=== PATIENT | female | born 1950 | race Caucasian/White ===

== ENCOUNTER 2024-08-10 15:12 | Observation (INO) ==
[2024-08-10 15:47] LABS: BASOPHILS % (AUTO) 0.1 % (0.2-1.0); EOSINOPHILS % (AUTO) 0.1 % (0.9-2.9); HEMATOCRIT 38.2 % (36.0-47.0); HEMOGLOBIN 12.9 g/dL (12.0-16.0); LYMPHOCYTES # (AUTO) 1.2 X10^3/uL (1.3-2.9); LYMPHOCYTES % (AUTO) 4.3 % (21.0-51.0); MEAN CORPUSCULAR HEMOGLOBIN 30.8 pg (27.0-34.0); MEAN CORPUSCULAR HGB CONC 33.8 g/dL (33.0-35.0); MEAN PLATELET VOLUME 7.8 fL (7.4-11.0); MONOCYTES # (AUTO) 1.1 x10^3/uL (0.3-0.8); NEUTROPHILS # (AUTO) 24.9 x10^3/uL (2.2-4.8); NEUTROPHILS % (AUTO) 91.5 % (42.0-75.0); PLATELET COUNT 417 X10^3/uL (150.0-450.0); RED BLOOD COUNT 4.19 X10^6/uL (3.5-5.4); RED CELL DISTRIBUTION WIDTH 12.7 % (11.6-16.5); WHITE BLOOD COUNT 27.2 X10^3/uL (3.6-10.0)
[2024-08-10 15:54] LABS: ALANINE AMINOTRANSFERASE 69 Units/L (12-78); ALBUMIN 3.4 g/dL (3.4-5.0); ALKALINE PHOSPHATASE 157 Units/L (46-116); ASPARTATE AMINO TRANSFERASE 52 Units/L (15-37); BLOOD UREA NITROGEN 15 mg/dL (7-18); CALCIUM 10.7 mg/dL (8.5-10.1); CARBON DIOXIDE 29.4 mmol/L (21-32); CHLORIDE 94 mmol/L (98-107); COR NA(FOR HYPERGLY) 133 mmol/L (136-145); CREATINE KINASE 485 Units/L (26-192); CREATININE 0.79 mg/dL (0.55-1.02); GLUCOSE 129 mg/dL (65-99); POTASSIUM 3.3 mmol/L (3.5-5.1); SODIUM 132 mmol/L (136-145); TOTAL PROTEIN 7.4 g/dL (6.4-8.2); eGFR NON BLACK RACES > 60 (>60)
[2024-08-10] MEDS ORDERED: NS 1,000 ML IV 2,000 ML ONE (15:55)
[2024-08-10 16:14] LABS: PLATELET MORPHOLOGY COMMENT NORMAL (NORMAL)
[2024-08-10] MEDS: NS 1,000 ML IV 1,000 ML IV ONE (16:36)
--- NOTE | 2024-08-10 17:16 | RAD ---
EXAM:CHESTHISTORY:n/v/d;COMPARISON: None.TECHNIQUE:Frontal view of the chest was submitted for interpretation.FINDINGS:The cardiomediastinal silhouette is within normal limits. Central pulmonary vascular congestion noted.IMPRESSION:Central pulmonary vascular congestion may be a sign of early pulmonary edema.THIS IS AN ELECTRONICALLY VERIFIED FINAL REPORT08/10/2024 5:12 PM - Electronically signed by Taj Sequeira MD
[2024-08-10 17:24] VITALS: BMI 25.7
[2024-08-10] MEDS: CONSULT PHARMACY - ANTIBIOTIC XX SCH (18:10)
[2024-08-10] MEDS: CONSULT PHARMACY - POTASSIUM & MAGNESIUM XX SCH (18:11)
[2024-08-10] MEDS: NS 1,000 ML IV 1,000 ML IV SCH (18:55)
[2024-08-10 19:23] LABS: BILIRUBIN,URINE NEGATIVE (NEGATIVE); BLOOD/HEMOGLOBIN,URINE 2+ (NEGATIVE); GLUCOSE, URINE NEGATIVE (NEGATIVE); KETONES,URINE 2+ (NEGATIVE); LEUKOCYTE ESTERASE ,URINE 2+ (NEGATIVE); NITRITES,URINE NEGATIVE (NEGATIVE); PROTEIN,URINE 2+ (NEGATIVE); UROBILINOGEN,URINE 1+ (NORMAL)
[2024-08-10 19:26] LABS: APPEARANCE,URINE CLEAR (CLEAR); BACTERIA,URINE 1+ /HPF (NEGATIVE); COLOR,URINE PALE YELLOW (YELLOW); RBC,URINE NONE SEEN /HPF (0-3); SQUAMOUS EPITHELIAL CELL,UR RARE /HPF (NEGATIVE)
[2024-08-10] MEDS: MAG-OX TAB PO SCH (20:52)
[2024-08-10] MEDS: KLOR-CON PO SCH (20:53)
[2024-08-10] MEDS: LEVAQUIN PREMIX IV 750 MG 750 MG/150 ML BAG IV SCH (20:53)
[2024-08-10] MEDS: FORTAZ or TAZICEF VIAL INJ IVP SCH (23:14)
[2024-08-11 06:29] LABS: BASOPHILS % (AUTO) 0.2 % (0.2-1.0); HEMOGLOBIN 11.5 g/dL (12.0-16.0); LYMPHOCYTES # (AUTO) 1.5 X10^3/uL (1.3-2.9); LYMPHOCYTES % (AUTO) 7.8 % (21.0-51.0); MEAN CORPUSCULAR HEMOGLOBIN 30.9 pg (27.0-34.0); MEAN CORPUSCULAR HGB CONC 33.8 g/dL (33.0-35.0); MEAN CORPUSCULAR VOLUME 91.4 fL (80.0-100.0); MEAN PLATELET VOLUME 8.4 fL (7.4-11.0); MONOCYTES # (AUTO) 1.1 x10^3/uL (0.3-0.8); MONOCYTES % (AUTO) 5.6 % (0.0-13.0); NEUTROPHILS # (AUTO) 16.3 x10^3/uL (2.2-4.8); NEUTROPHILS % (AUTO) 86.4 % (42.0-75.0); PLATELET COUNT 378 X10^3/uL (150.0-450.0); RED BLOOD COUNT 3.72 X10^6/uL (3.5-5.4); RED CELL DISTRIBUTION WIDTH 12.6 % (11.6-16.5); WHITE BLOOD COUNT 18.9 X10^3/uL (3.6-10.0)
[2024-08-11 06:47] LABS: ALANINE AMINOTRANSFERASE 53 Units/L (12-78); ALBUMIN 2.6 g/dL (3.4-5.0); ALKALINE PHOSPHATASE 118 Units/L (46-116); ASPARTATE AMINO TRANSFERASE 43 Units/L (15-37); BLOOD UREA NITROGEN 14 mg/dL (7-18); CALCIUM 9.9 mg/dL (8.5-10.1); CHLORIDE 99 mmol/L (98-107); CREATININE 0.71 mg/dL (0.55-1.02); GLUCOSE 91 mg/dL (65-99); MAGNESIUM 1.5 mg/dL (2.0-2.9); POTASSIUM 3.8 mmol/L (3.5-5.1); SODIUM 135 mmol/L (136-145); TOTAL PROTEIN 6.1 g/dL (6.4-8.2); eGFR NON BLACK RACES > 60 (>60)
[2024-08-11] MEDS: CONSULT PHARMACY - POTASSIUM & MAGNESIUM XX SCH (07:33)
[2024-08-11] MEDS: TYLENOL 325 MG TAB PO PRN (09:42)
[2024-08-11] MEDS: MAG-OX TAB PO SCH (09:42)
[2024-08-11] MEDS: K-DUR TAB 20 MEQ PO SCH (09:42)
[2024-08-11] MEDS: COREG TAB 6.25 MG PO SCH (13:25)
[2024-08-11] MEDS: MAGNESIUM SULFATE 1 GRAM/100 mL PREMIX 1 G/100 ML BAG IV SCH (13:25)
[2024-08-11] MEDS: LASIX PO SCH (13:25)
[2024-08-11] MEDS: LOVENOX INJ 40 MG SYR SC SCH (13:25)
[2024-08-12 05:48] LABS: BASOPHILS # (AUTO) 0.1 X10^3/uL (0.0-0.1); BASOPHILS % (AUTO) 0.6 % (0.2-1.0); EOSINOPHILS % (AUTO) 0.2 % (0.9-2.9); HEMATOCRIT 32.2 % (36.0-47.0); HEMOGLOBIN 11.1 g/dL (12.0-16.0); LYMPHOCYTES # (AUTO) 1.5 X10^3/uL (1.3-2.9); MEAN CORPUSCULAR HEMOGLOBIN 31.5 pg (27.0-34.0); MEAN CORPUSCULAR HGB CONC 34.5 g/dL (33.0-35.0); MEAN CORPUSCULAR VOLUME 91.3 fL (80.0-100.0); MONOCYTES # (AUTO) 0.9 x10^3/uL (0.3-0.8); MONOCYTES % (AUTO) 5.8 % (0.0-13.0); NEUTROPHILS # (AUTO) 12.6 x10^3/uL (2.2-4.8); NEUTROPHILS % (AUTO) 83.4 % (42.0-75.0); PLATELET COUNT 352 X10^3/uL (150.0-450.0); RED BLOOD COUNT 3.53 X10^6/uL (3.5-5.4); RED CELL DISTRIBUTION WIDTH 12.8 % (11.6-16.5); WHITE BLOOD COUNT 15.2 X10^3/uL (3.6-10.0)
[2024-08-12 06:05] LABS: ALANINE AMINOTRANSFERASE 49 Units/L (12-78); ALBUMIN 2.3 g/dL (3.4-5.0); ALKALINE PHOSPHATASE 107 Units/L (46-116); ASPARTATE AMINO TRANSFERASE 31 Units/L (15-37); BLOOD UREA NITROGEN 12 mg/dL (7-18); CALCIUM 9.7 mg/dL (8.5-10.1); CARBON DIOXIDE 28.6 mmol/L (21-32); CHLORIDE 100 mmol/L (98-107); COR CA(FOR HYPOALB) 11.1 mg/dL (8.5-10.1); CREATININE 0.87 mg/dL (0.55-1.02); GLUCOSE 110 mg/dL (65-99); MAGNESIUM 2.2 mg/dL (2.0-2.9); POTASSIUM 3.7 mmol/L (3.5-5.1); SODIUM 134 mmol/L (136-145); eGFR NON BLACK RACES > 60 (>60)
[2024-08-12] MEDS: HYDROCHLOROTHIAZIDE 12.5 MG CAP PO SCH (09:45)
[2024-08-12] MEDS: NORVASC TAB 10 MG PO SCH (09:45)
[2024-08-12] MEDS: DIOVAN TAB 160 MG PO SCH (09:45)
--- NOTE | 2024-08-12 10:17 | PCM.PROG ---
Progress Note Progress Note for Day of Date of Exam: 08/12/24 Subjective Subjective: Patient seen at bedside, no acute events overnight. She is currently admitted for generalized weakness, recurrent falls and UTI. She has had multiple falls recently and has a clavicle fracture. Patient does live alone. She is currently on IV antibiotics for UTI. CT brain is pending. She reports feeling slightly better. Labs/imaging reviewed: -WBC 15.2 hemoglobin 11.1 potassium 3.7 mag 2.2 lactic acid 0.7 -Urine culture pending -Blood culture pending -CT brain pending -Chest x-ray: Pulmonary edema Plan: Follow-up CT brain, continue IV antibiotics. Follow pending cultures. Resume home medications. Replace electrolytes as per protocol. Consult physical therapy. Patient would like to go to rehab. Fall precautions. Repeat CXR. Monitor a.m. labs and imaging. Time spent for clinical assessment, reviewing labs/imaging, physical exam, decision making and documentation greater than 45 mins. Past Medical Family Social History Allergies: Allergies No Known Allergies Allergy (Verified 08/10/24 17:00) Vital Signs and I&O's Vital Signs: Vital Signs Temperature 98.3 F Temperature 98.3 F Pulse Rate [Right Brachial] 104 Pulse Rate [Right Brachial] 100 Respiratory Rate 18 Respiratory Rate 18 Blood Pressure [Right Arm] 138/70 Blood Pressure [Right Arm] 158/72 O2 Sat by Pulse Oximetry 93 O2 Sat by Pulse Oximetry 92 Intake and Output: Intake & Output 08/09/24 08/10/24 08/11/24 08/12/24 23:59 23:59 23:59 23:59 Intake Total 3134 / 3134 2658 / 2658 Output Total 1800 / 1800 1100 / 1100 Balance 1334 / 1334 1558 / 1558 Physical Exam Oriented: Normal Eyes: Normal Throat: Normal Respiratory: Generalized and Diminished Auscultation: Bowel Sounds: Normal Palpation: Normal Tenderness: Normal Skin: Normal Musculoskeletal: Left and Clavicle Psychiatric: Normal Mood Description: Calm Affect: Normal Speech Pattern: Clear and Appropriate Laboratory and Diagnostics 08/12/24 05:18 08/12/24 05:18 Labs: 08/10/24 18:00 Urine,Clean Catch Urine Culture - Preliminary Laboratory WBC 15.2 X10^3/uL (3.6-10.0) H 08/12/24 05:18 RBC 3.53 X10^6/uL (3.5-5.4) 08/12/24 05:18 Hgb 11.1 g/dL (12.0-16.0) L 08/12/24 05:18 Hct 32.2 % (36.0-47.0) L 08/12/24 05:18 MCV 91.3 fL (80.0-100.0) 08/12/24 05:18 MCH 31.5 pg (27.0-34.0) 08/12/24 05:18 MCHC 34.5 g/dL (33.0-35.0) 08/12/24 05:18 RDW 12.8 % (11.6-16.5) 08/12/24 05:18 Plt Count 352 X10^3/uL (150.0-450.0) 08/12/24 05:18 Plt Count Comment Adequate (ADEQUATE) 08/10/24 15:35 MPV 8.0 fL (7.4-11.0) 08/12/24 05:18 Neut % (Auto) 83.4 % (42.0-75.0) H 08/12/24 05:18 Lymph % (Auto) 10.0 % (21.0-51.0) L 08/12/24 05:18 [place] % (Auto) 5.8 % (0.0-13.0) 08/12/24 05:18 Eos % (Auto) 0.2 % (0.9-2.9) L 08/12/24 05:18 Baso % (Auto) 0.6 % (0.2-1.0) 08/12/24 05:18 Neut # (Auto) 12.6 x10^3/uL (2.2-4.8) H 08/12/24 05:18 Lymph # (Auto) 1.5 X10^3/uL (1.3-2.9) 08/12/24 05:18 [place] # (Auto) 0.9 x10^3/uL (0.3-0.8) H 08/12/24 05:18 Eos # (Auto) 0.0 x10^3/uL (0.0-0.2) 08/12/24 05:18 Baso # (Auto) 0.1 X10^3/uL (0.0-0.1) 08/12/24 05:18 Absolute Nucleated RBC 0.0 /100WBC 08/12/24 05:18 Total Counted 100 08/10/24 15:35 Neutrophils % (Manual) 90 % (39-76) H 08/10/24 15:35 Lymphocytes % (Manual) 6 % (13-43) L 08/10/24 15:35 Monocytes % (Manual) 4 % (4-9) 08/10/24 15:35 Plt Morphology Comment Normal (NORMAL) 08/10/24 15:35 RBC Morphology Normal (NORMAL) 08/10/24 15:35 Sodium 134 mmol/L (136-145) L 08/12/24 05:18 Corrected Sodium TNP 08/12/24 05:18 Potassium 3.7 mmol/L (3.5-5.1) 08/12/24 05:18 Chloride 100 mmol/L (98-107) 08/12/24 05:18 Carbon Dioxide 28.6 mmol/L (21-32) 08/12/24 05:18 BUN 12 mg/dL (7-18) 08/12/24 05:18 Creatinine 0.87 mg/dL (0.55-1.02) 08/12/24 05:18 Est GFR (MDRD) Af Amer > 60 (>60) 08/12/24 05:18 Est GFR (MDRD) Non-Af > 60 (>60) 08/12/24 05:18 Glucose 110 mg/dL (65-99) H 08/12/24 05:18 Lactic Acid 0.7 mmol/L (0.4-2.0) 08/10/24 22:30 Calcium 9.7 mg/dL (8.5-10.1) 08/12/24 05:18 Corrected Calcium 11.1 mg/dL (8.5-10.1) H 08/12/24 05:18 Magnesium 2.2 mg/dL (2.0-2.9) 08/12/24 05:18 Total Bilirubin 0.40 mg/dL (0.2-1.0) 08/12/24 05:18 AST 31 Units/L (15-37) 08/12/24 05:18 ALT 49 Units/L (12-78) 08/12/24 05:18 Alkaline Phosphatase 107 Units/L (46-116) 08/12/24 05:18 Creatine Kinase 485 Units/L (26-192) H 08/10/24 15:35 Total Protein 6.0 g/dL (6.4-8.2) L 08/12/24 05:18 Albumin 2.3 g/dL (3.4-5.0) L 08/12/24 05:18 Globulin 3.7 g/dL (2.5-4.5) 08/12/24 05:18 Albumin/Globulin Ratio 0.6 Ratio (1.1-2.1) L 08/12/24 05:18 Specimen Type Clean catch urine 08/10/24 18:00 Urine Color Pale yellow (YELLOW) 08/10/24 18:00 Urine Appearance Clear (CLEAR) 08/10/24 18:00 Urine pH 6.0 (5.0 - 8.0) 08/10/24 18:00 Ur Specific [place] 1.020 (1.000-1.030) 08/10/24 18:00 Urine Protein 2+ (NEGATIVE) 08/10/24 18:00 Urine Glucose (UA) Negative (NEGATIVE) 08/10/24 18:00 Urine Ketones 2+ (NEGATIVE) 08/10/24 18:00 Urine Blood 2+ (NEGATIVE) 08/10/24 18:00 Urine Nitrite Negative (NEGATIVE) 08/10/24 18:00 Urine Bilirubin Negative (NEGATIVE) 08/10/24 18:00 Urine Urobilinogen 1+ (NORMAL) 08/10/24 18:00 Ur Leukocyte Esterase 2+ (NEGATIVE) 08/10/24 18:00 Urine RBC None seen /HPF (0-3) 08/10/24 18:00 Urine WBC 10-20 /HPF (0-5) A 08/10/24 18:00 Ur Squamous Epith Cells Rare /HPF (NEGATIVE) 08/10/24 18:00 Urine Bacteria 1+ /HPF (NEGATIVE) 08/10/24 18:00 Ur Culture Indicated? Yes/culture set up 08/10/24 18:00 Plan (1) UTI (urinary tract infection): Status: Acute Qualifiers: Hematuria presence: without hematuria Urinary tract infection type: acute cystitis Qualified Code(s): N30.00 - Acute cystitis without hematuria (2) Generalized weakness: Status: Acute (3) Recurrent falls: Status: Acute (4) Clavicle fracture: Status: Acute Qualifiers: Clavicle location: unspecified part of clavicle Encounter type: sequela Fracture alignment: nondisplaced Fracture type: closed Laterality: left Qualified Code(s): S42.002S - Fracture of unspecified part of left clavicle, sequela (5) Hypomagnesemia: Status: Acute (6) Pulmonary edema: Status: Acute Qualifiers: Chronicity: acute Qualified Code(s): J81.0 - Acute pulmonary edema (7) HTN (hypertension): Status: Chronic Qualifiers: Hypertension type: primary hypertension Qualified Code(s): I10 - Ess ential (primary) hypertension
[2024-08-12 16:46] LABS: CRYPTOSPORIDIUM PARVUM ANTIGEN NEGATIVE (NEGATIVE); GIARDIA LAMBLIA ANTIGEN NEGATIVE (NEGATIVE)
--- NOTE | 2024-08-12 20:49 | CT ---
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
[2024-08-12] MEDS: DESYREL PO SCH (21:21)
--- NOTE | 2024-08-13 04:45 | RAD ---
EXAMINATION: CHEST, 1 VIEW HISTORY: f/u edema; . COMPARISON STUDY: Chest x-ray 08/10/2024 TECHNIQUE: Single portable AP view of the chest FINDINGS: Lungs are expanded. Heart size and pulmonary vascular pattern appear normal. CP angles are sharp. Bones are intact. IMPRESSION: No acute process seen. THIS IS AN ELECTRONICALLY VERIFIED FINAL REPORT 08/13/2024 4:41 AM - Electronically signed by Isabella Osorio MD
[2024-08-13 06:06] LABS: BASOPHILS # (AUTO) 0.1 X10^3/uL (0.0-0.1); BASOPHILS % (AUTO) 0.6 % (0.2-1.0); EOSINOPHILS % (AUTO) 0.1 % (0.9-2.9); HEMATOCRIT 33.1 % (36.0-47.0); HEMOGLOBIN 11.2 g/dL (12.0-16.0); LYMPHOCYTES # (AUTO) 1.8 X10^3/uL (1.3-2.9); MEAN CORPUSCULAR HEMOGLOBIN 30.7 pg (27.0-34.0); MEAN CORPUSCULAR HGB CONC 33.9 g/dL (33.0-35.0); MEAN CORPUSCULAR VOLUME 90.7 fL (80.0-100.0); MEAN PLATELET VOLUME 8.2 fL (7.4-11.0); MONOCYTES # (AUTO) 0.8 x10^3/uL (0.3-0.8); MONOCYTES % (AUTO) 5.5 % (0.0-13.0); NEUTROPHILS % (AUTO) 81.8 % (42.0-75.0); PLATELET COUNT 379 X10^3/uL (150.0-450.0); RED BLOOD COUNT 3.65 X10^6/uL (3.5-5.4); RED CELL DISTRIBUTION WIDTH 12.4 % (11.6-16.5); WHITE BLOOD COUNT 14.6 X10^3/uL (3.6-10.0)
[2024-08-13 06:20] LABS: ALANINE AMINOTRANSFERASE 52 Units/L (12-78); ALBUMIN 2.3 g/dL (3.4-5.0); ALKALINE PHOSPHATASE 106 Units/L (46-116); ASPARTATE AMINO TRANSFERASE 35 Units/L (15-37); BLOOD UREA NITROGEN 11 mg/dL (7-18); CALCIUM 10.3 mg/dL (8.5-10.1); CARBON DIOXIDE 29.7 mmol/L (21-32); CHLORIDE 96 mmol/L (98-107); COR CA(FOR HYPOALB) 11.7 mg/dL (8.5-10.1); COR NA(FOR HYPERGLY) 134 mmol/L (136-145); CREATININE 0.85 mg/dL (0.55-1.02); GLUCOSE 117 mg/dL (65-99); MAGNESIUM 1.9 mg/dL (2.0-2.9); POTASSIUM 3.1 mmol/L (3.5-5.1); SODIUM 134 mmol/L (136-145); TOTAL PROTEIN 6.5 g/dL (6.4-8.2); eGFR NON BLACK RACES > 60 (>60)
[2024-08-13] MEDS ORDERED: CONSULT PHARMACY - POTASSIUM & MAGNESIUM XX SCH (07:00)
[2024-08-13] MEDS: MAG-OX TAB PO SCH (08:51)
[2024-08-13] MEDS: K-DUR TAB 20 MEQ PO SCH (08:51)
[2024-08-13 12:12] VITALS: BP 139/67; PULSE 92; RESP 17; TEMP 98.1; O2SAT 96
--- NOTE | 2024-08-15 15:39 | DR.H&P ---
H&P - History & Physical for Day of: H&P Date: 08/10/24 - Chief Complaint Chief Complaint: DECREASED RESPONSIVENESS, WEAKNESS, FREQUENT FALLS - History of Present Illness History of Present Illness: IS A 74 YEAR OLD PATIENT OF OURS. HER FAMILY REPORTS THAT ON THE MORNING OF 08/10/24, PATIENT WAS FOUND WITH DECREASED RESPONSIVENESS ON THE FLOOR OF HER HOME. THEY REPORTED THAT SHE HAS HAD FREQUENT FALLS AND HAD RECENTLY FRACTURED HER CLAVICLE (08/03/24). SHE HAS ALSO HAD A FEW EPISODES OF VOMITING AND DIARRHEA. FAMILY MADE CONTACT WITH ID, AT WHICH TIME SHE WAS DIRECT ADMITTED TO THE HOSPITAL FOR FURTHER EVALUATION. ON ARRIVAL TO THE HOSPITAL, VITALS WERE 97.0-121-16-98%-147/97. LABS WERE OBTAINED. WBC 27.2, HGB 12.9, HCT 38.2, SODIUM 132, POTASSIUM 3.3, CHLORIDE 94, BUN 15, CREATININE 0.79, GLUCOSE 129, MAGNESIUM 1.6, AST 52, ALT 69, ALK PHOS 157, CREATINE KINASE 485, LACTIC ACID 2.3. URINALYSIS WAS OBTAINED AND REVEALED: WBC 10-20, LEUKOCYTES 2+, BACTERIA 1+, NITRITE NEGATIVE. A CHEST X-RAY WAS OBTAINED AND REVEALED: CENTRAL PULMONARY VASCULAR CONGESTION MAY BE A SIGN OF EARLY PULMONARY EDEMA. SHE WAS GIVEN A NORMAL SALINE BOLUS X 2, FORTAZ 1G IV Q8H, LEVAQUIN 750MG IV DAILY, AND THE POTASSIUM AND MAGNESIUM PROTOCOLS. WE WILL OBTAIN A BRAIN CT WITHOUT CONTRAST. OTHERWISE, WE WILL FOLLOW-UP WITH AM LABS AND CONTINUE TO MONITOR. TIME SPENT ON CLINICAL ASSESSMENT, REVIEWING LABS AND IMAGING, DECISION MAKING, AND DOCUMENTATION WAS GREATER THAN 75 MINUTES. - Past Medical History Past Medical History: Hypertension Additional Medical History: VERTIGO, INSOMNIA - Past Surgical History Surgical History: Cholecystectomy, Hysterectomy, Ortho Surgery, Tonsillectomy - Family History Family Medical History: Hypertension - Social History Does patient currently use any type of tobacco product: No Type of Tobacco Use: None Does any household member use tobacco: No Alcohol Use: None Drug Use: None - Review of Systems Constitutional: Weakness Eyes: No Symptoms Reported ENT: No Symptoms Reported Respiratory: No Symptoms Reported Cardiovascular: No Symptoms Reported Gastrointestinal: Nausea, Vomiting, Diarrhea Genitourinary: No Symptoms Reported Musculoskeletal: No Symptoms Reported Skin: No Symptoms Reported Neurological: Weakness Oriented: Person, Place Eyes: Normal Ear: Normal Nose: Normal Throat: Normal Respiratory: Diminished Throughout Cardiovascular: Tachycardia : Normal Auscultation: Bowel Sounds: Normal Palpation: Normal Tenderness: Normal Skin: Decreased Turgur Musculoskeletal: Normal Psychiatric: Normal Mood Description: Calm Affect: Normal Speech Pattern: Clear - Assessment/Plan (1) UTI (urinary tract infection) Qualifiers: Urinary tract infection type: acute cystitis Hematuria presence: without hematuria Qualified Code(s): N30.00 - Acute cystitis without hematuria Status: Acute Plan: ADMIT, IV FLUIDS, IV ANTIBIOTICS, PT/OT (2) Recurrent falls Status: Acute (3) Generalized weakness Status: Acute (4) Clavicle fracture Qualifiers: Encounter type: sequela Clavicle location: unspecified part of clavicle Fracture type: closed Fracture alignment: nondisplaced Laterality: left Qualified Code(s): S42.002S - Fracture of unspecified part of left clavicle, sequela Status: Acute (5) HTN (hypertension) Qualifiers: Hypertension type: primary hypertension Qualified Code(s): I10 - Essential (primary) hypertension Status: Chronic - Allergies Allergies/Adverse Reactions: Allergies Allergy/AdvReac Type Severity Reaction Status Date / Time No Known Allergies Allergy Verified 08/10/24 17:00 - Medications Home Medications: Home Medications Medication Instructions Recorded Confirmed amlodipine 10 mg tablet 10 mg PO QDAY 08/10/24 08/10/24 linaclotide 72 mcg capsule 72 mcg PO DAILY 08/10/24 08/10/24 (Linzess) meclizine 25 mg tablet 25 mg PO TID PRN 08/10/24 08/10/24 trazodone 50 mg tablet 50 mg PO QPM 08/10/24 08/10/24 valsartan 160 1 tab PO QDAY 08/10/24 08/10/24 mg-hydrochlorothiazide 12.5 mg tablet Previous Rx's Medication Instructions Recorded carvedilol 6.25 mg tablet 6.25 mg PO BID 30 days #60 tabs 08/13/24 levofloxacin 500 mg tablet 500 mg PO QDAY 5 days #5 tabs 08/13/24 potassium chloride 20 mEq 20 meq PO DAILY 5 days #5 tabs 08/13/24 tablet,extended release(part/cryst) (Klor-Con M)
--- NOTE | 2024-08-19 10:03 | W.DIS.FURT ---
Summary of Discharge Discharge Summary of Date Date of Exam: 08/13/24 Admission Date Date of Admission: 08/10/24 Admission Diagnosis Patient Problems (Updated 08/18/24 @ 10:41 by Shobha Wilder MD) HTN (hypertension) (Chronic) I10 Clavicle fracture (Acute) S42.009A Recurrent falls (Chronic) R29.6 Generalized weakness (Acute) R53.1 UTI (urinary tract infection) (Chronic) N39.0 Hospital Course: Ms. Dooley is a 74-year-old female with a past medical history of hypertension, recurrent falls, constipation and insomnia presented after having a fall and was found on the floor with decreased responsiveness. She was seen in the ER few days ago and was noted to have fracture in the humerus. She was directly admitted for further evaluation. Brain CT was negative for any acute changes. She was initially wearing a cast on her left arm. Ortho was consulted and recommended sling placement. She was working with physical therapy. Her labs did show elevated white count and UA concerning for UTI. She was started on IV fluids and antibiotics. She was feeling better, ambulating in the room. Her labs were monitored daily and electrolytes replace as needed. Initially, she did want to go to SNF but later declined. Patient was accepted at SNF but preferred to go home instead. She was stable to be discharged home on p.o. antibiotics. She will follow-up with PCP as scheduled. Vital Signs: Vital Signs (72 hours) 08/10/24 16:00 08/10/24 17:00 08/10/24 17:09 Temperature 97 F L Pulse Rate 102 H Pulse Rate [Right Brachial] 121 H Respiratory Rate 16 Blood Pressure [Right Arm] 147/97 O2 Sat by Pulse Oximetry 98 98 Oxygen Delivery Method Room Air Room Air 08/10/24 15:35 08/10/24 20:09 08/10/24 20:00 Temperature 98.3 F Pulse Rate Pulse Rate [Right Brachial] 110 H Respiratory Rate 16 Blood Pressure [Right Arm] 128/73 O2 Sat by Pulse Oximetry 94 L Oxygen Delivery Method Room Air Room Air Room Air 08/10/24 19:00 08/11/24 00:00 08/11/24 04:00 Temperature 99.4 F 98 F Pulse Rate Pulse Rate [Right Brachial] 126 H 116 H Respiratory Rate 18 16 Blood Pressure [Right Arm] 125/58 125/60 O2 Sat by Pulse Oximetry 95 93 L Oxygen Delivery Method Room Air Room Air Room Air 08/11/24 09:42 08/11/24 07:45 08/11/24 08:00 Temperature 98 F Pulse Rate Pulse Rate [Right Brachial] 116 H Respiratory Rate 16 20 Blood Pressure [Right Arm] 146/70 O2 Sat by Pulse Oximetry 97 Oxygen Delivery Method Room Air Room Air 08/11/24 07:00 08/11/24 12:00 08/11/24 10:42 Temperature 98.7 F Pulse Rate Pulse Rate [Right Brachial] 111 H Respiratory Rate 20 16 Blood Pressure [Right Arm] 134/75 O2 Sat by Pulse Oximetry 96 Oxygen Delivery Method Room Air Room Air 08/11/24 16:00 08/11/24 19:00 08/11/24 20:00 Temperature 98.9 F 98.1 F Pulse Rate Pulse Rate [Right Brachial] 93 H 93 H Respiratory Rate 17 16 Blood Pressure [Right Arm] 129/60 141/70 O2 Sat by Pulse Oximetry 94 L 93 L Oxygen Delivery Method Room Air Room Air Room Air 08/12/24 00:00 08/12/24 04:00 08/12/24 07:00 Temperature 98.5 F 98.3 F Pulse Rate Pulse Rate [Right Brachial] 98 H 100 H Respiratory Rate 20 18 Blood Pressure [Right Arm] 127/59 158/72 O2 Sat by Pulse Oximetry 92 L 92 L Oxygen Delivery Method Room Air Room Air Room Air 08/12/24 08:00 08/12/24 12:00 08/12/24 16:00 Temperature 98.3 F 98.1 F 97.6 F Pulse Rate Pulse Rate [Right Brachial] 104 H 93 H 104 H Respiratory Rate 18 19 19 Blood Pressure [Right Arm] 138/70 153/72 132/67 O2 Sat by Pulse Oximetry 93 L 93 L 93 L Oxygen Delivery Method Room Air Room Air Room Air 08/12/24 19:00 08/12/24 20:00 08/13/24 00:00 Temperature 97.7 F 97.7 F Pulse Rate Pulse Rate [Right Brachial] 95 H 95 H Respiratory Rate 20 18 Blood Pressure [Right Arm] 118/77 152/73 O2 Sat by Pulse Oximetry 100 97 Oxygen Delivery Method Room Air Room Air Room Air 08/13/24 04:00 08/13/24 07:00 08/13/24 08:00 Temperature 97.2 F L 98.3 F Pulse Rate Pulse Rate [Right Brachial] 92 H 91 H Respiratory Rate 18 18 Blood Pressure [Right Arm] 172/80 138/63 O2 Sat by Pulse Oximetry 96 94 L Oxygen Delivery Method Room Air Room Air Room Air Labs: Laboratory Last Values WBC 14.6 X10^3/uL (3.6-10.0) H 08/13/24 05:29 RBC 3.65 X10^6/uL (3.5-5.4) 08/13/24 05:29 Hgb 11.2 g/dL (12.0-16.0) L 08/13/24 05:29 Hct 33.1 % (36.0-47.0) L 08/13/24 05:29 MCV 90.7 fL (80.0-100.0) 08/13/24 05:29 MCH 30.7 pg (27.0-34.0) 08/13/24 05:29 MCHC 33.9 g/dL (33.0-35.0) 08/13/24 05:29 RDW 12.4 % (11.6-16.5) 08/13/24 05:29 Plt Count 379 X10^3/uL (150.0-450.0) 08/13/24 05:29 Plt Count Comment Adequate (ADEQUATE) 08/10/24 15:35 MPV 8.2 fL (7.4-11.0) 08/13/24 05:29 Neut % (Auto) 81.8 % (42.0-75.0) H 08/13/24 05:29 Lymph % (Auto) 12.0 % (21.0-51.0) L 08/13/24 05:29 [place] % (Auto) 5.5 % (0.0-13.0) 08/13/24 05:29 Eos % (Auto) 0.1 % (0.9-2.9) L 08/13/24 05:29 Baso % (Auto) 0.6 % (0.2-1.0) 08/13/24 05:29 Neut # (Auto) 12.0 x10^3/uL (2.2-4.8) H 08/13/24 05:29 Lymph # (Auto) 1.8 X10^3/uL (1.3-2.9) 08/13/24 05:29 [place] # (Auto) 0.8 x10^3/uL (0.3-0.8) 08/13/24 05:29 Eos # (Auto) 0.0 x10^3/uL (0.0-0.2) 08/13/24 05:29 Baso # (Auto) 0.1 X10^3/uL (0.0-0.1) 08/13/24 05:29 Absolute Nucleated RBC 0.1 /100WBC 08/13/24 05:29 Total Counted 100 08/10/24 15:35 Neutrophils % (Manual) 90 % (39-76) H 08/10/24 15:35 Lymphocytes % (Manual) 6 % (13-43) L 08/10/24 15:35 Monocytes % (Manual) 4 % (4-9) 08/10/24 15:35 Plt Morphology Comment Normal (NORMAL) 08/10/24 15:35 RBC Morphology Normal (NORMAL) 08/10/24 15:35 Sodium 134 mmol/L (136-145) L 08/13/24 05:29 Corrected Sodium 134 mmol/L (136-145) L 08/13/24 05:29 Potassium 3.1 mmol/L (3.5-5.1) L 08/13/24 05:29 Chloride 96 mmol/L (98-107) L 08/13/24 05:29 Carbon Dioxide 29.7 mmol/L (21-32) 08/13/24 05:29 BUN 11 mg/dL (7-18) 08/13/24 05:29 Creatinine 0.85 mg/dL (0.55-1.02) 08/13/24 05:29 Est GFR (MDRD) Af Amer > 60 (>60) 08/13/24 05:29 Est GFR (MDRD) Non-Af > 60 (>60) 08/13/24 05:29 Glucose 117 mg/dL (65-99) H 08/13/24 05:29 Lactic Acid 0.7 mmol/L (0.4-2.0) 08/10/24 22:30 Calcium 10.3 mg/dL (8.5-10.1) H 08/13/24 05:29 Corrected Calcium 11.7 mg/dL (8.5-10.1) H 08/13/24 05: Magnesium 1.9 mg/dL (2.0-2.9) L 08/13/24 05:29 Total Bilirubin 0.50 mg/dL (0.2-1.0) 08/13/24 05:29 AST 35 Units/L (15-37) 08/13/24 05: ALT 52 Units/L (12-78) 08/13/24 05:29 Alkaline Phosphatase 106 Units/L (46-116) 08/13/24 05: Creatine Kinase 485 Units/L (26-192) H 08/10/24 15:35 B-Natriuretic Peptide 37.8 pg/mL (0-79) 08/13/24 05: Total Protein 6.5 g/dL (6.4-8.2) 08/13/24 05: Albumin 2.3 g/dL (3.4-5.0) L 08/13/24 05: Globulin 4.2 g/dL (2.5-4.5) 08/13/24 05: Albumin/Globulin Ratio 0.5 Ratio (1.1-2.1) L 08/13/24 05:29 Specimen Type Clean catch urine 08/10/24 18:00 Urine Color Pale yellow (YELLOW) 08/10/24 18:00 Urine Appearance Clear (CLEAR) 08/10/24 18:00 Urine pH 6.0 (5.0 - 8.0) 08/10/24 18:00 Ur Specific [place] 1.020 (1.000-1.030) 08/10/24 18:00 Urine Protein 2+ (NEGATIVE) 08/10/24 18:00 Urine Glucose (UA) Negative (NEGATIVE) 08/10/24 18:00 Urine Ketones 2+ (NEGATIVE) 08/10/24 18:00 Urine Blood 2+ (NEGATIVE) 08/10/24 18:00 Urine Nitrite Negative (NEGATIVE) 08/10/24 18:00 Urine Bilirubin Negative (NEGATIVE) 08/10/24 18:00 Urine Urobilinogen 1+ (NORMAL) 08/10/24 18:00 Ur Leukocyte Esterase 2+ (NEGATIVE) 08/10/24 18:00 Urine RBC None seen /HPF (0-3) 08/10/24 18:00 Urine WBC 10-20 /HPF (0-5) A 08/10/24 18:00 Ur Squamous Epith Cells Rare /HPF (NEGATIVE) 08/10/24 18:00 Urine Bacteria 1+ /HPF (NEGATIVE) 08/10/24 18:00 Ur Culture Indicated? Yes/culture set up 08/10/24 18:00 Stl Occult Blood (IFOB) Negative (NEGATIVE) 08/12/24 14:35 Stool for White Cells Negative (NEGATIVE) 08/12/24 14:35 Stl C. diff Tox B Gene Negative (NEGATIVE) 08/12/24 14:35 Stl C. diff [id number] Presumptive negative (NEGATIVE) 08/12/24 14:35 Cryptosporid parvum Ag Negative (NEGATIVE) 08/12/24 14:35 Giardia lamblia Ag Negative (NEGATIVE) 08/12/24 14:35 Reason For Visit: NAUSEA, VOMITTING, DIARRHEA Discharge Diagnosis All Active Problems (Updated 08/18/24 @ 10:41 by Shobha Wilder MD) Proximal humerus fracture (Acute) HTN (hypertension) (Chronic) Pulmonary edema (Acute) Hypomagnesemia (Acute) Clavicle fracture (Acute) Recurrent falls (Chronic) Generalized weakness (Acute) UTI (urinary tract infection) (Chronic) Plan of Treatment: Continue with present treatment and follow up plan. Pt is to keep follow up appointment as instructed and take medications as ordered. Discharge Medications Discharge Medications: No Known Allergies Allergy (Verified 08/10/24 17:00) CONTINUE taking the following medications amlodipine 10 mg tablet 10 mg PO QDAY 08/10/24 [History] linaclotide 72 mcg capsule (Linzess) 72 mcg PO DAILY 08/10/24 [History] meclizine 25 mg tablet 25 mg PO TID PRN 08/10/24 [History] trazodone 50 mg tablet 50 mg PO QPM 08/10/24 [History] valsartan 160 mg-hydrochlorothiazide 12.5 mg tablet 1 tab PO QDAY 08/10/24 [History] New Prescriptions carvedilol 6.25 mg tablet 6.25 mg PO BID 30 days #60 tabs 08/13/24 [Rx] levofloxacin 500 mg tablet 500 mg PO QDAY 5 days #5 tabs 08/13/24 [Rx] potassium chloride 20 mEq tablet,extended release(part/cryst) (Klor-Con M) 20 meq PO DAILY 5 days #5 tabs 08/13/24 [Rx] Discharge Disposition Discharge Disposition: Home with home health services Discharge Condition: Stable Discharge Plan Discharge Plan Hospital Course: Ms. Dooley is a 74-year-old female with a past medical history of hypertension, recurrent falls, constipation and insomnia presented after having a fall and was found on the floor with decreased responsiveness. She was seen in the ER few days ago and was noted to have fracture in the humerus. She was directly admitted for further evaluation. Brain CT was negative for any acute changes. She was initially wearing a cast on her left arm. Ortho was consulted and recommended sling placement. She was working with physical therapy. Her labs did show elevated white count and UA concerning for UTI. She was started on IV fluids and antibiotics. She was feeling better, ambulating in the room. Her labs were monitored daily and electrolytes replace as needed. Initially, she did want to go to SNF but later declined. Patient was accepted at SNF but preferred to go home instead. She was stable to be discharged home on p.o. antibiotics. She will follow-up with PCP as scheduled. Patient Disposition: HOME HEALTH SERVICE Condition: Stable Health Concerns: Post Hospitalization: new medications and changes needed to prevent readmission or further decline. Pt educated and given instructions on all concerns. Care Plan Goals: Problem: Pain/Alteration in Comfort Goal: Improve/ Resolve Pain; Achieve Pain Tolerance Instructions: Take pain medications as prescribed. Contact your primary care provider if your pain is unrelieved or worsens. Follow up with primary care provider as directed. Plan of Treatment: Continue with present treatment and follow up plan. Pt is to keep follow up appointment as instructed and take medications as ordered. Prescription drug monitoring program results: PDMP reviewed and no concerns identified Prescriptions: New carvedilol 6.25 mg Tablet 6.25 mg PO BID 30 Days Qty: 60 0RF potassium chloride [Klor-Con M20] 20 mEq Tablet,Er Particles/Crystals 20 meq PO DAILY 5 Days Qty: 5 0RF levofloxacin 500 mg tablet 500 mg PO QDAY 5 Days Qty: 5 0RF Patient Comments: Prescribed 08/13/24 times 5 doses Continued trazodone 50 mg tablet 50 mg PO QPM valsartan-hydrochlorothiazide 160-12.5 mg tablet 1 tab PO QDAY meclizine 25 mg tablet 25 mg PO TID PRN amlodipine 10 mg tablet 10 mg PO QDAY Linzess 72 mcg capsule 72 mcg PO DAILY Patient Comments: [NO ORIGINAL SIG] Follow ups/Referrals Follow ups/Referrals: MIROSLAVA MOELLER [STAFF PHYSICIAN] - 1 WEEK Jann Vargas [Primary Care Provider] - 08/19/24 10:00 am Instructions Instructions: Urinary Tract Infection, Female, Fatigue, Weakness: What to Know, [id number] Stand Alone Forms: Excuse From Work or School, Find Help Web Site, [facility], Post [facility] Follow Up Care
== END 2024-08-13 12:30 | disposition home health service (06) ==
LOC: MED/SURG
PROVIDERS: ADMIT Internal Medicine; ATTEND Internal Medicine
DX: E87.6 Hypokalemia; Z91.81 History of falling; E83.42 Hypomagnesemia; R19.7 Diarrhea, unspecified; Z16.11 Resistance to penicillins; R11.2 Nausea with vomiting, unspecified; R29.6 Repeated falls; E87.1 Hypo-osmolality and hyponatremia; R26.89 Other abnormalities of gait and mobility; B96.89 Other specified bacterial agents as the cause of diseases classified elsewhere; R53.1 Weakness; M62.82 Rhabdomyolysis; I10 Essential (primary) hypertension; R41.82 Altered mental status, unspecified; N39.0 Urinary tract infection, site not specified; S42.002S Fracture of unspecified part of left clavicle, sequela; Y92.89 Other specified places as the place of occurrence of the external cause; J81.0 Acute pulmonary edema; Z66 Do not resuscitate

== ENCOUNTER 2024-08-15 14:35 | Observation (INO) ==
[2024-08-15 20:18] LABS: EOSINOPHILS # (AUTO) 0.2 x10^3/uL (0.0-0.2); HEMOGLOBIN 11.4 g/dL (12.0-16.0)
[2024-08-15 20:25] LABS: RED BLOOD COUNT 3.72 X10^6/uL (3.5-5.4); WHITE BLOOD COUNT 18.8 X10^3/uL (3.6-10.0)
[2024-08-15 20:26] LABS: BASOPHILS # (AUTO) 0.1 X10^3/uL (0.0-0.1); BASOPHILS % (AUTO) 0.7 % (0.2-1.0); EOSINOPHILS % (AUTO) 0.9 % (0.9-2.9); HEMATOCRIT 34.1 % (36.0-47.0); LYMPHOCYTES # (AUTO) 2.9 X10^3/uL (1.3-2.9); LYMPHOCYTES % (AUTO) 15.4 % (21.0-51.0); MEAN CORPUSCULAR HEMOGLOBIN 30.5 pg (27.0-34.0); MEAN CORPUSCULAR HGB CONC 33.3 g/dL (33.0-35.0); MEAN CORPUSCULAR VOLUME 91.6 fL (80.0-100.0); MEAN PLATELET VOLUME 7.8 fL (7.4-11.0); MONOCYTES % (AUTO) 5.5 % (0.0-13.0); NEUTROPHILS # (AUTO) 14.6 x10^3/uL (2.2-4.8); NEUTROPHILS % (AUTO) 77.5 % (42.0-75.0); PLATELET COUNT 529 X10^3/uL (150.0-450.0); RED CELL DISTRIBUTION WIDTH 12.5 % (11.6-16.5)
[2024-08-15 20:30] LABS: ALANINE AMINOTRANSFERASE 77 Units/L (12-78); ALBUMIN 2.6 g/dL (3.4-5.0); ALKALINE PHOSPHATASE 119 Units/L (46-116); ASPARTATE AMINO TRANSFERASE 45 Units/L (15-37); BLOOD UREA NITROGEN 11 mg/dL (7-18); CALCIUM 10.7 mg/dL (8.5-10.1); CARBON DIOXIDE 32.5 mmol/L (21-32); CHLORIDE 97 mmol/L (98-107); COR CA(FOR HYPOALB) 11.8 mg/dL (8.5-10.1); CREATININE 0.91 mg/dL (0.55-1.02); GLUCOSE 102 mg/dL (65-99); MAGNESIUM 1.7 mg/dL (2.0-2.9); POTASSIUM 3.4 mmol/L (3.5-5.1); SODIUM 135 mmol/L (136-145); TOTAL PROTEIN 6.9 g/dL (6.4-8.2); eGFR NON BLACK RACES > 60 (>60)
[2024-08-15 20:54] LABS: PLATELET MORPHOLOGY COMMENT NORMAL (NORMAL)
[2024-08-15] MEDS ORDERED: NS 250 ML IV 250 ML IV ONE (21:14)
[2024-08-15] MEDS: LEVAQUIN TAB 500 MG PO SCH (21:22)
[2024-08-16 06:09] LABS: BASOPHILS # (AUTO) 0.1 X10^3/uL (0.0-0.1); BASOPHILS % (AUTO) 1.1 % (0.2-1.0); EOSINOPHILS # (AUTO) 0.1 x10^3/uL (0.0-0.2); EOSINOPHILS % (AUTO) 1.1 % (0.9-2.9); HEMATOCRIT 35.3 % (36.0-47.0); HEMOGLOBIN 11.6 g/dL (12.0-16.0); LYMPHOCYTES # (AUTO) 1.8 X10^3/uL (1.3-2.9); LYMPHOCYTES % (AUTO) 14.7 % (21.0-51.0); MEAN CORPUSCULAR HEMOGLOBIN 30.3 pg (27.0-34.0); MEAN CORPUSCULAR HGB CONC 32.8 g/dL (33.0-35.0); MEAN CORPUSCULAR VOLUME 92.2 fL (80.0-100.0); MEAN PLATELET VOLUME 8.4 fL (7.4-11.0); MONOCYTES # (AUTO) 0.8 x10^3/uL (0.3-0.8); MONOCYTES % (AUTO) 6.2 % (0.0-13.0); NEUTROPHILS # (AUTO) 9.6 x10^3/uL (2.2-4.8); NEUTROPHILS % (AUTO) 76.9 % (42.0-75.0); PLATELET COUNT 497 X10^3/uL (150.0-450.0); RED BLOOD COUNT 3.82 X10^6/uL (3.5-5.4); RED CELL DISTRIBUTION WIDTH 12.6 % (11.6-16.5); WHITE BLOOD COUNT 12.5 X10^3/uL (3.6-10.0)
[2024-08-16 06:42] LABS: ALANINE AMINOTRANSFERASE 69 Units/L (12-78); ALBUMIN 2.5 g/dL (3.4-5.0); ALKALINE PHOSPHATASE 117 Units/L (46-116); ASPARTATE AMINO TRANSFERASE 42 Units/L (15-37); BLOOD UREA NITROGEN 10 mg/dL (7-18); CALCIUM 10.6 mg/dL (8.5-10.1); CARBON DIOXIDE 31.1 mmol/L (21-32); CHLORIDE 99 mmol/L (98-107); COR CA(FOR HYPOALB) 11.8 mg/dL (8.5-10.1); CREATININE 0.89 mg/dL (0.55-1.02); GLUCOSE 99 mg/dL (65-99); MAGNESIUM 1.9 mg/dL (2.0-2.9); POTASSIUM 3.5 mmol/L (3.5-5.1); SODIUM 137 mmol/L (136-145); TOTAL PROTEIN 6.8 g/dL (6.4-8.2); eGFR NON BLACK RACES > 60 (>60)
[2024-08-16 06:46] LABS: PLATELET MORPHOLOGY COMMENT NORMAL (NORMAL)
[2024-08-16] MEDS ORDERED: CONSULT PHARMACY - POTASSIUM & MAGNESIUM XX SCH (07:00)
[2024-08-16] MEDS: MAG-OX TAB PO SCH (08:49)
[2024-08-16] MEDS: K-DUR TAB 20 MEQ PO SCH (08:49)
--- NOTE | 2024-08-16 11:02 | RAD ---
EXAM:Left clavicle two viewsHISTORY:History of left clavicle fractureCOMPARISON:NoneFINDINGS:No fracture, lytic, or blastic lesion is identified. AC joint is intact.IMPRESSION:No significant abnormality identifiedTHIS IS AN ELECTRONICALLY VERIFIED FINAL REPORT08/16/2024 10:58 AM - Electronically signed by Samir Queen MD
[2024-08-16] MEDS: NORVASC TAB 10 MG PO SCH (11:04)
--- NOTE | 2024-08-16 11:11 | RAD ---
EXAM:HUMERUS, LEFTHISTORY:humeral fracture;COMPARISON:No relevant studies are available for comparison at the time of interpretation.TECHNIQUE:2 view(s)FINDINGS:Proximal humeral fracture noted. The humerus lies low on the glenoid. This can be seen with dislocation or connective tissue laxity. No significant degenerative change. Soft tissues are unremarkable.IMPRESSION:1. Proximal humeral fracture2. Humerus rides low on the glenoid3. Recommend dedicated shoulder views if there is any clinical suspicion for dislocationTHIS IS AN ELECTRONICALLY VERIFIED FINAL REPORT08/16/2024 11:08 AM - Electronically signed by Tay Morgan MD
--- NOTE | 2024-08-16 12:33 | DR.CONSULT ---
CONSULT Consultation for Day of: Date: 08/16/24 Chief Complaint Chief Complaint: Left Shoulder pain Allergies Allergies Allergy/AdvReac Type Severity Reaction Status Date / Time No Known Allergies Allergy Verified 08/10/24 17:00 History of Present Illness History of Present Illness: Maddie is a 74 y/o F admitted to [facility] with the chief complaint of Left shoulder pain along with generalized weakness and frequent falls. She lives alone and was recently found on the floor of her home. She was transported to [facility] for further workup. Orthopedics was consulted regarding Left shoulder imaging findings. Medical history was obtained from medical records. Past Medical History Past Medical History: Hypertension Additional Medical History: VERTIGO, INSOMNIA Past Surgical History Surgical History: Hysterectomy, Ortho Surgery and Tonsillectomy Family History Family Medical History: Hypertension Social History Type of Tobacco Use: None Does any household member use tobacco: No Alcohol Use: None Drug Use: None Medications Home Medications: No Known Allergies Allergy (Verified 08/10/24 17:00) Physical Exam Vital Signs: Vital Signs Temperature 98 F Temperature 97.5 F Pulse Rate [Brachial] 92 Pulse Rate [Brachial] 93 Respiratory Rate 20 Respiratory Rate 20 Blood Pressure [Right Arm] 170/79 Blood Pressure [Right Arm] 135/65 O2 Sat by Pulse Oximetry 99 O2 Sat by Pulse Oximetry 98 Plan (1) Proximal humerus fracture: Status: Acute Narrative Support Text: I independently reviewed her xrays from [facility] hospital remotely (clavicle and humerus xrays) that demonstrate a displaced proximal humerus fracture in varus alignment and tuberosity comminution. There is no clavicle fracture present. Based on these findings I recommend conservative treatment of this injury. I recommend sling immobilization and NWB to the LUE along with ice and pain control per primary team. No surgical indications. She may follow up with me on an outpatient basis in 1-2 weeks to repeat xrays for further assessment. Thank you for the consult, please call me with any questions. Dr Powell Orthopedic Surgery [phone]
[2024-08-16] MEDS: LOVENOX INJ 40 MG SYR SC SCH (13:44)
[2024-08-16] MEDS: ZOFRAN INJ 4 MG VIAL IVP PRN (15:11)
[2024-08-16] MEDS: COREG TAB 6.25 MG PO SCH (20:47)
[2024-08-16] MEDS: DESYREL PO SCH (20:47)
[2024-08-17 06:21] LABS: EOSINOPHILS # (AUTO) 0.2 x10^3/uL (0.0-0.2); EOSINOPHILS % (AUTO) 1.4 % (0.9-2.9); MEAN CORPUSCULAR VOLUME 91.5 fL (80.0-100.0)
[2024-08-17 06:29] LABS: BASOPHILS # (AUTO) 0.1 X10^3/uL (0.0-0.1); BASOPHILS % (AUTO) 1.2 % (0.2-1.0); HEMATOCRIT 31.1 % (36.0-47.0); HEMOGLOBIN 10.5 g/dL (12.0-16.0); LYMPHOCYTES # (AUTO) 2.7 X10^3/uL (1.3-2.9); LYMPHOCYTES % (AUTO) 20.8 % (21.0-51.0); MEAN CORPUSCULAR HEMOGLOBIN 30.8 pg (27.0-34.0); MEAN CORPUSCULAR HGB CONC 33.7 g/dL (33.0-35.0); MEAN PLATELET VOLUME 8.3 fL (7.4-11.0); MONOCYTES # (AUTO) 0.5 x10^3/uL (0.3-0.8); MONOCYTES % (AUTO) 4.2 % (0.0-13.0); NEUTROPHILS # (AUTO) 9.3 x10^3/uL (2.2-4.8); NEUTROPHILS % (AUTO) 72.4 % (42.0-75.0); PLATELET COUNT 501 X10^3/uL (150.0-450.0); WHITE BLOOD COUNT 12.8 X10^3/uL (3.6-10.0)
[2024-08-17 06:40] LABS: ALANINE AMINOTRANSFERASE 50 Units/L (12-78); ALBUMIN 2.4 g/dL (3.4-5.0); ALKALINE PHOSPHATASE 110 Units/L (46-116); ASPARTATE AMINO TRANSFERASE 24 Units/L (15-37); BLOOD UREA NITROGEN 8 mg/dL (7-18); CALCIUM 10.4 mg/dL (8.5-10.1); CARBON DIOXIDE 32.4 mmol/L (21-32); CHLORIDE 101 mmol/L (98-107); COR CA(FOR HYPOALB) 11.7 mg/dL (8.5-10.1); CREATININE 0.89 mg/dL (0.55-1.02); GLUCOSE 105 mg/dL (65-99); SODIUM 137 mmol/L (136-145); eGFR NON BLACK RACES > 60 (>60)
[2024-08-17 07:04] LABS: PLATELET MORPHOLOGY COMMENT NORMAL (NORMAL)
[2024-08-17] MEDS: DIOVAN TAB 160 MG PO SCH (08:17)
[2024-08-17] MEDS: K-DUR TAB 20 MEQ PO SCH (08:17)
[2024-08-17] MEDS: HYDROCHLOROTHIAZIDE 12.5 MG CAP PO SCH (08:17)
--- NOTE | 2024-08-17 08:36 | DR.H&P ---
H&P History & Physical for Day of: H&P Date: 08/16/24 Chief Complaint Chief Complaint: left shoulder/arm pain weakness frequent falls uti History of Present Illness History of Present Illness: Patient is a 74 year old female admitted for left shoulder/arm pain, generalized weakness, frequent falls, and acute cystitis. Labs/imaging: WBC 12.5, hemoglobin 11.6, platelets 497, sodium 137, potassium 3.5, creatinine 0.89, glucose 99. Patient was recently discharged with similar problems but was unable to take care of herself at home and had frequent falls. He would be beneficial for her to receive more physical therapy and rehab. X- ray of the left arm does show displaced humerus fracture. Consulted orthopedics for further evaluation and recommendations. Otherwise we will restart home medications. Will also continue with ciprofloxacin for cystitis. PT OT. Continue closely monitor and follow-up labs/images. Past Medical History Past Medical History: Hypertension Additional Medical History: VERTIGO, INSOMNIA Past Surgical History Surgical History: Hysterectomy, Ortho Surgery and Tonsillectomy Family History Family Medical History: Hypertension Social History Type of Tobacco Use: None Does any household member use tobacco: No Alcohol Use: None Drug Use: None Medications Home Medications: Home Medications Medication Instructions Recorded Confirmed Type amlodipine 10 mg tablet 10 mg PO QDAY 08/10/24 08/16/24 History linaclotide 72 mcg capsule 72 mcg PO DAILY 08/10/24 08/16/24 History (Linzess) meclizine 25 mg tablet 25 mg PO TID PRN 08/10/24 08/16/24 History trazodone 50 mg tablet 50 mg PO QPM 08/10/24 08/16/24 History valsartan 160 1 tab PO QDAY 08/10/24 08/16/24 History mg-hydrochlorothiazide 12.5 mg tablet Allergies Allergies Allergy/AdvReac Type Severity Reaction Status Date / Time No Known Allergies Allergy Verified 08/10/24 17:00 Labs 08/17/24 05:23 08/17/24 05:23 Labs: Laboratory WBC 12.5 X10^3/uL (3.6-10.0) H 08/16/24 05:40 RBC 3.82 X10^6/uL (3.5-5.4) 08/16/24 05:40 Hgb 11.6 g/dL (12.0-16.0) L 08/16/24 05:40 Hct 35.3 % (36.0-47.0) L 08/16/24 05:40 MCV 92.2 fL (80.0-100.0) 08/16/24 05:40 MCH 30.3 pg (27.0-34.0) 08/16/24 05:40 MCHC 32.8 g/dL (33.0-35.0) L 08/16/24 05:40 RDW 12.6 % (11.6-16.5) 08/16/24 05:40 Plt Count 497 X10^3/uL (150.0-450.0) H 08/16/24 05:40 Plt Count Comment Increased (ADEQUATE) A 08/16/24 05:40 MPV 8.4 fL (7.4-11.0) 08/16/24 05:40 Neut % (Auto) 76.9 % (42.0-75.0) H 08/16/24 05:40 Lymph % (Auto) 14.7 % (21.0-51.0) L 08/16/24 05:40 [place] % (Auto) 6.2 % (0.0-13.0) 08/16/24 05:40 Eos % (Auto) 1.1 % (0.9-2.9) 08/16/24 05:40 Baso % (Auto) 1.1 % (0.2-1.0) H 08/16/24 05:40 Neut # (Auto) 9.6 x10^3/uL (2.2-4.8) H 08/16/24 05:40 Lymph # (Auto) 1.8 X10^3/uL (1.3-2.9) 08/16/24 05:40 [place] # (Auto) 0.8 x10^3/uL (0.3-0.8) 08/16/24 05:40 Eos # (Auto) 0.1 x10^3/uL (0.0-0.2) 08/16/24 05:40 Baso # (Auto) 0.1 X10^3/uL (0.0-0.1) 08/16/24 05:40 Absolute Nucleated RBC 0.1 /100WBC 08/16/24 05:40 Total Counted 100 08/16/24 05:40 Neutrophils % (Manual) 72 % (39-76) 08/16/24 05:40 Lymphocytes % (Manual) 18 % (13-43) 08/16/24 05:40 Monocytes % (Manual) 10 % (4-9) H 08/16/24 05:40 Eosinophils % (Manual) 1 % (0-6) 08/15/24 20:08 Plt Morphology Comment Normal (NORMAL) 08/16/24 05:40 RBC Morphology Normal (NORMAL) 08/16/24 05:40 Sodium 137 mmol/L (136-145) 08/16/24 05:40 Corrected Sodium TNP 08/16/24 05:40 Potassium 3.5 mmol/L (3.5-5.1) 08/16/24 05:40 Chloride 99 mmol/L (98-107) 08/16/24 05:40 Carbon Dioxide 31.1 mmol/L (21-32) 08/16/24 05:40 BUN 10 mg/dL (7-18) 08/16/24 05:40 Creatinine 0.89 mg/dL (0.55-1.02) 08/16/24 05:40 Est GFR (MDRD) Af Amer > 60 (>60) 08/16/24 05:40 Est GFR (MDRD) Non-Af > 60 (>60) 08/16/24 05:40 Glucose 99 mg/dL (65-99) 08/16/24 05:40 Calcium 10.6 mg/dL (8.5-10.1) H 08/16/24 05:40 Corrected Calcium 11.8 mg/dL (8.5-10.1) H 08/16/24 05:40 Magnesium 1.9 mg/dL (2.0-2.9) L 08/16/24 05:40 Total Bilirubin 0.50 mg/dL (0.2-1.0) 08/16/24 05:40 AST 42 Units/L (15-37) H 08/16/24 05:40 ALT 69 Units/L (12-78) 08/16/24 05:40 Alkaline Phosphatase 117 Units/L (46-116) H 08/16/24 05:40 Total Protein 6.8 g/dL (6.4-8.2) 08/16/24 05:40 Albumin 2.5 g/dL (3.4-5.0) L 08/16/24 05:40 Globulin 4.3 g/dL (2.5-4.5) 08/16/24 05:40 Albumin/Globulin Ratio 0.6 Ratio (1.1-2.1) L 08/16/24 05:40 Review of Systems Constitutional: Weakness Eyes: No Symptoms Reported ENT: No Symptoms Reported Respiratory: No Symptoms Reported Cardiovascular: No Symptoms Reported Gastrointestinal: No Symptoms Reported Genitourinary: No Symptoms Reported Musculoskeletal: Arm Pain (left ) Skin: No Symptoms Reported Neurological: No Symptoms Reported Physical Exam Vital Signs: Vital Signs Temperature 97.5 F Temperature 98.3 F Pulse Rate [Brachial] 93 Pulse Rate [Brachial] 93 Respiratory Rate 20 Respiratory Rate 16 Blood Pressure [Right Arm] 135/65 Blood Pressure [Right Arm] 138/65 O2 Sat by Pulse Oximetry 98 O2 Sat by Pulse Oximetry 98 Oriented: Normal Eyes: Normal Ear: Normal Nose: Normal Throat: Normal Respiratory: Clear Throughout Cardiovascular: Normal : Normal Auscultation: Bowel Sounds: Normal Palpation: Normal Tenderness: Normal Skin: Decreased Turgur Musculoskeletal: Left, Shoulder and Arm (pain) Psychiatric: Normal Mood Description: Calm and Appropriate Affect: Normal Speech Pattern: Clear and Appropriate Assessment/Plan (1) Proximal humerus fracture: Qualifiers: Encounter type: initial encounter Fracture type: closed Fracture morphology: unspecified fracture morphology Laterality: left Qualified Code(s): S42.202A - Unspecified fracture of upper end of left humerus, initial encounter for closed fracture Status: Acute Plan: Consult ortho-Dr Powell (2) Recurrent falls: Status: Acute Plan: PT/OT (3) Generalized weakness: Status: Acute (4) UTI (urinary tract infection): Qualifiers: Urinary tract infection type: acute cystitis Hematuria presence: without hematuria Qualified Code(s): N30.00 - Acute cystitis without hematuria Status: Acute Plan: PO ciprofloxacin Review H&P Reviewed: Yes Patient was examined?: Yes
[2024-08-17] MEDS ORDERED: VALSARTAN HYDROCHLOROTHIAZIDE PO SCH (09:00)
--- NOTE | 2024-08-17 11:00 | PCM.PROG ---
Progress Note Progress Note for Day of Date of Exam: 08/17/24 Subjective Subjective: Patient seen at bedside, no acute events overnight. She is currently admitted for generalized weakness and humerus fracture. She has been working with physical therapy. CM working on discharge planning, possible swing bed. Labs/imaging reviewed: -WBC 12.8 hemoglobin 10.5 potassium 4 creatinine 0.89 -Left shoulder x-ray: Proximal humerus fracture Plan: Follow Ortho recommendations, continue sling and pain control. Continue p.o. antibiotics from previous UTI. Continue home medications. Replace electrolytes as per protocol. Physical therapy as tolerated. CM working on discharge planning, possible swing bed status. Monitor a.m. labs and imaging. Past Medical Family Social History Allergies: Allergies No Known Allergies Allergy (Verified 08/10/24 17:00) Vital Signs and I&O's Vital Signs: Vital Signs Temperature 97.3 F Temperature 99.0 F Pulse Rate [Brachial] 92 Pulse Rate [Brachial] 89 Respiratory Rate 18 Respiratory Rate 18 Blood Pressure [Right Arm] 127/66 Blood Pressure [Right Arm] 123/61 O2 Sat by Pulse Oximetry 96 O2 Sat by Pulse Oximetry 97 Intake and Output: Intake & Output 08/14/24 08/15/24 08/16/24 08/17/24 23:59 23:59 23:59 23:59 Intake Total 400 / 400 710 / 710 Balance 400 / 400 710 / 710 Physical Exam Oriented: Normal Eyes: Normal Ear: Normal Nose: Normal Throat: Normal Respiratory: Normal Cardiovascular: Normal Auscultation: Bowel Sounds: Normal Palpation: Normal Tenderness: Normal Skin: Decreased Turgur Musculoskeletal: Left, Shoulder and Arm (pain) Psychiatric: Normal Mood Description: Calm and Appropriate Affect: Normal Speech Pattern: Clear and Appropriate Laboratory and Diagnostics 08/17/24 05:23 08/17/24 05:23 Labs: Laboratory WBC 12.8 X10^3/uL (3.6-10.0) H 08/17/24 05:23 RBC 3.40 X10^6/uL (3.5-5.4) L 08/17/24 05:23 Hgb 10.5 g/dL (12.0-16.0) L 08/17/24 05:23 Hct 31.1 % (36.0-47.0) L 08/17/24 05:23 MCV 91.5 fL (80.0-100.0) 08/17/24 05:23 MCH 30.8 pg (27.0-34.0) 08/17/24 05:23 MCHC 33.7 g/dL (33.0-35.0) 08/17/24 05:23 RDW 13.0 % (11.6-16.5) 08/17/24 05:23 Plt Count 501 X10^3/uL (150.0-450.0) H 08/17/24 05:23 Plt Count Comment Increased (ADEQUATE) A 08/17/24 05:23 MPV 8.3 fL (7.4-11.0) 08/17/24 05:23 Neut % (Auto) 72.4 % (42.0-75.0) 08/17/24 05:23 Lymph % (Auto) 20.8 % (21.0-51.0) L 08/17/24 05:23 [place] % (Auto) 4.2 % (0.0-13.0) 08/17/24 05:23 Eos % (Auto) 1.4 % (0.9-2.9) 08/17/24 05:23 Baso % (Auto) 1.2 % (0.2-1.0) H 08/17/24 05:23 Neut # (Auto) 9.3 x10^3/uL (2.2-4.8) H 08/17/24 05:23 Lymph # (Auto) 2.7 X10^3/uL (1.3-2.9) 08/17/24 05:23 [place] # (Auto) 0.5 x10^3/uL (0.3-0.8) 08/17/24 05:23 Eos # (Auto) 0.2 x10^3/uL (0.0-0.2) 08/17/24 05:23 Baso # (Auto) 0.1 X10^3/uL (0.0-0.1) 08/17/24 05:23 Absolute Nucleated RBC 0.0 /100WBC 08/17/24 05:23 Total Counted 100 08/17/24 05:23 Neutrophils % (Manual) 74 % (39-76) 08/17/24 05:23 Lymphocytes % (Manual) 19 % (13-43) 08/17/24 05:23 Monocytes % (Manual) 6 % (4-9) 08/17/24 05:23 Eosinophils % (Manual) 1 % (0-6) 08/17/24 05:23 Plt Morphology Comment Normal (NORMAL) 08/17/24 05:23 RBC Morphology Normal (NORMAL) 08/17/24 05:23 Sodium 137 mmol/L (136-145) 08/17/24 05:23 Corrected Sodium TNP 08/17/24 05:23 Potassium 4.0 mmol/L (3.5-5.1) 08/17/24 05:23 Chloride 101 mmol/L (98-107) 08/17/24 05:23 Carbon Dioxide 32.4 mmol/L (21-32) H 08/17/24 05:23 BUN 8 mg/dL (7-18) 08/17/24 05:23 Creatinine 0.89 mg/dL (0.55-1.02) 08/17/24 05:23 Est GFR (MDRD) Af Amer > 60 (>60) 08/17/24 05:23 Est GFR (MDRD) Non-Af > 60 (>60) 08/17/24 05:23 Glucose 105 mg/dL (65-99) H 08/17/24 05:23 Calcium 10.4 mg/dL (8.5-10.1) H 08/17/24 05:23 Corrected Calcium 11.7 mg/dL (8.5-10.1) H 08/17/24 05:23 Magnesium 1.9 mg/dL (2.0-2.9) L 08/16/24 05:40 Total Bilirubin 0.40 mg/dL (0.2-1.0) 08/17/24 05:23 AST 24 Units/L (15-37) 08/17/24 05:23 ALT 50 Units/L (12-78) 08/17/24 05:23 Alkaline Phosphatase 110 Units/L (46-116) 08/17/24 05:23 Total Protein 6.0 g/dL (6.4-8.2) L 08/17/24 05:23 Albumin 2.4 g/dL (3.4-5.0) L 08/17/24 05:23 Globulin 3.6 g/dL (2.5-4.5) 08/17/24 05:23 Albumin/Globulin Ratio 0.7 Ratio (1.1-2.1) L 08/17/24 05:23 Plan (1) Proximal humerus fracture: Status: Acute Qualifiers: Encounter type: initial encounter Fracture type: closed Fracture morphology: unspecified fracture morphology Laterality: left Qualified Code(s): S42.202A - Unspecified fracture of upper end of left humerus, initial encounter for closed fracture (2) Recurrent falls: Status: Chronic Plan: PT/OT (3) Generalized weakness: Status: Acute (4) UTI (urinary tract infection): Status: Acute Qualifiers: Urinary tract infection type: acute cystitis Hematuria presence: without hematuria Qualified Code(s): N30.00 - Acute cystitis without hematuria (5) HTN (hypertension): Status: Chronic Qualifiers: Hypertension type: primary hypertension Qualified Code(s): I10 - Essential (primary) hypertension
[2024-08-17] MEDS: MAALOX or MYLANTA PO PRN (16:24)
[2024-08-18 06:21] LABS: BASOPHILS # (AUTO) 0.2 X10^3/uL (0.0-0.1); BASOPHILS % (AUTO) 1.4 % (0.2-1.0); EOSINOPHILS # (AUTO) 0.2 x10^3/uL (0.0-0.2); EOSINOPHILS % (AUTO) 1.6 % (0.9-2.9); HEMATOCRIT 32.6 % (36.0-47.0); HEMOGLOBIN 10.8 g/dL (12.0-16.0); LYMPHOCYTES # (AUTO) 2.2 X10^3/uL (1.3-2.9); LYMPHOCYTES % (AUTO) 17.6 % (21.0-51.0); MEAN CORPUSCULAR HEMOGLOBIN 30.5 pg (27.0-34.0); MEAN CORPUSCULAR HGB CONC 33.2 g/dL (33.0-35.0); MEAN PLATELET VOLUME 8.1 fL (7.4-11.0); MONOCYTES # (AUTO) 0.7 x10^3/uL (0.3-0.8); MONOCYTES % (AUTO) 5.8 % (0.0-13.0); NEUTROPHILS # (AUTO) 9.1 x10^3/uL (2.2-4.8); NEUTROPHILS % (AUTO) 73.6 % (42.0-75.0); PLATELET COUNT 527 X10^3/uL (150.0-450.0); RED BLOOD COUNT 3.55 X10^6/uL (3.5-5.4); RED CELL DISTRIBUTION WIDTH 12.9 % (11.6-16.5); WHITE BLOOD COUNT 12.4 X10^3/uL (3.6-10.0)
[2024-08-18 06:23] LABS: ALANINE AMINOTRANSFERASE 43 Units/L (12-78); ALBUMIN 2.5 g/dL (3.4-5.0); ALKALINE PHOSPHATASE 119 Units/L (46-116); ASPARTATE AMINO TRANSFERASE 20 Units/L (15-37); BLOOD UREA NITROGEN 7 mg/dL (7-18); CALCIUM 10.3 mg/dL (8.5-10.1); CARBON DIOXIDE 32.1 mmol/L (21-32); CHLORIDE 99 mmol/L (98-107); COR CA(FOR HYPOALB) 11.5 mg/dL (8.5-10.1); CREATININE 0.91 mg/dL (0.55-1.02); GLUCOSE 108 mg/dL (65-99); MAGNESIUM 1.9 mg/dL (2.0-2.9); POTASSIUM 4.1 mmol/L (3.5-5.1); SODIUM 137 mmol/L (136-145); TOTAL PROTEIN 6.3 g/dL (6.4-8.2); eGFR NON BLACK RACES > 60 (>60)
[2024-08-18] MEDS: MILK OF MAGNESIA PO SCH (08:27)
--- NOTE | 2024-08-18 10:42 | PCM.PROG ---
Progress Note Progress Note for Day of Date of Exam: 08/18/24 Subjective Subjective: Patient seen at bedside, no acute events overnight. She is feeling better, has been ambulating in the room. She is currently admitted for generalized weakness and humerus fracture. She has been working with physical therapy. CM working on discharge planning, possible swing bed. She did have constipation, had a BM yesterday and today after taking milk of mag. Labs/imaging reviewed: -WBC 12.4 hemoglobin 10.8 potassium 4.1 creatinine 0.91 -Left shoulder x-ray: Proximal humerus fracture Plan: Follow Ortho recommendations, continue sling and pain control. Continue p.o. antibiotics from previous UTI. Continue home medications. Replace electrolytes as per protocol. Physical therapy as tolerated. CM working on discharge planning, possible swing bed status. Monitor a.m. labs and imaging. Past Medical Family Social History Allergies: Allergies No Known Allergies Allergy (Verified 08/10/24 17:00) Vital Signs and I&O's Vital Signs: Vital Signs Temperature 97.7 F Temperature 98.4 F Pulse Rate [Brachial] 93 Pulse Rate [Brachial] 87 Respiratory Rate 17 Respiratory Rate 18 Blood Pressure [Right Arm] 120/60 Blood Pressure [Right Arm] 114/56 O2 Sat by Pulse Oximetry 95 O2 Sat by Pulse Oximetry 95 Intake and Output: Intake & Output 08/15/24 08/16/24 08/17/24 08/18/24 23:59 23:59 23:59 23:59 Intake Total 400 / 400 710 / 710 1500 / 1500 10 / 10 Balance 400 / 400 710 / 710 1500 / 1500 10 / 10 Physical Exam Oriented: Normal Eyes: Normal Ear: Normal Nose: Normal Throat: Normal Respiratory: Normal Cardiovascular: Normal : Normal Auscultation: Bowel Sounds: Normal Palpation: Normal Tenderness: Normal Skin: Decreased Turgur Musculoskeletal: Left, Shoulder and Arm (pain) Psychiatric: Normal Mood Description: Calm and Appropriate Affect: Normal Speech Pattern: Clear and Appropriate Laboratory and Diagnostics 08/18/24 05:22 08/18/24 05:22 Labs: 08/16/24 13:44 Blood Blood Culture - Preliminary 08/16/24 13:26 Blood Blood Culture - Preliminary Laboratory WBC 12.4 X10^3/uL (3.6-10.0) H 08/18/24 05:22 RBC 3.55 X10^6/uL (3.5-5.4) 08/18/24 05:22 Hgb 10.8 g/dL (12.0-16.0) L 08/18/24 05:22 Hct 32.6 % (36.0-47.0) L 08/18/24 05:22 MCV 92.0 fL (80.0-100.0) 08/18/24 05:22 MCH 30.5 pg (27.0-34.0) 08/18/24 05:22 MCHC 33.2 g/dL (33.0-35.0) 08/18/24 05:22 RDW 12.9 % (11.6-16.5) 08/18/24 05:22 Plt Count 527 X10^3/uL (150.0-450.0) H 08/18/24 05:22 Plt Count Comment Increased (ADEQUATE) A 08/17/24 05:23 MPV 8.1 fL (7.4-11.0) 08/18/24 05:22 Neut % (Auto) 73.6 % (42.0-75.0) 08/18/24 05:22 Lymph % (Auto) 17.6 % (21.0-51.0) L 08/18/24 05:22 Saline % (Auto) 5.8 % (0.0-13.0) 08/18/24 05:22 Eos % (Auto) 1.6 % (0.9-2.9) 08/18/24 05:22 Baso % (Auto) 1.4 % (0.2-1.0) H 08/18/24 05:22 Neut # (Auto) 9.1 x10^3/uL (2.2-4.8) H 08/18/24 05:22 Lymph # (Auto) 2.2 X10^3/uL (1.3-2.9) 08/18/24 05:22 Saline # (Auto) 0.7 x10^3/uL (0.3-0.8) 08/18/24 05:22 Eos # (Auto) 0.2 x10^3/uL (0.0-0.2) 08/18/24 05:22 Baso # (Auto) 0.2 X10^3/uL (0.0-0.1) H 08/18/24 05:22 Absolute Nucleated RBC 0.0 /100WBC 08/18/24 05:22 Total Counted 100 08/17/24 05:23 Neutrophils % (Manual) 74 % (39-76) 08/17/24 05:23 Lymphocytes % (Manual) 19 % (13-43) 08/17/24 05:23 Monocytes % (Manual) 6 % (4-9) 08/17/24 05:23 Eosinophils % (Manual) 1 % (0-6) 08/17/24 05:23 Plt Morphology Comment Normal (NORMAL) 08/17/24 05:23 RBC Morphology Normal (NORMAL) 08/17/24 05:23 Sodium 137 mmol/L (136-145) 08/18/24 05:22 Corrected Sodium TNP 08/18/24 05:22 Potassium 4.1 mmol/L (3.5-5.1) 08/18/24 05:22 Chloride 99 mmol/L (98-107) 08/18/24 05:22 Carbon Dioxide 32.1 mmol/L (21-32) H 08/18/24 05:22 BUN 7 mg/dL (7-18) 08/18/24 05:22 Creatinine 0.91 mg/dL (0.55-1.02) 08/18/24 05:22 Est GFR (MDRD) Af Amer > 60 (>60) 08/18/24 05:22 Est GFR (MDRD) Non-Af > 60 (>60) 08/18/24 05:22 Glucose 108 mg/dL (65-99) H 08/18/24 05:22 POC Glucose (mg/dL) 106 mg/dL (65-99) H 08/18/24 05:10 Calcium 10.3 mg/dL (8.5-10.1) H 08/18/24 05:22 Corrected Calcium 11.5 mg/dL (8.5-10.1) H 08/18/24 05:22 Magnesium 1.9 mg/dL (2.0-2.9) L 08/18/24 05:22 Total Bilirubin 0.30 mg/dL (0.2-1.0) 08/18/24 05:22 AST 20 Units/L (15-37) 08/18/24 05:22 ALT 43 Units/L (12-78) 08/18/24 05:22 Alkaline Phosphatase 119 Units/L (46-116) H 08/18/24 05:22 Total Protein 6.3 g/dL (6.4-8.2) L 08/18/24 05:22 Albumin 2.5 g/dL (3.4-5.0) L 08/18/24 05:22 Globulin 3.8 g/dL (2.5-4.5) 08/18/24 05:22 Albumin/Globulin Ratio 0.7 Ratio (1.1-2.1) L 08/18/24 05:22 Plan (1) Proximal humerus fracture: Status: Acute Qualifiers: Encounter type: initial encounter Fracture type: closed Fracture morphology: unspecified fracture morphology Laterality: left Qualified Code(s): S42.202A - Unspecified fracture of upper end of left humerus, initial encounter for closed fracture (2) Recurrent falls: Status: Chronic Plan: PT/OT (3) Generalized weakness: Status: Acute (4) UTI (urinary tract infection): Status: Chronic Qualifiers: Urinary tract infection type: acute cystitis Hematuria presence: without hematuria Qualified Code(s): N30.00 - Acute cystitis without hematuria (5) HTN (hypertension): Status: Chronic Qualifiers: Hypertension type: primary hypertension Qualified Code(s): I10 - Essential (primary) hypertension
[2024-08-18] MEDS: TYLENOL 325 MG TAB PO PRN (13:57)
[2024-08-18 16:58] VITALS: RESP 18
[2024-08-18] MEDS: PATIENT'S HOME MEDICATION (Linaclotide [Linzess] 72 mcg capsule) PO SCH (19:25)
[2024-08-18] MEDS: COLACE CAP 100 MG PO SCH (20:36)
[2024-08-19 05:49] LABS: BASOPHILS # (AUTO) 0.2 X10^3/uL (0.0-0.1); BASOPHILS % (AUTO) 1.2 % (0.2-1.0); EOSINOPHILS # (AUTO) 0.2 x10^3/uL (0.0-0.2); EOSINOPHILS % (AUTO) 1.8 % (0.9-2.9); HEMATOCRIT 32.6 % (36.0-47.0); HEMOGLOBIN 10.9 g/dL (12.0-16.0); LYMPHOCYTES % (AUTO) 16.3 % (21.0-51.0); MEAN CORPUSCULAR HEMOGLOBIN 30.7 pg (27.0-34.0); MEAN CORPUSCULAR HGB CONC 33.4 g/dL (33.0-35.0); MEAN CORPUSCULAR VOLUME 91.8 fL (80.0-100.0); MEAN PLATELET VOLUME 7.8 fL (7.4-11.0); MONOCYTES # (AUTO) 0.7 x10^3/uL (0.3-0.8); MONOCYTES % (AUTO) 5.7 % (0.0-13.0); NEUTROPHILS # (AUTO) 9.2 x10^3/uL (2.2-4.8); PLATELET COUNT 522 X10^3/uL (150.0-450.0); RED BLOOD COUNT 3.56 X10^6/uL (3.5-5.4); RED CELL DISTRIBUTION WIDTH 12.6 % (11.6-16.5); WHITE BLOOD COUNT 12.3 X10^3/uL (3.6-10.0)
[2024-08-19 06:05] LABS: ALANINE AMINOTRANSFERASE 39 Units/L (12-78); ALBUMIN 2.5 g/dL (3.4-5.0); ALKALINE PHOSPHATASE 124 Units/L (46-116); ASPARTATE AMINO TRANSFERASE 20 Units/L (15-37); BLOOD UREA NITROGEN 8 mg/dL (7-18); CALCIUM 10.4 mg/dL (8.5-10.1); CARBON DIOXIDE 29.8 mmol/L (21-32); CHLORIDE 100 mmol/L (98-107); COR CA(FOR HYPOALB) 11.6 mg/dL (8.5-10.1); COR NA(FOR HYPERGLY) 137 mmol/L (136-145); CREATININE 0.87 mg/dL (0.55-1.02); GLUCOSE 118 mg/dL (65-99); MAGNESIUM 1.9 mg/dL (2.0-2.9); POTASSIUM 4.2 mmol/L (3.5-5.1); SODIUM 137 mmol/L (136-145); TOTAL PROTEIN 6.3 g/dL (6.4-8.2); eGFR NON BLACK RACES > 60 (>60)
[2024-08-19 07:56] VITALS: BP 121/68; PULSE 97; TEMP 97.2; O2SAT 98
--- NOTE | 2024-08-20 10:47 | W.DIS.FURT ---
Summary of Discharge Discharge Summary of Date Date of Exam: 08/19/24 Admission Date Date of Admission: 08/16/24 Admission Diagnosis Hospital Course: Patient is a 74 year old female admitted for left shoulder/arm pain, generalized weakness, frequent falls, and acute cystitis. Labs/imaging: WBC 12.5, hemoglobin 11.6, platelets 497, sodium 137, potassium 3.5, creatinine 0.89, glucose 99. Patient was recently discharged with similar problems but was unable to take care of herself at home and had frequent falls. She was admitted for further management. X-ray showed left humerus fracture. Ortho was consulted and recommended to continue sling and follow-up outpatient in 1 to 2 weeks. Her labs were monitored daily and electrolytes replace as needed. Physical therapy evaluated the patient and recommended SNF placement. Patient preferred to do swing bed here. Patient was stable to be transition to swing bed. Vital Signs: Vital Signs (72 hours) 08/16/24 12:00 08/16/24 16:00 08/16/24 19:41 Temperature 98 F 98.2 F 98.5 F Pulse Rate [Brachial] 92 H 102 H 101 H Respiratory Rate 20 20 18 Blood Pressure [Right Arm] 170/79 118/70 137/70 O2 Sat by Pulse Oximetry 99 98 97 Oxygen Delivery Method 08/16/24 19:00 08/16/24 23:34 08/16/24 23:37 Temperature 99.0 F 99.0 F Pulse Rate [Brachial] 94 H 94 H Respiratory Rate 18 18 Blood Pressure [Right Arm] 117/58 117/58 O2 Sat by Pulse Oximetry 94 L 94 L Oxygen Delivery Method Room Air 08/17/24 03:54 08/17/24 07:00 08/17/24 08:00 Temperature 99.0 F 97.3 F L Pulse Rate [Brachial] 89 92 H Respiratory Rate 18 18 Blood Pressure [Right Arm] 123/61 127/66 O2 Sat by Pulse Oximetry 97 96 Oxygen Delivery Method Room Air Room Air 08/17/24 12:00 08/17/24 16:00 08/17/24 19:00 Temperature 97.3 F L 97.7 F Pulse Rate [Brachial] 84 106 H Respiratory Rate 18 20 Blood Pressure [Right Arm] 141/82 167/81 O2 Sat by Pulse Oximetry 97 97 Oxygen Delivery Method Room Air Room Air Room Air 08/17/24 19:16 08/17/24 23:40 08/18/24 03:28 Temperature 98.2 F 98.6 F 98.4 F Pulse Rate [Brachial] 103 H 91 H 87 Respiratory Rate 18 18 18 Blood Pressure [Right Arm] 140/73 130/63 114/56 O2 Sat by Pulse Oximetry 98 93 L 95 Oxygen Delivery Method 08/18/24 08:00 08/18/24 13:57 08/18/24 07:00 Temperature 97.7 F Pulse Rate [Brachial] 93 H Respiratory Rate 17 20 Blood Pressure [Right Arm] 120/60 O2 Sat by Pulse Oximetry 95 Oxygen Delivery Method Room Air 08/18/24 12:00 08/18/24 14:57 08/18/24 16:00 Temperature 98.1 F 97.3 F L Pulse Rate [Brachial] 92 H 92 H Respiratory Rate 20 20 18 Blood Pressure [Right Arm] 128/78 115/67 O2 Sat by Pulse Oximetry 98 97 Oxygen Delivery Method 08/18/24 19:00 08/18/24 20:00 08/18/24 23:35 Temperature 98.4 F 98.1 F Pulse Rate [Brachial] 94 H 88 Respiratory Rate 18 18 Blood Pressure [Right Arm] 129/73 128/58 O2 Sat by Pulse Oximetry 96 91 L Oxygen Delivery Method Room Air 08/19/24 04:00 08/19/24 07:55 08/19/24 07:00 Temperature 98.0 F 97.2 F L Pulse Rate [Brachial] 88 97 H Respiratory Rate 18 18 Blood Pressure [Right Arm] 128/60 121/68 O2 Sat by Pulse Oximetry 90 L 98 Oxygen Delivery Method Room Air Labs: Laboratory Last Values WBC 12.3 X10^3/uL (3.6-10.0) H 08/19/24 05:23 RBC 3.56 X10^6/uL (3.5-5.4) 08/19/24 05:23 Hgb 10.9 g/dL (12.0-16.0) L 08/19/24 05:23 Hct 32.6 % (36.0-47.0) L 08/19/24 05:23 MCV 91.8 fL (80.0-100.0) 08/19/24 05:23 MCH 30.7 pg (27.0-34.0) 08/19/24 05:23 MCHC 33.4 g/dL (33.0-35.0) 08/19/24 05:23 RDW 12.6 % (11.6-16.5) 08/19/24 05:23 Plt Count 522 X10^3/uL (150.0-450.0) H 08/19/24 05:23 Plt Count Comment Increased (ADEQUATE) A 08/17/24 05:23 MPV 7.8 fL (7.4-11.0) 08/19/24 05:23 Neut % (Auto) 75.0 % (42.0-75.0) 08/19/24 05:23 Lymph % (Auto) 16.3 % (21.0-51.0) L 08/19/24 05:23 [place] % (Auto) 5.7 % (0.0-13.0) 08/19/24 05:23 Eos % (Auto) 1.8 % (0.9-2.9) 08/19/24 05:23 Baso % (Auto) 1.2 % (0.2-1.0) H 08/19/24 05:23 Neut # (Auto) 9.2 x10^3/uL (2.2-4.8) H 08/19/24 05:23 Lymph # (Auto) 2.0 X10^3/uL (1.3-2.9) 08/19/24 05:23 [place] # (Auto) 0.7 x10^3/uL (0.3-0.8) 08/19/24 05:23 Eos # (Auto) 0.2 x10^3/uL (0.0-0.2) 08/19/24 05:23 Baso # (Auto) 0.2 X10^3/uL (0.0-0.1) H 08/19/24 05:23 Absolute Nucleated RBC 0.0 /100WBC 08/19/24 05:23 Total Counted 100 08/17/24 05:23 Neutrophils % (Manual) 74 % (39-76) 08/17/24 05:23 Lymphocytes % (Manual) 19 % (13-43) 08/17/24 05:23 Monocytes % (Manual) 6 % (4-9) 08/17/24 05:23 Eosinophils % (Manual) 1 % (0-6) 08/17/24 05:23 Plt Morphology Comment Normal (NORMAL) 08/17/24 05:23 RBC Morphology Normal (NORMAL) 08/17/24 05:23 Sodium 137 mmol/L (136-145) 08/19/24 05:23 Corrected Sodium 137 mmol/L (136-145) 08/19/24 05:23 Potassium 4.2 mmol/L (3.5-5.1) 08/19/24 05:23 Chloride 100 mmol/L (98-107) 08/19/24 05:23 Carbon Dioxide 29.8 mmol/L (21-32) 08/19/24 05:23 BUN 8 mg/dL (7-18) 08/19/24 05:23 Creatinine 0.87 mg/dL (0.55-1.02) 08/19/24 05:23 Est GFR (MDRD) Af Amer > 60 (>60) 08/19/24 05:23 Est GFR (MDRD) Non-Af > 60 (>60) 08/19/24 05:23 Glucose 118 mg/dL (65-99) H 08/19/24 05:23 POC Glucose (mg/dL) 106 mg/dL (65-99) H 08/18/24 05:10 Calcium 10.4 mg/dL (8.5-10.1) H 08/19/24 05:23 Corrected Calcium 11.6 mg/dL (8.5-10.1) H 08/19/24 05:23 Magnesium 1.9 mg/dL (2.0-2.9) L 08/19/24 05:23 Total Bilirubin 0.20 mg/dL (0.2-1.0) 08/19/24 05:23 AST 20 Units/L (15-37) 08/19/24 05:23 ALT 39 Units/L (12-78) 08/19/24 05:23 Alkaline Phosphatase 124 Units/L (46-116) H 08/19/24 05:23 Total Protein 6.3 g/dL (6.4-8.2) L 08/19/24 05:23 Albumin 2.5 g/dL (3.4-5.0) L 08/19/24 05:23 Globulin 3.8 g/dL (2.5-4.5) 08/19/24 05:23 Albumin/Globulin Ratio 0.7 Ratio (1.1-2.1) L 08/19/24 05:23 Reason For Visit: UTI, GENERALIZED WEAKNESS, Discharge Diagnosis All Active Problems (Updated 08/18/24 @ 10:41 by Shobha Wilder MD) Proximal humerus fracture (Acute) HTN (hypertension) (Chronic) Pulmonary edema (Acute) Hypomagnesemia (Acute) Clavicle fracture (Acute) Recurrent falls (Chronic) Generalized weakness (Acute) UTI (urinary tract infection) (Chronic) Plan of Treatment: Continue with present treatment and follow up plan. Pt is to keep follow up appointment as instructed and take medications as ordered. Discharge Medications Discharge Medications: No Known Allergies Allergy (Verified 08/10/24 17:00) Discharge Disposition Discharge Disposition: swing bed [facility] Discharge Condition: stable Discharge Plan Discharge Plan Hospital Course: Patient is a 74 year old female admitted for left shoulder/arm pain, generalized weakness, frequent falls, and acute cystitis. Labs/imaging: WBC 12.5, hemoglobin 11.6, platelets 497, sodium 137, potassium 3.5, creatinine 0.89, glucose 99. Patient was recently discharged with similar problems but was unable to take care of herself at home and had frequent falls. She was admitted for further management. X-ray showed left humerus fracture. Ortho was co nsulted and recommended to continue sling and follow-up outpatient in 1 to 2 weeks. Her labs were monitored daily and electrolytes replace as needed. Physical therapy evaluated the patient and recommended SNF placement. Patient preferred to do swing bed here. Patient was stable to be transition to swing bed. Patient Disposition: 72 DISCH W/I HOSP TO SWING BD Condition: Stable Health Concerns: Post Hospitalization: new medications and changes needed to prevent readmission or further decline. Pt educated and given instructions on all concerns. Care Plan Goals: Problem: Pain/Alteration in Comfort Goal: Improve/ Resolve Pain; Achieve Pain Tolerance Instructions: Take pain medications as prescribed. Contact your primary care provider if your pain is unrelieved or worsens. Follow up with primary care provider as directed. Plan of Treatment: Continue with present treatment and follow up plan. Pt is to keep follow up appointment as instructed and take medications as ordered. Prescription drug monitoring program results: PDMP reviewed and no concerns identified Prescriptions: New hydrochlorothiazide 12.5 mg Capsule 12.5 mg PO DAILY Qty: 30 0RF valsartan 160 mg Tablet 160 mg PO DAILY 30 Days Qty: 30 0RF Continued trazodone 50 mg tablet 50 mg PO QPM meclizine 25 mg tablet 25 mg PO TID PRN amlodipine 10 mg tablet 10 mg PO QDAY Linzess 72 mcg capsule 72 mcg PO DAILY Patient Comments: [NO ORIGINAL SIG] carvedilol 6.25 mg Tablet 6.25 mg PO BID 30 Days Qty: 60 0RF potassium chloride [Klor-Con M20] 20 mEq Tablet,Er Particles/Crystals 20 meq PO DAILY 5 Days Qty: 5 0RF Discontinued valsartan-hydrochlorothiazide 160-12.5 mg tablet 1 tab PO QDAY levofloxacin 500 mg tablet 500 mg PO QDAY 5 Days Qty: 5 0RF Patient Comments: Prescribed 08/13/24 times 5 doses Follow ups/Referrals Follow ups/Referrals: Jann Vargas [Primary Care Provider] - 1 WEEK Instructions Stand Alone Forms: Excuse From Work or School, Find Help Web Site, Post Hospital Follow Up Care
== END 2024-08-19 09:59 | disposition swing bed (61) ==
LOC: MED/SURG
PROVIDERS: ADMIT Internal Medicine; ATTEND Internal Medicine

== ENCOUNTER 2024-08-19 10:00 | Inpatient (IN) ==
[2024-08-19] MEDS ORDERED: MAALOX or MYLANTA PO PRN (11:01)
[2024-08-19] MEDS ORDERED: ZOFRAN INJ 4 MG VIAL IVP PRN (11:01)
--- NOTE | 2024-08-19 15:33 | PT/OTEVAL ---
PT/OT OBJECTIVES - HISTORY Prescription: PT Consult Diagnosis: UTI, Weakness Precautions: Fall Risk, NWB LUE in Sling PMH: Vertigo, HTN, UTI, Hysterectomy, Cholecystectomy, Ortho Sx, Tonsillectomy Prior Level of Function: Independent Other: Prior admission- pt was reported to have a L clavicle fracture and was wearing a sling. She states that she has since removed the sling due to UE swelling. New imaging completed on this hospital admission and does not appear to show a clavicle fracture but is showing a proximal humerus fracture- ortho consult recommending conservative measures of sling and NWB. History of Present Illness: Ms. Dooley is a 74 year old female who has had 2 recent hospitalization due to weakness and falls and now with a UTI. Pt was initially admitted to hospital on 08/10/2024 and PT recommended rehab but pt declined to go and went home where she continued to decline and had more falls and was again admitted to hospital on 08/15/2024 with diagnosis of UTI and weakness. Pt was found to have a proximal humeral fracture to LUE and no evidence of a clavicle fracture and per ortho recommendations pt to be NWB in sling. Pt was then agreeable to rehab placement and transitioned to swing bed on the morning of 08/19/2024. - COGNITION Mental Status: Alert, Oriented, Name, Date, Place Communication Status: Verbal Ability to Follow Directions: 1 Step - PAIN Left Arm Pain Scale: Discomfort Comments: "Mostly my hand and the swelling" - BED MOBILITY Rolling: Supervision - TRANSFERS Supine to Sit: Supervision Sit to Stand: Minimal Sit or Stand Pivot: Minimal Safety Comment: NWB to LUE and to wear sling Safety (requires cues for:): Weight Bearing Precaution, Shoulder Precautions - BALANCE Static Sitting: Good Standing: Fair Balance Comment: Fair- Dynamic Sitting: Good Standing: Poor - NEUROMOTOR/SENSATION Dave. Lower Ext Sensation: WFL Coordination: WFL Proprioception: WFL - ROM Bilateral LE ROM: WFL Muscle Tone: WFL - STRENGTH Bilateral LE Strength Number: 3 Other comment: 3+/5 Bilateral UE Strength Number: 3 Left UE Other comment: Not tested due to fx - GAIT Pt. ambulates how many feet?: 100 Amount of Assistance Required: Minimal Type of Assistive Device: Straight Cane, Quad Cane - OBJECTIVE MEASURES & STANDARDS Objective Measures & Standards: 30 Second Sit to Stand: 6 with RUE support and min assist for balance and safety - TREATMENT Date: 08/19/24 Time: 11:30 Treatment Type: Evaluation Treatment Provided: Gait, Therapeutic Activities - TOTAL TREATMENT TIME Total Time: 60 - POST ASSESSMENT Post Assessment Comment: Pt was found in room and agreeable to participation in PT services. Pt with minimal complaints of LUE pain. Noted to be in sling with pt education on ortho recommendations for proper healing of fracture. Pt was supervision for bed mobility tasks and min assist for functional transfers and gait tasks for balance and safety. Gait training completed without a device and min assist and also with quad cane and single point cane to assess for safety. Pt was able to to ambulate with all 3; however, decreased safety with quad cane and kept getting feet tangled in cane despite cues for safety. Pt ambulated for 100ft x 5 required seated therapeutic rest breaks throughout. Review of POC and goals with pt. Pt states that she plans to return home with home health upon completion of swing bed program. - EXIT DISPOSITION Exit Position: CHAIR Call light in reach: Yes Comments: All needs met. PT/OT ASSESSMENT - PT Problem List: Decreased Bed Mobility, Decreased Transfers, Decreased Gait, Decreased Balance, Decreased Safety, Decreased LE Strength - OT Problem List: Other - PT GOALS Short Term Goals Days: 10 Mobility: Pt will perform bed mobility tasks with mod I Transfers: Pt will perform functional transfers with mod I Gait: Pt will ambulate 250ft with SPC and supervision Balance: Pt will increase static standing balance to good [employer] Goals Days: 20 Gait: Pt will ambulate 400ft without a device and mod I Balance: Pt will increase dynamic standing balance to good ROM/Strength: Pt will increase BLE strength to 5/5 Others: Pt will perform 10 sit to stand transfers in 30 seconds - PATIENT GOALS Patient/Family Goals: "Get better and stronger and go home" Goals Discussed with Patient/Family: Yes Rehabilitation Potential: Good to meet stated goals Justification for Potential: Facilitate highest level of function and safe discharge planning Weakness and Barriers: None - PLAN Suggested Treatment Plan: Bed Mobility Training, Therapeutic Activity, Gait Training, Neuro Re-education, Therapeutic Ex with HEP, Patient Education, Family Education, Other Other comment: Manual Therapy - FREQUENCY AND DURATION PT: 5-6x per week x 20 days Expected Continuation of Care at Discharge: Home Health
--- NOTE | 2024-08-19 16:10 | PT/OTEVAL ---
PT/OT OBJECTIVES - HISTORY Prescription: OT Consult Diagnosis: UTI, weakness Precautions: Fall Risk, NWB LUE in Sling, impulsive PMH: Vertigo, HTN, UTI, Hysterectomy, Cholecystectomy, Ortho Sx, Tonsillectomy Prior Level of Function: Independent Other: Prior admission- pt was reported to have a L clavicle fracture and was wearing a sling. She states that she has since removed the sling due to UE swelling. New imaging completed on this hospital admission and does not appear to show a clavicle fracture but is showing a proximal humerus fracture- ortho consult recommending conservative measures of sling and NWB. History of Present Illness: Ms. Dooley is a 74 year old female who has had 2 recent hospitalization due to weakness and falls and now with a UTI. Pt was initially admitted to hospital on 08/10/2024 and PT/OT recommended rehab but pt declined to go and went home where she continued to decline and had more falls and was again admitted to hospital on 08/15/2024 with diagnosis of UTI and weakness. Pt was found to have a proximal humeral fracture to LUE and no evidence of a clavicle fracture and per ortho recommendations pt to be NWB in sling. Pt was then agreeable to rehab placement and transitioned to swing bed on the morning of 08/19/2024. - COGNITION Mental Status: Alert, Oriented, Name, Date, Place Communication Status: Verbal Ability to Follow Directions: 1 Step Affect: Calm - PAIN Generalized Pain Scale: Mild Left Arm Pain Scale: Discomfort Comments: "Mostly my hand and the swelling" - BED MOBILITY Rolling: Supervision - TRANSFERS Supine to Sit: Supervision Sit to Stand: Minimal Sit or Stand Pivot: Minimal Toileting: Minimal Safety Comment: NWB to LUE and to wear sling Safety (requires cues for:): Weight Bearing Precaution - ADL'S Upper Body ADL: Moderate Lower Body ADL: Minimum Toileting: Minimum Bathing: Moderate - BALANCE Static Sitting: Good Standing: Fair Balance Comment: Fair- Dynamic Sitting: Good Standing: Poor - NEUROMOTOR/SENSATION Dave. Lower Ext Sensation: WFL Coordination: WFL Proprioception: WFL Dave. Upper Ext Sensation: WFL Coordination: WFL - ROM Left UE ROM: Impaired Right UE ROM: WFL - STRENGTH Bilateral LE Strength Number: 3 Other comment: 3+/5 Left UE Other comment: Not tested due to fx Right UE Strength Number: 3 - GAIT Pt. ambulates how many feet?: 100 Amount of assistance required: Minimal Type of Assistive Device: Straight Cane, Quad Cane - TREATMENT Date: 08/19/24 Time: 10:00 Treatment Provided: Therapeutic Activities, Other - TOTAL TREATMENT TIME Total Time: 90 - POST ASSESSMENT Post Assessment Comment: Pt was seen for skilled OT to assess CLOF. Pt was agreeable to participate with skilled OT and able to provide PLOF and hx. Pt sitting up in recliner. Pt STS with min A. Pt noted to be slightly unsteady during AMB. Pt given a SPC and QC for stability. Pt functionally AMB ~ 100 feet with seated RBs. Pt compelted 6 STS with min VC and min A. Pt sitting up in recliner and completed UB dressing with mod A, LB dressing min A (to get pants over L side.) Pt given time for tasks. Pt educated on safety, pt is impulsive. Pt agreeable to sit up in recliner. Pt had all needs met and call light within reach. Pt demonstrate deficits with ADLs and ADL functional mobility. Pt would benefit from skilled OT services to address ADL deficits to facilitate highest level of ADL function needed for safe d/c planning. 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 Strength/Use: Pt to improve MMT in BUE by 1 grade Short Term Goals Days: 10 Mobility for ADL's: Pt to improve safe functional ADL transfers with supv A and LRAD Safety Awareness: Pt to improve safety to F+ Dressing: Pt to improve UB dressing to set up A and AE as needed Bathing: Pt to improve overall bathing to supv A Other: Pt to improve FAT to G - PATIENT GOALS Patient/Family Goals: To stop falling Rehabilitation Potential: G to meet stated goals Justification for Potential: To facilitate highest level of ADL function - PLAN Suggested Treatment Plan: Therapeutic Activity, Self Care Training, Neuro Re- education, Therapeutic Ex with HEP, Patient Education - FREQUENCY AND DURATION OT: 5x a week x 20 day Expected Continuation of Care at Discharge: Determined on Progress
[2024-08-19] MEDS: DESYREL PO SCH (21:18)
[2024-08-19] MEDS: MILK OF MAGNESIA PO SCH (21:18)
[2024-08-19] MEDS: COLACE CAP 100 MG PO SCH (21:18)
[2024-08-19] MEDS: LEVAQUIN TAB 500 MG PO SCH (21:18)
[2024-08-19] MEDS: COREG TAB 6.25 MG PO SCH (21:18)
--- NOTE | 2024-08-20 10:30 | DR.H&P ---
H&P History & Physical for Day of: H&P Date: 08/19/24 Chief Complaint Chief Complaint: Generalized weakness History of Present Illness History of Present Illness: Ms. Dooley is a 74-year-old female with a past medical history of hypertension, constipation, vertigo and insomnia who was recently admitted for frequent falls. She does have a fracture in her left humerus. Ortho recommended sling placement. PT OT evaluated the patient and recommended rehab. Patient is currently admitted for swing bed for physical therapy. Labs/imaging reviewed Plan: Admit to swing bed status, continue PT/OT as tolerated. Follow Ortho recommendations. Resume home medications. Monitor labs as needed. Fall precautions. Past Medical History Past Medical History: Hypertension Additional Medical History: VERTIGO, INSOMNIA Past Surgical History Surgical History: Hysterectomy, Ortho Surgery and Tonsillectomy Family History Family Medical History: Hypertension Medications Home Medications: Home Medications Medication Instructions Recorded Confirmed Type amlodipine 10 mg tablet 10 mg PO QDAY 08/10/24 08/16/24 History linaclotide 72 mcg capsule 72 mcg PO DAILY 08/10/24 08/16/24 History (Linzess) meclizine 25 mg tablet 25 mg PO TID PRN 08/10/24 08/16/24 History trazodone 50 mg tablet 50 mg PO QPM 08/10/24 08/16/24 History Allergies Allergies Allergy/AdvReac Type Severity Reaction Status Date / Time No Known Allergies Allergy Verified 08/10/24 17:00 Review of Systems Constitutional: Weakness Eyes: No Symptoms Reported ENT: No Symptoms Reported Respiratory: No Symptoms Reported Cardiovascular: No Symptoms Reported Gastrointestinal: No Symptoms Reported Genitourinary: No Symptoms Reported Musculoskeletal: Arm Pain Skin: No Symptoms Reported Neurological: No Symptoms Reported Physical Exam Vital Signs: Vital Signs Blood Pressure [Right Arm] 121/68 Oriented: Normal Respiratory: Clear Throughout Cardiovascular: Normal Auscultation: Bowel Sounds: Normal Palpation: Normal Tenderness: Normal Skin: Normal Musculoskeletal: Left and Arm (wearing a sling) Psychiatric: Normal Mood Description: Calm Affect: Normal Speech Pattern: Clear and Appropriate Review H&P Reviewed: Yes Patient was examined?: Yes
[2024-08-20] MEDS: DIOVAN TAB 160 MG PO SCH (11:08)
[2024-08-20] MEDS: HYDROCHLOROTHIAZIDE 12.5 MG CAP PO SCH (11:08)
[2024-08-20] MEDS: LOVENOX INJ 40 MG SYR SC SCH (11:09)
[2024-08-20] MEDS: NORVASC TAB 10 MG PO SCH (11:09)
[2024-08-20] MEDS: K-DUR TAB 20 MEQ PO SCH (11:09)
[2024-08-20] MEDS: TYLENOL 325 MG TAB PO PRN (16:01)
[2024-08-21 06:02] LABS: BASOPHILS # (AUTO) 0.1 X10^3/uL (0.0-0.1); EOSINOPHILS # (AUTO) 0.2 x10^3/uL (0.0-0.2); EOSINOPHILS % (AUTO) 1.1 % (0.9-2.9); HEMATOCRIT 31.3 % (36.0-47.0); HEMOGLOBIN 10.6 g/dL (12.0-16.0); LYMPHOCYTES # (AUTO) 2.3 X10^3/uL (1.3-2.9); LYMPHOCYTES % (AUTO) 17.2 % (21.0-51.0); MEAN CORPUSCULAR HEMOGLOBIN 30.5 pg (27.0-34.0); MEAN CORPUSCULAR VOLUME 89.7 fL (80.0-100.0); MEAN PLATELET VOLUME 8.2 fL (7.4-11.0); MONOCYTES # (AUTO) 0.8 x10^3/uL (0.3-0.8); MONOCYTES % (AUTO) 5.9 % (0.0-13.0); NEUTROPHILS # (AUTO) 9.9 x10^3/uL (2.2-4.8); NEUTROPHILS % (AUTO) 74.8 % (42.0-75.0); PLATELET COUNT 631 X10^3/uL (150.0-450.0); RED BLOOD COUNT 3.48 X10^6/uL (3.5-5.4); RED CELL DISTRIBUTION WIDTH 12.6 % (11.6-16.5); WHITE BLOOD COUNT 13.2 X10^3/uL (3.6-10.0)
[2024-08-21 06:12] LABS: ALANINE AMINOTRANSFERASE 30 Units/L (12-78); ALBUMIN 2.6 g/dL (3.4-5.0); ALKALINE PHOSPHATASE 125 Units/L (46-116); ASPARTATE AMINO TRANSFERASE 14 Units/L (15-37); BLOOD UREA NITROGEN 11 mg/dL (7-18); CALCIUM 10.4 mg/dL (8.5-10.1); CARBON DIOXIDE 30.4 mmol/L (21-32); CHLORIDE 100 mmol/L (98-107); COR CA(FOR HYPOALB) 11.5 mg/dL (8.5-10.1); CREATININE 0.94 mg/dL (0.55-1.02); GLUCOSE 107 mg/dL (65-99); POTASSIUM 4.1 mmol/L (3.5-5.1); SODIUM 136 mmol/L (136-145); TOTAL PROTEIN 6.4 g/dL (6.4-8.2); eGFR NON BLACK RACES > 60 (>60)
[2024-08-21 06:34] LABS: PLATELET MORPHOLOGY COMMENT NORMAL (NORMAL)
--- NOTE | 2024-08-21 09:37 | PCM.PROG ---
Progress Note Progress Note for Day of Date of Exam: 08/21/24 Subjective Subjective: Patient seen at bedside, no acute events overnight. She is currently swing bed status for physical therapy. She has been working with therapy. She states her arm movement is better. She has been ambulating as tolerated. Denies any nausea, vomiting. Denies fever or chills. Denies any U TI symptoms. Labs/imaging reviewed: - WBC 13.2 hemoglobin 10.6 potassium 4.1 creatinine 0.94 Plan: Will continue current treatment, PT/OT as tolerated. Fall precautions. Patient denies any symptoms of any infection. Advised patient to let the nurse know if she notices anything. She has completed Levaquin for previous UTI. Monitor labs as needed. Past Medical Family Social History Allergies: Allergies No Known Allergies Allergy (Verified 08/10/24 17:00) Vital Signs and I&O's Intake and Output: Intake & Output 08/18/24 08/19/24 08/20/24 08/21/24 23:59 23:59 23:59 23:59 Intake Total 1200 / 1200 1240 / 1240 545 / 545 Balance 1200 / 1200 1240 / 1240 545 / 545 Physical Exam Oriented: Normal Respiratory: Normal Cardiovascular: Normal Auscultation: Bowel Sounds: Normal Palpation: Normal Tenderness: Normal Skin: Normal Musculoskeletal: Left and Arm (wearing a sling) Psychiatric: Normal Mood Description: Calm Affect: Normal Speech Pattern: Clear Laboratory and Diagnostics 08/21/24 05:22 08/21/24 05:22 Labs: Laboratory WBC 13.2 X10^3/uL (3.6-10.0) H 08/21/24 05:22 RBC 3.48 X10^6/uL (3.5-5.4) L 08/21/24 05:22 Hgb 10.6 g/dL (12.0-16.0) L 08/21/24 05:22 Hct 31.3 % (36.0-47.0) L 08/21/24 05:22 MCV 89.7 fL (80.0-100.0) 08/21/24 05:22 MCH 30.5 pg (27.0-34.0) 08/21/24 05:22 MCHC 34.0 g/dL (33.0-35.0) 08/21/24 05:22 RDW 12.6 % (11.6-16.5) 08/21/24 05:22 Plt Count 631 X10^3/uL (150.0-450.0) H 08/21/24 05:22 Plt Count Comment Increased (ADEQUATE) A 08/21/24 05:22 MPV 8.2 fL (7.4-11.0) 08/21/24 05:22 Neut % (Auto) 74.8 % (42.0-75.0) 08/21/24 05:22 Lymph % (Auto) 17.2 % (21.0-51.0) L 08/21/24 05:22 [place] % (Auto) 5.9 % (0.0-13.0) 08/21/24 05:22 Eos % (Auto) 1.1 % (0.9-2.9) 08/21/24 05:22 Baso % (Auto) 1.0 % (0.2-1.0) 08/21/24 05:22 Neut # (Auto) 9.9 x10^3/uL (2.2-4.8) H 08/21/24 05:22 Lymph # (Auto) 2.3 X10^3/uL (1.3-2.9) 08/21/24 05:22 [place] # (Auto) 0.8 x10^3/uL (0.3-0.8) 08/21/24 05:22 Eos # (Auto) 0.2 x10^3/uL (0.0-0.2) 08/21/24 05:22 Baso # (Auto) 0.1 X10^3/uL (0.0-0.1) 08/21/24 05:22 Absolute Nucleated RBC 0.0 /100WBC 08/21/24 05:22 Total Counted 100 08/21/24 05:22 Neutrophils % (Manual) 82 % (39-76) H 08/21/24 05:22 Lymphocytes % (Manual) 14 % (13-43) 08/21/24 05:22 Monocytes % (Manual) 4 % (4-9) 08/21/24 05:22 Plt Morphology Comment Normal (NORMAL) 08/21/24 05:22 RBC Morphology Normal (NORMAL) 08/21/24 05:22 Sodium 136 mmol/L (136-145) 08/21/24 05:22 Corrected Sodium TNP 08/21/24 05:22 Potassium 4.1 mmol/L (3.5-5.1) 08/21/24 05:22 Chloride 100 mmol/L (98-107) 08/21/24 05:22 Carbon Dioxide 30.4 mmol/L (21-32) 08/21/24 05:22 BUN 11 mg/dL (7-18) 08/21/24 05:22 Creatinine 0.94 mg/dL (0.55-1.02) 08/21/24 05:22 Est GFR (MDRD) Af Amer > 60 (>60) 08/21/24 05:22 Est GFR (MDRD) Non-Af > 60 (>60) 08/21/24 05:22 Glucose 107 mg/dL (65-99) H 08/21/24 05:22 Calcium 10.4 mg/dL (8.5-10.1) H 08/21/24 05:22 Corrected Calcium 11.5 mg/dL (8.5-10.1) H 08/21/24 05:22 Total Bilirubin 0.40 mg/dL (0.2-1.0) 08/21/24 05:22 AST 14 Units/L (15-37) L 08/21/24 05:22 ALT 30 Units/L (12-78) 08/21/24 05:22 Alkaline Phosphatase 125 Units/L (46-116) H 08/21/24 05:22 Total Protein 6.4 g/dL (6.4-8.2) 08/21/24 05:22 Albumin 2.6 g/dL (3.4-5.0) L 08/21/24 05:22 Globulin 3.8 g/dL (2.5-4.5) 08/21/24 05:22 Albumin/Globulin Ratio 0.7 Ratio (1.1-2.1) L 08/21/24 05:22 Plan (1) Proximal humerus fracture: Status: Acute Qualifiers: Encounter type: initial encounter Fracture type: closed Fracture morphology: unspecified fracture morphology Laterality: left Qualified Code(s): S42.202A - Unspecified fracture of upper end of left humerus, initial encounter for closed fracture (2) HTN (hypertension): Status: Chronic Qualifiers: Hypertension type: primary hypertension Qualified Code(s): I10 - Essential (primary) hypertension (3) Generalized weakness: Status: Acute
[2024-08-21] MEDS ORDERED: MILK OF MAGNESIA PO PRN (09:47)
[2024-08-23 05:40] LABS: BASOPHILS # (AUTO) 0.2 X10^3/uL (0.0-0.1); BASOPHILS % (AUTO) 1.3 % (0.2-1.0); EOSINOPHILS # (AUTO) 0.2 x10^3/uL (0.0-0.2); EOSINOPHILS % (AUTO) 1.6 % (0.9-2.9); HEMATOCRIT 28.8 % (36.0-47.0); HEMOGLOBIN 9.8 g/dL (12.0-16.0); LYMPHOCYTES # (AUTO) 2.9 X10^3/uL (1.3-2.9); LYMPHOCYTES % (AUTO) 24.4 % (21.0-51.0); MEAN CORPUSCULAR HEMOGLOBIN 30.3 pg (27.0-34.0); MEAN CORPUSCULAR HGB CONC 33.9 g/dL (33.0-35.0); MEAN CORPUSCULAR VOLUME 89.4 fL (80.0-100.0); MEAN PLATELET VOLUME 7.6 fL (7.4-11.0); MONOCYTES # (AUTO) 0.7 x10^3/uL (0.3-0.8); MONOCYTES % (AUTO) 5.6 % (0.0-13.0); NEUTROPHILS # (AUTO) 7.8 x10^3/uL (2.2-4.8); NEUTROPHILS % (AUTO) 67.1 % (42.0-75.0); PLATELET COUNT 641 X10^3/uL (150.0-450.0); RED BLOOD COUNT 3.22 X10^6/uL (3.5-5.4); RED CELL DISTRIBUTION WIDTH 12.7 % (11.6-16.5); WHITE BLOOD COUNT 11.7 X10^3/uL (3.6-10.0)
[2024-08-23 05:48] LABS: ALANINE AMINOTRANSFERASE 20 Units/L (12-78); ALBUMIN 2.3 g/dL (3.4-5.0); ALKALINE PHOSPHATASE 109 Units/L (46-116); ASPARTATE AMINO TRANSFERASE 11 Units/L (15-37); BLOOD UREA NITROGEN 10 mg/dL (7-18); CALCIUM 10.1 mg/dL (8.5-10.1); CARBON DIOXIDE 30.3 mmol/L (21-32); CHLORIDE 101 mmol/L (98-107); COR CA(FOR HYPOALB) 11.5 mg/dL (8.5-10.1); CREATININE 0.94 mg/dL (0.55-1.02); GLUCOSE 98 mg/dL (65-99); POTASSIUM 4.2 mmol/L (3.5-5.1); SODIUM 138 mmol/L (136-145); eGFR NON BLACK RACES > 60 (>60)
[2024-08-23 06:45] LABS: BASOPHILS % (MANUAL) 2 % (0-1); PLATELET MORPHOLOGY COMMENT NORMAL (NORMAL)
--- NOTE | 2024-08-23 23:11 | PCM.PROG ---
Progress Note Progress Note for Day of Date of Exam: 08/23/24 Subjective Subjective: Patient is a 74-year-old female currently swing bed status for physical therapy. She continues to work with therapy. She states her arm movement is better. She has been ambulating as tolerated. Denies any nausea, vomiting. Denies fever or chills. Denies any UTI symptoms. Labs/imaging reviewed: WBC 11.7, hemoglobin 9.8, platelets 641, sodium 138, potassium 4.2, creatinine 0.94, glucose 98. Plan: Continue current treatment, PT/OT as tolerated. Fall precautions. She has completed Levaquin for previous UTI. Otherwise continue with current treatment plan. Monitor labs as needed. Past Medical Family Social History Allergies: Allergies No Known Allergies Allergy (Verified 08/10/24 17:00) Review of Systems ROS changes noted: see HPI Vital Signs and I&O's Vital Signs: Vital Signs Temperature 98.0 F Pulse Rate [Brachial] 98 Respiratory Rate 20 Respiratory Rate 18 Blood Pressure [Left Arm] 109/54 Blood Pressure [Right Arm] 123/58 O2 Sat by Pulse Oximetry 97 Intake and Output: Intake & Output 08/20/24 08/21/24 08/22/24 08/23/24 23:59 23:59 23:59 23:59 Intake Total 1240 / 1240 765 / 765 1100 / 1100 1660 / 1660 Balance 1240 / 1240 765 / 765 1100 / 1100 1660 / 1660 Physical Exam Oriented: Normal Respiratory: Normal Cardiovascular: Normal Auscultation: Bowel Sounds: Normal Tenderness: Normal Skin: Normal Musculoskeletal: Left and Arm (wearing a sling) Psychiatric: Normal Mood Description: Calm Affect: Normal Speech Pattern: Clear Laboratory and Diagnostics 08/23/24 05:16 08/23/24 05:16 Labs: Laboratory WBC 11.7 X10^3/uL (3.6-10.0) H 08/23/24 05:16 RBC 3.22 X10^6/uL (3.5-5.4) L 08/23/24 05:16 Hgb 9.8 g/dL (12.0-16.0) L 08/23/24 05:16 Hct 28.8 % (36.0-47.0) L 08/23/24 05:16 MCV 89.4 fL (80.0-100.0) 04/18/25 05:16 MCH 30.3 pg (27.0-34.0) 08/23/24 05:16 MCHC 33.9 g/dL (33.0-35.0) 08/23/24 05:16 RDW 12.7 % (11.6-16.5) 08/23/24 05:16 Plt Count 641 X10^3/uL (150.0-450.0) H 08/23/24 05:16 Plt Count Comment Increased (ADEQUATE) A 08/23/24 05:16 MPV 7.6 fL (7.4-11.0) 08/23/24 05:16 Neut % (Auto) 67.1 % (42.0-75.0) 08/23/24 05:16 Lymph % (Auto) 24.4 % (21.0-51.0) 08/23/24 05:16 [place] % (Auto) 5.6 % (0.0-13.0) 08/23/24 05:16 Eos % (Auto) 1.6 % (0.9-2.9) 08/23/24 05:16 Baso % (Auto) 1.3 % (0.2-1.0) H 08/23/24 05:16 Neut # (Auto) 7.8 x10^3/uL (2.2-4.8) H 08/23/24 05:16 Lymph # (Auto) 2.9 X10^3/uL (1.3-2.9) 08/23/24 05:16 [place] # (Auto) 0.7 x10^3/uL (0.3-0.8) 08/23/24 05:16 Eos # (Auto) 0.2 x10^3/uL (0.0-0.2) 08/23/24 05:16 Baso # (Auto) 0.2 X10^3/uL (0.0-0.1) H 08/23/24 05:16 Absolute Nucleated RBC 0.0 /100WBC 08/23/24 05:16 Total Counted 100 08/23/24 05:16 Neutrophils % (Manual) 74 % (39-76) 08/23/24 05:16 Lymphocytes % (Manual) 21 % (13-43) 08/23/24 05:16 Monocytes % (Manual) 3 % (4-9) L 08/23/24 05:16 Basophils % (Manual) 2 % (0-1) H 08/23/24 05:16 Plt Morphology Comment Normal (NORMAL) 08/23/24 05:16 RBC Morphology Normal (NORMAL) 08/23/24 05:16 Sodium 138 mmol/L (136-145) 08/23/24 05:16 Corrected Sodium TNP 08/23/24 05:16 Potassium 4.2 mmol/L (3.5-5.1) 08/23/24 05:16 Chloride 101 mmol/L (98-107) 08/23/24 05:16 Carbon Dioxide 30.3 mmol/L (21-32) 08/23/24 05:16 BUN 10 mg/dL (7-18) 08/23/24 05:16 Creatinine 0.94 mg/dL (0.55-1.02) 08/23/24 05:16 Est GFR (MDRD) Af Amer > 60 (>60) 08/23/24 05:16 Est GFR (MDRD) Non-Af > 60 (>60) 08/23/24 05:16 Glucose 98 mg/dL (65-99) 08/23/24 05:16 Calcium 10.1 mg/dL (8.5-10.1) 08/23/24 05:16 Corrected Calcium 11.5 mg/dL (8.5-10.1) H 08/23/24 05:16 Total Bilirubin 0.20 mg/dL (0.2-1.0) 08/23/24 05:16 AST 11 Units/L (15-37) L 08/23/24 05:16 ALT 20 Units/L (12-78) 08/23/24 05:16 Alkaline Phosphatase 109 Units/L (46-116) 08/23/24 05:16 Total Protein 6.0 g/dL (6.4-8.2) L 08/23/24 05:16 Albumin 2.3 g/dL (3.4-5.0) L 08/23/24 05:16 Globulin 3.7 g/dL (2.5-4.5) 08/23/24 05:16 Albumin/Globulin Ratio 0.6 Ratio (1.1-2.1) L 08/23/24 05:16 Plan (1) Proximal humerus fracture: Status: Acute Qualifiers: Encounter type: initial encounter Fracture type: closed Fracture morphology: unspecified fracture morphology Laterality: left Qualified Code(s): S42.202A - Unspecified fracture of upper end of left humerus, initial encounter for closed fracture (2) HTN (hypertension): Status: Chronic Qualifiers: Hypertension type: primary hypertension Qualified Code(s): I10 - Essential (primary) hypertension (3) Generalized weakness: Status: Acute
[2024-08-24] MEDS: VISTARIL PO PRN (20:36)
[2024-08-26 04:53] LABS: BASOPHILS # (AUTO) 0.2 X10^3/uL (0.0-0.1); BASOPHILS % (AUTO) 1.4 % (0.2-1.0); EOSINOPHILS # (AUTO) 0.3 x10^3/uL (0.0-0.2); EOSINOPHILS % (AUTO) 2.4 % (0.9-2.9); HEMATOCRIT 27.5 % (36.0-47.0); HEMOGLOBIN 9.4 g/dL (12.0-16.0); LYMPHOCYTES # (AUTO) 2.4 X10^3/uL (1.3-2.9); LYMPHOCYTES % (AUTO) 21.6 % (21.0-51.0); MEAN CORPUSCULAR HEMOGLOBIN 30.6 pg (27.0-34.0); MEAN CORPUSCULAR HGB CONC 34.1 g/dL (33.0-35.0); MEAN CORPUSCULAR VOLUME 89.5 fL (80.0-100.0); MEAN PLATELET VOLUME 7.7 fL (7.4-11.0); MONOCYTES # (AUTO) 0.5 x10^3/uL (0.3-0.8); MONOCYTES % (AUTO) 4.3 % (0.0-13.0); NEUTROPHILS # (AUTO) 7.8 x10^3/uL (2.2-4.8); NEUTROPHILS % (AUTO) 70.3 % (42.0-75.0); PLATELET COUNT 698 X10^3/uL (150.0-450.0); RED BLOOD COUNT 3.07 X10^6/uL (3.5-5.4); RED CELL DISTRIBUTION WIDTH 12.7 % (11.6-16.5); WHITE BLOOD COUNT 11.1 X10^3/uL (3.6-10.0)
[2024-08-26 05:10] LABS: ALANINE AMINOTRANSFERASE 18 Units/L (12-78); ALBUMIN 2.4 g/dL (3.4-5.0); ALKALINE PHOSPHATASE 107 Units/L (46-116); ASPARTATE AMINO TRANSFERASE 12 Units/L (15-37); BLOOD UREA NITROGEN 11 mg/dL (7-18); CARBON DIOXIDE 30.3 mmol/L (21-32); CHLORIDE 102 mmol/L (98-107); COR CA(FOR HYPOALB) 11.3 mg/dL (8.5-10.1); CREATININE 0.88 mg/dL (0.55-1.02); GLUCOSE 95 mg/dL (65-99); POTASSIUM 3.8 mmol/L (3.5-5.1); SODIUM 139 mmol/L (136-145); TOTAL PROTEIN 5.9 g/dL (6.4-8.2); eGFR NON BLACK RACES > 60 (>60)
--- NOTE | 2024-08-26 09:28 | PCM.PROG ---
Progress Note Progress Note for Day of Date of Exam: 08/26/24 Subjective Subjective: Patient seen at bedside, no acute events overnight. She is currently swing bed status for physical therapy. She continues to work with therapy. She states her arm movement is better. She has been ambulating as tolerated. Denies any nausea, vomiting. Labs/imaging reviewed: WBC 11.1, hemoglobin 9.4, platelets 698, sodium 139, potassium 3.8, creatinine 0.88, glucose 95 Plan: Continue current treatment, PT/OT as tolerated. Fall precautions. Continue with current treatment plan. Monitor labs as needed. Past Medical Family Social History Allergies: Allergies No Known Allergies Allergy (Verified 08/10/24 17:00) Vital Signs and I&O's Vital Signs: Vital Signs Temperature 97.4 F Pulse Rate [Brachial] 104 Respiratory Rate 20 Respiratory Rate 19 Blood Pressure [Right Arm] 116/55 O2 Sat by Pulse Oximetry 94 Intake and Output: Intake & Output 08/23/24 08/24/24 08/25/24 08/26/24 23:59 23:59 23:59 23:59 Intake Total 1680 / 1680 1155 / 1155 1160 / 1160 0 / 0 Balance 1680 / 1680 1155 / 1155 1160 / 1160 0 / 0 Physical Exam Oriented: Normal Respiratory: Normal Cardiovascular: Normal Auscultation: Bowel Sounds: Normal Palpation: Normal Tenderness: Normal Skin: Normal Musculoskeletal: Left and Arm (wearing a sling) Psychiatric: Normal Mood Description: Calm Affect: Normal Speech Pattern: Clear and Appropriate Laboratory and Diagnostics 08/26/24 04:00 08/26/24 04:00 Labs: Laboratory WBC 11.1 X10^3/uL (3.6-10.0) H 08/26/24 04:00 RBC 3.07 X10^6/uL (3.5-5.4) L 08/26/24 04:00 Hgb 9.4 g/dL (12.0-16.0) L 08/26/24 04:00 Hct 27.5 % (36.0-47.0) L 08/26/24 04:00 MCV 89.5 fL (80.0-100.0) 08/26/24 04:00 MCH 30.6 pg (27.0-34.0) 08/26/24 04:00 MCHC 34.1 g/dL (33.0-35.0) 08/26/24 04:00 RDW 12.7 % (11.6-16.5) 08/26/24 04:00 Plt Count 698 X10^3/uL (150.0-450.0) H 08/26/24 04:00 Plt Count Comment Increased (ADEQUATE) A 08/23/24 05:16 MPV 7.7 fL (7.4-11.0) 08/26/24 04:00 Neut % (Auto) 70.3 % (42.0-75.0) 08/26/24 04:00 Lymph % (Auto) 21.6 % (21.0-51.0) 08/26/24 04:00 [place] % (Auto) 4.3 % (0.0-13.0) 08/26/24 04:00 Eos % (Auto) 2.4 % (0.9-2.9) 08/26/24 04:00 Baso % (Auto) 1.4 % (0.2-1.0) H 08/26/24 04:00 Neut # (Auto) 7.8 x10^3/uL (2.2-4.8) H 08/26/24 04:00 Lymph # (Auto) 2.4 X10^3/uL (1.3-2.9) 08/26/24 04:00 [place] # (Auto) 0.5 x10^3/uL (0.3-0.8) 08/26/24 04:00 Eos # (Auto) 0.3 x10^3/uL (0.0-0.2) H 08/26/24 04:00 Baso # (Auto) 0.2 X10^3/uL (0.0-0.1) H 08/26/24 04:00 Absolute Nucleated RBC 0.0 /100WBC 08/26/24 04:00 Total Counted 100 08/23/24 05:16 Neutrophils % (Manual) 74 % (39-76) 08/23/24 05:16 Lymphocytes % (Manual) 21 % (13-43) 08/23/24 05:16 Monocytes % (Manual) 3 % (4-9) L 08/23/24 05:16 Basophils % (Manual) 2 % (0-1) H 08/23/24 05:16 Plt Morphology Comment Normal (NORMAL) 08/23/24 05:16 RBC Morphology Normal (NORMAL) 08/23/24 05:16 Sodium 139 mmol/L (136-145) 08/26/24 04:00 Corrected Sodium TNP 08/26/24 04:00 Potassium 3.8 mmol/L (3.5-5.1) 08/26/24 04:00 Chloride 102 mmol/L (98-107) 08/26/24 04:00 Carbon Dioxide 30.3 mmol/L (21-32) 08/26/24 04:00 BUN 11 mg/dL (7-18) 08/26/24 04:00 Creatinine 0.88 mg/dL (0.55-1.02) 08/26/24 04:00 Est GFR (MDRD) Af Amer > 60 (>60) 08/26/24 04:00 Est GFR (MDRD) Non-Af > 60 (>60) 08/26/24 04:00 Glucose 95 mg/dL (65-99) 08/26/24 04:00 Calcium 10.0 mg/dL (8.5-10.1) 08/26/24 04:00 Corrected Calcium 11.3 mg/dL (8.5-10.1) H 08/26/24 04:00 Total Bilirubin 0.20 mg/dL (0.2-1.0) 08/26/24 04:00 AST 12 Units/L (15-37) L 08/26/24 04:00 ALT 18 Units/L (12-78) 08/26/24 04:00 Alkaline Phosphatase 107 Units/L (46-116) 08/26/24 04:00 Total Protein 5.9 g/dL (6.4-8.2) L 08/26/24 04:00 Albumin 2.4 g/dL (3.4-5.0) L 08/26/24 04:00 Globulin 3.5 g/dL (2.5-4.5) 08/26/24 04:00 Albumin/Globulin Ratio 0.7 Ratio (1.1-2.1) L 08/26/24 04:00 Plan (1) Proximal humerus fracture: Status: Acute Qualifiers: Encounter type: initial encounter Fracture morphology: unspecified fracture morphology Fracture type: closed Laterality: left Qualified Code(s): S42.202A - Unspecified fracture of upper end of left humerus, initial encounter for closed fracture (2) HTN (hypertension): Status: Chronic Qualifiers: Hypertension type: primary hypertension Qualified Code(s): I10 - Essential (primary) hypertension (3) Generalized weakness: Status: Acute
[2024-08-27 20:41] VITALS: O2SAT 95
[2024-08-28 06:05] LABS: BASOPHILS # (AUTO) 0.1 X10^3/uL (0.0-0.1); BASOPHILS % (AUTO) 1.4 % (0.2-1.0); EOSINOPHILS # (AUTO) 0.1 x10^3/uL (0.0-0.2); EOSINOPHILS % (AUTO) 1.4 % (0.9-2.9); HEMATOCRIT 26.5 % (36.0-47.0); HEMOGLOBIN 9.2 g/dL (12.0-16.0); LYMPHOCYTES # (AUTO) 2.3 X10^3/uL (1.3-2.9); LYMPHOCYTES % (AUTO) 22.6 % (21.0-51.0); MEAN CORPUSCULAR HEMOGLOBIN 31.4 pg (27.0-34.0); MEAN CORPUSCULAR HGB CONC 34.9 g/dL (33.0-35.0); MEAN CORPUSCULAR VOLUME 89.9 fL (80.0-100.0); MEAN PLATELET VOLUME 7.8 fL (7.4-11.0); MONOCYTES # (AUTO) 0.4 x10^3/uL (0.3-0.8); MONOCYTES % (AUTO) 3.5 % (0.0-13.0); NEUTROPHILS # (AUTO) 7.3 x10^3/uL (2.2-4.8); NEUTROPHILS % (AUTO) 71.1 % (42.0-75.0); PLATELET COUNT 631 X10^3/uL (150.0-450.0); RED BLOOD COUNT 2.95 X10^6/uL (3.5-5.4); RED CELL DISTRIBUTION WIDTH 12.8 % (11.6-16.5); WHITE BLOOD COUNT 10.2 X10^3/uL (3.6-10.0)
[2024-08-28 06:23] LABS: ALANINE AMINOTRANSFERASE 19 Units/L (12-78); ALBUMIN 2.5 g/dL (3.4-5.0); ALKALINE PHOSPHATASE 102 Units/L (46-116); ASPARTATE AMINO TRANSFERASE 15 Units/L (15-37); BLOOD UREA NITROGEN 10 mg/dL (7-18); CALCIUM 10.2 mg/dL (8.5-10.1); CARBON DIOXIDE 30.1 mmol/L (21-32); CHLORIDE 103 mmol/L (98-107); COR CA(FOR HYPOALB) 11.4 mg/dL (8.5-10.1); CREATININE 0.87 mg/dL (0.55-1.02); GLUCOSE 97 mg/dL (65-99); MAGNESIUM 1.7 mg/dL (2.0-2.9); POTASSIUM 3.8 mmol/L (3.5-5.1); SODIUM 140 mmol/L (136-145); TOTAL PROTEIN 5.9 g/dL (6.4-8.2); eGFR NON BLACK RACES > 60 (>60)
[2024-08-28] MEDS ORDERED: CONSULT PHARMACY - POTASSIUM & MAGNESIUM XX SCH (07:00)
[2024-08-28] MEDS: MAG-OX TAB PO SCH (08:25)
[2024-08-28 10:07] VITALS: BP 117/56; PULSE 93; TEMP 97.8
[2024-08-28] MEDS: K-DUR TAB 20 MEQ PO SCH (10:30)
[2024-08-28 12:02] VITALS: RESP 19
== END 2024-08-28 12:30 | disposition home health service (06) | DRG 563 ==
LOC: MED/SURG 10:00
PROVIDERS: ADMIT Internal Medicine; ATTEND Internal Medicine

== ENCOUNTER 2024-11-05 14:53 | Observation (INO) ==
[2024-11-05] MEDS: ROCEPHIN VIAL 1 GRAM 1 G in NS 100 ML IV 100 ML IV SCH (17:26)
[2024-11-05] MEDS: NS 1,000 ML IV 1,000 ML IV SCH (17:26)
[2024-11-05 17:45] VITALS: BMI 23.8
[2024-11-05 17:54] LABS: MEAN PLATELET VOLUME 8.3 fL (7.4-11.0)
[2024-11-05 18:04] LABS: COR NA(FOR HYPERGLY) 135 mmol/L (136-145); CREATININE 0.75 mg/dL (0.55-1.02); eGFR NON BLACK RACES > 60 (>60)
[2024-11-05] MEDS: CATAPRES TAB 0.1 MG PO ONE (18:07)
[2024-11-05 18:12] LABS: RED CELL DISTRIBUTION WIDTH 13.3 % (11.6-16.5)
--- NOTE | 2024-11-05 18:12 | EKG ---
Test Reason : hypertension protocol Blood Pressure : */* mmHG Vent. Rate : 120 BPM Atrial Rate : 120 BPM P-R Int : 144 ms QRS Dur : 80 ms QT Int : 336 ms P-R-T Axes : 52 41 58 degrees QTc Int : 474 ms Sinus tachycardia Cannot rule out Anterior infarct , age undetermined Abnormal ECG No previous ECGs available Confirmed by Scooter Lee MD ([id number]) on 11/06/2024 5:47:49 AM Referred By: Confirmed By: Scooter Lee MD
[2024-11-05] MEDS: MAG-OX TAB PO SCH (18:31)
[2024-11-05] MEDS: K-DUR TAB 20 MEQ PO SCH (18:31)
[2024-11-05] MEDS ORDERED: CONSULT PHARMACY - POTASSIUM & MAGNESIUM XX SCH (19:00)
[2024-11-06 03:48] LABS: BLOOD/HEMOGLOBIN,URINE NEGATIVE (NEGATIVE); LEUKOCYTE ESTERASE ,URINE NEGATIVE (NEGATIVE); NITRITES,URINE NEGATIVE (NEGATIVE)
[2024-11-06 03:53] LABS: APPEARANCE,URINE SLIGHTLY HAZY (CLEAR)
[2024-11-06 03:55] LABS: SQUAMOUS EPITHELIAL CELL,UR MANY /HPF (NEGATIVE)
[2024-11-06 05:54] LABS: MEAN PLATELET VOLUME 8.4 fL (7.4-11.0); RED CELL DISTRIBUTION WIDTH 13.2 % (11.6-16.5)
[2024-11-06 06:07] LABS: COR CA(FOR HYPOALB) 10.8 mg/dL (8.5-10.1); CREATININE 0.68 mg/dL (0.55-1.02); eGFR NON BLACK RACES > 60 (>60)
[2024-11-06] MEDS ORDERED: CONSULT PHARMACY - POTASSIUM & MAGNESIUM XX SCH (08:00)
[2024-11-06] MEDS: K-DUR TAB 20 MEQ PO SCH (09:20)
[2024-11-06] MEDS: DIOVAN TAB 160 MG PO SCH (09:20)
[2024-11-06] MEDS: NORVASC TAB 10 MG PO SCH (09:21)
[2024-11-06] MEDS: CELEBREX PO SCH (09:21)
[2024-11-06] MEDS: MAG-OX TAB PO SCH (09:21)
[2024-11-06] MEDS: HYDROCHLOROTHIAZIDE 12.5 MG CAP PO SCH (09:21)
[2024-11-06] MEDS: VALSARTAN HYDROCHLOROTHIAZIDE PO SCH (09:35)
--- NOTE | 2024-11-06 10:25 | DR.H&P ---
H&P History & Physical for Day of: H&P Date: 11/06/24 Chief Complaint Chief Complaint: Generalized weakness History of Present Illness History of Present Illness: Ms. Dooley is a 74-year-old female who presented with generalized weakness and fall. She contacted her PCPs office and was concerned that she might have a UTI. Patient was directly admitted for further care. Initial workup showed elevated WBC, low magnesium and potassium. She was started on IV fluids and electrolyte replacement. Her UA was negative. AIT UTI panel is pending. She has been on IV Rocephin. She does report feeling better this morning. She denies having any chest pain, shortness of breath, nausea or vomiting. Labs/imaging reviewed: - WBC 13.4 hemoglobin 11 potassium 3.5 magnesium 1.7 creatinine 0.68 - UA negative - AIT UTI panel pending Plan: Admit to [facility]. Continue IV fluids and antibiotics. Follow pending cultures. Order chest x-ray. Replace electrolytes as per protocol. Resume home medications. Monitor a.m. labs and imaging. Physical therapy as tolerated. Past Medical History Past Medical History: Hypertension Additional Medical History: VERTIGO, INSOMNIA Past Surgical History Surgical History: Hysterectomy, Ortho Surgery and Tonsillectomy Family History Family Medical History: Hypertension Social History Does any household member use tobacco: No Alcohol Use: None Drug Use: None Medications Home Medications: Home Medications Medication Instructions Recorded Confirmed Type amlodipine 10 mg tablet 10 mg PO QDAY 08/10/2411/05 History linaclotide 72 mcg capsule 72 mcg PO DAILY 08/10/24 History (Yessi) meclizine 25 mg tablet 25 mg PO TID PRN 08/10/24 History trazodone 50 mg tablet 50 mg PO QPM 08/10/24 History celecoxib 200 mg capsule 200 mg PO BID 11/05/2411/05 History valsartan 160 1 tab PO QDAY 11/05/2411/05 History mg-hydrochlorothiazide 12.5 mg tablet Allergies Allergies Allergy/AdvReac Type Severity Reaction Status Date / Time No Known Allergies Allergy Verified 08/10/24 17:00 Labs 11/06/24 05:07 11/06/24 05:07 Labs: Laboratory WBC 13.4 X10^3/uL (3.6-10.0) H 11/06/24 05:07 RBC 3.56 X10^6/uL (3.5-5.4) 11/06/24 05:07 Hgb 11.0 g/dL (12.0-16.0) L 11/06/24 05:07 Hct 32.0 % (36.0-47.0) L 11/06/24 05:07 MCV 89.8 fL (80.0-100.0) 11/06/24 05:07 MCH 30.9 pg (27.0-34.0) 11/06/24 05:07 MCHC 34.4 g/dL (33.0-35.0) 11/06/24 05:07 RDW 13.2 % (11.6-16.5) 11/06/24 05:07 Plt Count 372 X10^3/uL (150.0-450.0) 11/06/24 05:07 MPV 8.4 fL (7.4-11.0) 11/06/24 05:07 Neut % (Auto) 82.0 % (42.0-75.0) H 11/06/24 05:07 Lymph % (Auto) 10.4 % (21.0-51.0) L 11/06/24 05:07 [place] % (Auto) 6.6 % (0.0-13.0) 11/06/24 05:07 Eos % (Auto) 0.4 % (0.9-2.9) L 11/06/24 05:07 Baso % (Auto) 0.6 % (0.2-1.0) 11/06/24 05:07 Neut # (Auto) 11.0 x10^3/uL (2.2-4.8) H 11/06/24 05:07 Lymph # (Auto) 1.4 X10^3/uL (1.3-2.9) 11/06/24 05:07 [place] # (Auto) 0.9 x10^3/uL (0.3-0.8) H 11/06/24 05:07 Eos # (Auto) 0.1 x10^3/uL (0.0-0.2) 11/06/24 05:07 Baso # (Auto) 0.1 X10^3/uL (0.0-0.1) 11/06/24 05:07 Absolute Nucleated RBC 0.0 /100WBC 11/06/24 05:07 Sodium 136 mmol/L (136-145) 11/06/24 05:07 Corrected Sodium TNP 11/06/24 05:07 Potassium 3.5 mmol/L (3.5-5.1) 11/06/24 05:07 Chloride 99 mmol/L (98-107) 11/06/24 05:07 Carbon Dioxide 30.3 mmol/L (21-32) 11/06/24 05:07 BUN 14 mg/dL (7-18) 11/06/24 05:07 Creatinine 0.68 mg/dL (0.55-1.02) 11/06/24 05:07 Est GFR (MDRD) Af Amer > 60 (>60) 11/06/24 05:07 Est GFR (MDRD) Non-Af > 60 (>60) 11/06/24 05:07 Glucose 107 mg/dL (65-99) H 11/06/24 05:07 Calcium 9.8 mg/dL (8.5-10.1) 11/06/24 05:07 Corrected Calcium 10.8 mg/dL (8.5-10.1) H 11/06/24 05:07 Magnesium 1.7 mg/dL (2.0-2.9) L 11/06/24 05:07 Total Bilirubin 0.40 mg/dL (0.2-1.0) 11/06/24 05:07 AST 29 Units/L (15-37) 11/06/24 05:07 ALT 45 Units/L (12-78) 11/06/24 05:07 Alkaline Phosphatase 101 Units/L (46-116) 11/06/24 05:07 Total Protein 7.0 g/dL (6.4-8.2) 11/06/24 05:07 Albumin 2.7 g/dL (3.4-5.0) L 11/06/24 05:07 Globulin 4.3 g/dL (2.5-4.5) 11/06/24 05:07 Albumin/Globulin Ratio 0.6 Ratio (1.1-2.1) L 11/06/24 05:07 Specimen Type Clean catch urine 11/06/24 03:20 Urine Color Yellow (YELLOW) 11/06/24 03:20 Urine Appearance Slightly hazy (CLEAR) 11/06/24 03:20 Urine pH 6.5 (5.0 - 8.0) 11/06/24 03:20 Ur Specific [place] 1.015 (1.000-1.030) 11/06/24 03:20 Urine Protein 2+ (NEGATIVE) 11/06/24 03:20 Urine Glucose (UA) Negative (NEGATIVE) 11/06/24 03:20 Urine Ketones Negative (NEGATIVE) 11/06/24 03:20 Urine Blood Negative (NEGATIVE) 11/06/24 03:20 Urine Nitrite Negative (NEGATIVE) 11/06/24 03:20 Urine Bilirubin Negative (NEGATIVE) 11/06/24 03:20 Urine Urobilinogen 1+ (NORMAL) 11/06/24 03:20 Ur Leukocyte Esterase Negative (NEGATIVE) 11/06/24 03:20 Urine RBC 0-2 /HPF (0-3) 11/06/24 03:20 Urine WBC 3-5 /HPF (0-5) 11/06/24 03:20 Ur Squamous Epith Cells Many /HPF (NEGATIVE) 11/06/24 03:20 Urine Bacteria Negative /HPF (NEGATIVE) 11/06/24 03:20 Ur Culture Indicated? No/not indicated 11/06/24 03:20 Review of Systems Constitutional: Weakness Eyes: No Symptoms Reported ENT: No Symptoms Reported Respiratory: No Symptoms Reported Cardiovascular: No Symptoms Reported Gastrointestinal: No Symptoms Reported Genitourinary: No Symptoms Reported Musculoskeletal: No Symptoms Reported Skin: No Symptoms Reported Neurological: No Symptoms Reported Physical Exam Vital Signs: Vital Signs Temperature 97.8 F Temperature 97.6 F Pulse Rate [Left Radial] 103 Pulse Rate [Left Radial] 98 Respiratory Rate 20 Respiratory Rate 18 Blood Pressure [Left Arm] 177/95 Blood Pressure [Left Arm] 132/71 O2 Sat by Pulse Oximetry 95 O2 Sat by Pulse Oximetry 93 Oriented: Normal Eyes: Normal Respiratory: Clear Throughout Cardiovascular: Normal Auscultation: Bowel Sounds: Normal Palpation: Normal Tenderness: Normal Skin: Normal Musculoskeletal: Normal Psychiatric: Normal Mood Description: Calm Affect: Normal Speech Pattern: Clear and Appropriate Assessment/Plan (1) Generalized weakness: Status: Acute (2) Recurrent falls: Status: Chronic (3) Hypomagnesemia: Status: Acute (4) HTN (hypertension): Qualifiers: Hypertension type: primary hypertension Qualified Code(s): I10 - Essential (primary) hypertension Status: Chronic (5) Hypokalemia: Status: Acute Review H&P Reviewed: Yes Patient was examined?: Yes
[2024-11-06] MEDS: NS + KCL 20 MEQ/L 1,000 ML with MAGNESIUM SULFATE 50% INJ VIAL 1 G IV SCH (10:34)
[2024-11-06] MEDS: COLACE CAP 100 MG PO PRN (20:48)
[2024-11-06] MEDS: MILK OF MAGNESIA PO PRN (20:48)
[2024-11-06] MEDS: DESYREL PO SCH (20:48)
[2024-11-07 05:51] LABS: MEAN PLATELET VOLUME 8.5 fL (7.4-11.0); RED CELL DISTRIBUTION WIDTH 13.3 % (11.6-16.5)
[2024-11-07 06:08] LABS: COR CA(FOR HYPOALB) 10.8 mg/dL (8.5-10.1); CREATININE 0.60 mg/dL (0.55-1.02); eGFR NON BLACK RACES > 60 (>60)
[2024-11-07] MEDS ORDERED: CONSULT PHARMACY - POTASSIUM & MAGNESIUM XX SCH (07:00)
--- NOTE | 2024-11-07 07:32 | RAD ---
EXAM: Portable AP chest HISTORY: Elevated WBC COMPARISON: 08/12/2024 FINDINGS: Heart size normal. The right chest is clear. Increased linear stranding noted in the retrocardiac left lower lobe without evidence for airspace consolidation or vascular congestion or pleural effusion. IMPRESSION: Minimal atelectasis noted left lower lung. THIS IS AN ELECTRONICALLY VERIFIED FINAL REPORT 11/07/2024 7:29 AM - Electronically signed by Jeet Flores MD
[2024-11-07] MEDS: MAG-OX TAB PO SCH (08:10)
[2024-11-07] MEDS: K-DUR TAB 20 MEQ PO SCH (08:10)
--- NOTE | 2024-11-07 11:22 | PCM.PROG ---
Progress Note Progress Note for Day of Date of Exam: 11/07/24 Subjective Subjective: Patient is a 74-year-old female admitted for generalized weakness, failure to thrive, cystitis. This morning she is resting in bed. No acute events overnight. Labs/imaging: WBC 11.9, hemoglobin 10.4, platelets 345, sodium 138, potassium 3.4, creatinine 0.60, glucose 106, magnesium 1.9, AIT for urine pending. Chest x-ray yesterday revealed atelectasis of the left lower lobe. Patient is currently receiving IV antibiotics Rocephin. Patient continues to feel weak and is having difficulty activities of daily living. She would benefit from additional physical therapy and rehab. Will work with case management on swing bed status. Otherwise continue current treatment plan. Continue closely monitor follow-up labs/imaging. Past Medical Family Social History Allergies: Allergies No Known Allergies Allergy (Verified 08/10/24 17:00) Review of Systems ROS changes noted: see HPI Vital Signs and I&O's Vital Signs: Vital Signs Temperature 98.4 F Temperature 97.9 F Pulse Rate [Left Radial] 92 Pulse Rate [Left Radial] 93 Respiratory Rate 18 Respiratory Rate 18 Blood Pressure [Right Arm] 167/68 Blood Pressure [Right Arm] 146/75 O2 Sat by Pulse Oximetry 96 O2 Sat by Pulse Oximetry 96 Intake and Output: Intake & Output 11/04/24 11/05/24 11/06/24 11/07/24 23:59 23:59 23:59 23:59 Intake Total 120 / 120 2323 / 2323 Output Total 1100 / 1100 Balance 120 / 120 1223 / 1223 Physical Exam Oriented: Normal Eyes: Normal Respiratory: Normal Cardiovascular: Normal Auscultation: Bowel Sounds: Normal Tenderness: Normal Skin: Normal Musculoskeletal: Normal Psychiatric: Normal Mood Description: Calm Affect: Normal Speech Pattern: Clear and Appropriate Laboratory and Diagnostics 11/07/24 05:08 11/07/24 05:08 Labs: Laboratory WBC 11.9 X10^3/uL (3.6-10.0) H 11/07/24 05:08 RBC 3.39 X10^6/uL (3.5-5.4) L 11/07/24 05:08 Hgb 10.4 g/dL (12.0-16.0) L 11/07/24 05:08 Hct 30.5 % (36.0-47.0) L 11/07/24 05:08 MCV 89.9 fL (80.0-100.0) 11/07/24 05:08 MCH 30.7 pg (27.0-34.0) 11/07/24 05:08 MCHC 34.1 g/dL (33.0-35.0) 11/07/24 05:08 RDW 13.3 % (11.6-16.5) 11/07/24 05:08 Plt Count 345 X10^3/uL (150.0-450.0) 11/07/24 05:08 MPV 8.5 fL (7.4-11.0) 11/07/24 05:08 Neut % (Auto) 77.2 % (42.0-75.0) H 11/07/24 05:08 Lymph % (Auto) 14.9 % (21.0-51.0) L 11/07/24 05:08 [place] % (Auto) 5.7 % (0.0-13.0) 11/07/24 05:08 Eos % (Auto) 0.9 % (0.9-2.9) 11/07/24 05:08 Baso % (Auto) 1.3 % (0.2-1.0) H 11/07/24 05:08 Neut # (Auto) 9.2 x10^3/uL (2.2-4.8) H 11/07/24 05:08 Lymph # (Auto) 1.8 X10^3/uL (1.3-2.9) 11/07/24 05:08 [place] # (Auto) 0.7 x10^3/uL (0.3-0.8) 11/07/24 05:08 Eos # (Auto) 0.1 x10^3/uL (0.0-0.2) 11/07/24 05:08 Baso # (Auto) 0.2 X10^3/uL (0.0-0.1) H 11/07/24 05:08 Absolute Nucleated RBC 0.1 /100WBC 11/07/24 05:08 Sodium 138 mmol/L (136-145) 11/07/24 05:08 Corrected Sodium TNP 11/07/24 05:08 Potassium 3.4 mmol/L (3.5-5.1) L 11/07/24 05:08 Chloride 102 mmol/L (98-107) 11/07/24 05:08 Carbon Dioxide 29.8 mmol/L (21-32) 11/07/24 05:08 BUN 11 mg/dL (7-18) 11/07/24 05:08 Creatinine 0.60 mg/dL (0.55-1.02) 11/07/24 05:08 Est GFR (MDRD) Af Amer > 60 (>60) 11/07/24 05:08 Est GFR (MDRD) Non-Af > 60 (>60) 11/07/24 05:08 Glucose 106 mg/dL (65-99) H 11/07/24 05:08 Calcium 9.6 mg/dL (8.5-10.1) 11/07/24 05:08 Corrected Calcium 10.8 mg/dL (8.5-10.1) H 11/07/24 05:08 Magnesium 1.9 mg/dL (2.0-2.9) L 11/07/24 05:08 Total Bilirubin 0.20 mg/dL (0.2-1.0) 11/07/24 05:08 AST 18 Units/L (15-37) 11/07/24 05:08 ALT 36 Units/L (12-78) 11/07/24 05:08 Alkaline Phosphatase 102 Units/L (46-116) 11/07/24 05:08 Total Protein 6.8 g/dL (6.4-8.2) 11/07/24 05:08 Albumin 2.5 g/dL (3.4-5.0) L 11/07/24 05:08 Globulin 4.3 g/dL (2.5-4.5) 11/07/24 05:08 Albumin/Globulin Ratio 0.6 Ratio (1.1-2.1) L 11/07/24 05:08 Specimen Type Clean catch urine 11/06/24 03:20 Urine Color Yellow (YELLOW) 11/06/24 03:20 Urine Appearance Slightly hazy (CLEAR) 11/06/24 03:20 Urine pH 6.5 (5.0 - 8.0) 11/06/24 03:20 Ur Specific [place] 1.015 (1.000-1.030) 11/06/24 03:20 Urine Protein 2+ (NEGATIVE) 11/06/24 03:20 Urine Glucose (UA) Negative (NEGATIVE) 11/06/24 03:20 Urine Ketones Negative (NEGATIVE) 11/06/24 03:20 Urine Blood Negative (NEGATIVE) 11/06/24 03:20 Urine Nitrite Negative (NEGATIVE) 11/06/24 03:20 Urine Bilirubin Negative (NEGATIVE) 11/06/24 03:20 Urine Urobilinogen 1+ (NORMAL) 11/06/24 03:20 Ur Leukocyte Esterase Negative (NEGATIVE) 11/06/24 03:20 Urine RBC 0-2 /HPF (0-3) 11/06/24 03:20 Urine WBC 3-5 /HPF (0-5) 11/06/24 03:20 Ur Squamous Epith Cells Many /HPF (NEGATIVE) 11/06/24 03:20 Urine Bacteria Negative /HPF (NEGATIVE) 11/06/24 03:20 Ur Culture Indicated? No/not indicated 11/06/24 03:20 Infect Dis PCR Plus See scanned report 11/06/24 03:20 Plan (1) Generalized weakness: Status: Acute (2) Recurrent falls: Status: Chronic (3) Hypomagnesemia: Status: Acute (4) HTN (hypertension): Status: Chronic Qualifiers: Hypertension type: primary hypertension Qualified Code(s): I10 - Essential (primary) hypertension (5) Hypokalemia: Status: Acute
[2024-11-08 05:07] LABS: MEAN PLATELET VOLUME 8.5 fL (7.4-11.0); RED CELL DISTRIBUTION WIDTH 13.5 % (11.6-16.5)
[2024-11-08 05:24] LABS: COR CA(FOR HYPOALB) 10.6 mg/dL (8.5-10.1); CREATININE 0.61 mg/dL (0.55-1.02); eGFR NON BLACK RACES > 60 (>60)
--- NOTE | 2024-11-08 14:04 | NOTE.SOAP ---
Soap Note Note for Day of Date of Exam: 11/08/24 Subjective Data Subjective Data: Seems to be improving. Rehab on Monday. Vitals and labs overall stable. She was leukocytotic and tachycardic on admission. Objective Data Objective Data: Elderly female that appears tired. Heart regular rate and rhythm, lungs clear, bowel sounds present. Belly is soft and nontender. Neck full range of motion. Head NCAT, EOMI, hearing grossly intact conversation. Assessment Assessment: 1. Sepsis (WBCs, HR, UTI) 2. Generalized weakness 3. Recurrent falls 4. Benign ess HTN Plan Plan: Continue current. No medication changes today. Plan on rehab discharge Monday
[2024-11-09 04:31] LABS: RED CELL DISTRIBUTION WIDTH 13.4 % (11.6-16.5)
[2024-11-09 04:36] LABS: MEAN PLATELET VOLUME 7.9 fL (7.4-11.0)
[2024-11-09 04:41] LABS: COR CA(FOR HYPOALB) 10.9 mg/dL (8.5-10.1); COR NA(FOR HYPERGLY) 141 mmol/L (136-145); CREATININE 0.62 mg/dL (0.55-1.02); eGFR NON BLACK RACES > 60 (>60)
--- NOTE | 2024-11-09 12:43 | NOTE.SOAP ---
Soap Note Note for Day of Date of Exam: 11/09/24 Subjective Data Subjective Data: No overnight events. Heart rate did get up to 130 on telemetry when she sat up to on the edge of the bed. Patient was asymptomatic and slow down once she laid back. Currently resting comfortably in bed. Objective Data Objective Data: Heart regular rate and rhythm, lungs clear, bowel sounds present. Resting comfortably in bed. Assessment Assessment: 1. Sepsis (WBCs, HR, UTI) 2. Generalized weakness 3. Sinus tachycardia, suspect secondary to deconditioning. 4. Benign ess HTN Plan Plan: PT/OT. Continue current medications. Consider increasing valsartan versus addition of beta-tamara
[2024-11-10 05:06] LABS: RED CELL DISTRIBUTION WIDTH 13.4 % (11.6-16.5)
[2024-11-10 05:11] LABS: MEAN PLATELET VOLUME 8.1 fL (7.4-11.0)
[2024-11-10 05:17] LABS: COR CA(FOR HYPOALB) 10.9 mg/dL (8.5-10.1); COR NA(FOR HYPERGLY) 139 mmol/L (136-145); CREATININE 0.77 mg/dL (0.55-1.02); eGFR NON BLACK RACES > 60 (>60)
[2024-11-11 04:27] VITALS: TEMP 98.4
[2024-11-11 05:49] LABS: MEAN PLATELET VOLUME 7.4 fL (7.4-11.0); RED CELL DISTRIBUTION WIDTH 13.3 % (11.6-16.5)
[2024-11-11 06:04] LABS: COR CA(FOR HYPOALB) 11.1 mg/dL (8.5-10.1); CREATININE 0.63 mg/dL (0.55-1.02); eGFR NON BLACK RACES > 60 (>60)
[2024-11-11 08:12] VITALS: BP 155/70; PULSE 105; RESP 18; O2SAT 96
--- NOTE | 2024-11-11 09:31 | NOTE.SOAP ---
Soap Note Note for Day of Date of Exam: 11/10/24 Subjective Data Subjective Data: Patient feeling better today. Requesting to discharge today or tomorrow to home. Stable anemia and thrombocytosis. Ambulate in the hallways in the room with minimal assistance. Objective Data Objective Data: Well-developed, well-nourished female in no acute distress. Hearing intact conversation, head NCAT, EOMI. Heart regular in rhythm with clear lungs. Belly is soft and nontender with bowel sounds present. Assessment Assessment: 1. Sepsis (WBCs, HR, UTI) 2. Generalized weakness 3. Sinus tachycardia, suspect secondary to deconditioning. 4. Benign ess HTN Plan Plan: Consider home health/OT/PT tomorrow. Continue current. OOB more.
--- NOTE | 2024-11-11 16:27 | W.DIS.FURT ---
Summary of Discharge Discharge Summary of Date Date of Exam: 11/11/24 Admission Date Date of Admission: 11/06/24 Admission Diagnosis Hospital Course: Ms. Dooley is a 74-year-old female who presented with generalized weakness and fall. She contacted her PCPs office and was concerned that she might have a UTI. Patient was directly admitted for further care. Initial workup showed elevated WBC, low magnesium and potassium. She was started on IV fluids and electrolyte replacement. Her UA was negative. AIT UTI panel is pending. She has been on IV Rocephin. She does report feeling better this morning. She denies having any chest pain, shortness of breath, nausea or vomiting. Labs to monitor daily and electrolytes replaced as needed. She was initially started on antibiotics and fluids. Her chest x-ray was negative. UA was negative. Physical therapy was consulted. She was feeling better and tolerating p.o. intake. Patient has a history of recurrent falls and does not have assistance at home. Patient and family agreed to swing bed for physical therapy. Patient completed antibiotics and her labs were better. WBC normal. She was stable to be transition to swing bed for physical therapy. Vital Signs: Vital Signs (72 hours) 11/08/24 12:00 11/08/24 15:18 11/08/24 19:00 Temperature 97.7 F 97.5 F L Pulse Rate [Left Radial] 101 H 104 H Respiratory Rate 20 20 Blood Pressure [Left Arm] 160/75 143/71 O2 Sat by Pulse Oximetry 98 97 Oxygen Delivery Method Room Air Room Air Room Air 11/08/24 19:23 11/08/24 23:02 11/09/24 03:37 Temperature 98.1 F 98.0 F 97.6 F Pulse Rate [Left Radial] 101 H 101 H 102 H Respiratory Rate 19 20 19 Blood Pressure [Left Arm] 133/75 153/72 143/66 O2 Sat by Pulse Oximetry 99 95 97 Oxygen Delivery Method Room Air Room Air Room Air 11/09/24 07:00 11/09/24 07:15 11/09/24 08:30 Temperature 97.6 F Pulse Rate [Left Radial] 126 H 102 H Respiratory Rate 19 Blood Pressure [Left Arm] 143/85 O2 Sat by Pulse Oximetry 98 Oxygen Delivery Method Room Air Room Air 11/09/24 11:24 11/09/24 12:22 11/09/24 15:19 Temperature 97.7 F 97.6 F Pulse Rate [Left Radial] 112 H 103 H 103 H Respiratory Rate 19 19 Blood Pressure [Left Arm] 179/87 137/69 169/76 O2 Sat by Pulse Oximetry 99 97 Oxygen Delivery Method Room Air Room Air 11/09/24 19:00 11/09/24 20:00 11/10/24 00:00 Temperature 98.5 F 97.5 F L Pulse Rate [Left Radial] 102 H 99 H Respiratory Rate 19 19 Blood Pressure [Left Arm] 134/71 147/71 O2 Sat by Pulse Oximetry 97 95 Oxygen Delivery Method Room Air Room Air Room Air 11/10/24 04:00 11/10/24 07:00 11/10/24 08:00 Temperature 98 F 98.1 F Pulse Rate [Left Radial] 106 H 113 H Respiratory Rate 19 20 Blood Pressure [Left Arm] 144/82 175/89 O2 Sat by Pulse Oximetry 96 97 Oxygen Delivery Method Room Air Room Air Room Air 11/10/24 12:00 11/10/24 16:00 11/10/24 19:00 Temperature 98.3 F 98.3 F Pulse Rate [Left Radial] 102 H 106 H Respiratory Rate 20 19 Blood Pressure [Left Arm] 135/71 137/78 O2 Sat by Pulse Oximetry 97 98 Oxygen Delivery Method Room Air Room Air Room Air 11/10/24 19:40 11/11/24 00:00 11/11/24 04:00 Temperature 98.8 F 98.2 F 98.4 F Pulse Rate [Left Radial] 107 H 101 H 98 H Respiratory Rate 19 19 17 Blood Pressure [Left Arm] 129/79 134/66 153/73 O2 Sat by Pulse Oximetry 98 95 97 Oxygen Delivery Method Room Air Room Air Room Air 11/11/24 08:00 11/11/24 08:18 Temperature 98.4 F Pulse Rate [Left Radial] 105 H Respiratory Rate 18 Blood Pressure [Left Arm] 155/70 O2 Sat by Pulse Oximetry 96 Oxygen Delivery Method Room Air Room Air Labs: Laboratory Last Values WBC 9.6 X10^3/uL (3.6-10.0) 11/11/24 05:28 RBC 3.59 X10^6/uL (3.5-5.4) 11/11/24 05:28 Hgb 10.9 g/dL (12.0-16.0) L 11/11/24 05:28 Hct 32.2 % (36.0-47.0) L 11/11/24 05:28 MCV 89.7 fL (80.0-100.0) 11/11/24 05:28 MCH 30.4 pg (27.0-34.0) 11/11/24 05:28 MCHC 33.9 g/dL (33.0-35.0) 11/11/24 05:28 RDW 13.3 % (11.6-16.5) 11/11/24 05:28 Plt Count 470 X10^3/uL (150.0-450.0) H 11/11/24 05:28 MPV 7.4 fL (7.4-11.0) 11/11/24 05:28 Neut % (Auto) 68.3 % (42.0-75.0) 11/11/24 05:28 Lymph % (Auto) 21.4 % (21.0-51.0) 11/11/24 05:28 [place] % (Auto) 5.0 % (0.0-13.0) 11/11/24 05:28 Eos % (Auto) 4.0 % (0.9-2.9) H 11/11/24 05:28 Baso % (Auto) 1.3 % (0.2-1.0) H 11/11/24 05:28 Neut # (Auto) 6.5 x10^3/uL (2.2-4.8) H 11/11/24 05:28 Lymph # (Auto) 2.1 X10^3/uL (1.3-2.9) 11/11/24 05:28 [place] # (Auto) 0.5 x10^3/uL (0.3-0.8) 11/11/24 05:28 Eos # (Auto) 0.4 x10^3/uL (0.0-0.2) H 11/11/24 05:28 Baso # (Auto) 0.1 X10^3/uL (0.0-0.1) 11/11/24 05:28 Absolute Nucleated RBC 0.2 /100WBC 11/11/24 05:28 Sodium 140 mmol/L (136-145) 11/11/24 05:28 Corrected Sodium TNP 11/11/24 05:28 Potassium 3.9 mmol/L (3.5-5.1) 11/11/24 05:28 Chloride 104 mmol/L (98-107) 11/11/24 05:28 Carbon Dioxide 29.7 mmol/L (21-32) 11/11/24 05:28 BUN 7 mg/dL (7-18) 11/11/24 05:28 Creatinine 0.63 mg/dL (0.55-1.02) 11/11/24 05:28 Est GFR (MDRD) Af Amer > 60 (>60) 11/11/24 05:28 Est GFR (MDRD) Non-Af > 60 (>60) 11/11/24 05:28 Glucose 109 mg/dL (65-99) H 11/11/24 05:28 Calcium 10.2 mg/dL (8.5-10.1) H 11/11/24 05:28 Corrected Calcium 11.1 mg/dL (8.5-10.1) H 11/11/24 05:28 Magnesium 2.0 mg/dL (2.0-2.9) 11/11/24 05:28 Total Bilirubin 0.10 mg/dL (0.2-1.0) L 11/11/24 05:28 AST 11 Units/L (15-37) L 11/11/24 05:28 ALT 22 Units/L (12-78) 11/11/24 05:28 Alkaline Phosphatase 96 Units/L (46-116) 11/11/24 05:28 Total Protein 7.3 g/dL (6.4-8.2) 11/11/24 05:28 Albumin 2.9 g/dL (3.4-5.0) L 11/11/24 05:28 Globulin 4.4 g/dL (2.5-4.5) 11/11/24 05:28 Albumin/Globulin Ratio 0.7 Ratio (1.1-2.1) L 11/11/24 05:28 Specimen Type Clean catch urine 11/06/24 03:20 Urine Color Yellow (YELLOW) 11/06/24 03:20 Urine Appearance Slightly hazy (CLEAR) 11/06/24 03:20 Urine pH 6.5 (5.0 - 8.0) 11/06/24 03:20 Ur Specific [place] 1.015 (1.000-1.030) 11/06/24 03:20 Urine Protein 2+ (NEGATIVE) 11/06/24 03:20 Urine Glucose (UA) Negative (NEGATIVE) 11/06/24 03:20 Urine Ketones Negative (NEGATIVE) 11/06/24 03:20 Urine Blood Negative (NEGATIVE) 11/06/24 03:20 Urine Nitrite Negative (NEGATIVE) 11/06/24 03:20 Urine Bilirubin Negative (NEGATIVE) 11/06/24 03:20 Urine Urobilinogen 1+ (NORMAL) 11/06/24 03:20 Ur Leukocyte Esterase Negative (NEGATIVE) 11/06/24 03:20 Urine RBC 0-2 /HPF (0-3) 11/06/24 03:20 Urine WBC 3-5 /HPF (0-5) 11/06/24 03:20 Ur Squamous Epith Cells Many /HPF (NEGATIVE) 11/06/24 03:20 Urine Bacteria Negative /HPF (NEGATIVE) 11/06/24 03:20 Ur Culture Indicated? No/not indicated 11/06/24 03:20 Infect Dis PCR Plus See scanned report 11/06/24 03:20 Reason For Visit: UTI, FTT, GENERALIZED WEAKNESS Discharge Diagnosis All Active Problems (Updated 11/06/24 @ 10:16 by Shobha Wilder MD) Hypokalemia (Acute) Proximal humerus fracture (Acute) HTN (hypertension) (Chronic) Pulmonary edema (Acute) Hypomagnesemia (Acute) Clavicle fracture (Acute) Recurrent falls (Chronic) Generalized weakness (Acute) UTI (urinary tract infection) (Chronic) Plan of Treatment: Continue with present treatment and follow up plan. Pt is to keep follow up appointment as instructed and take medications as ordered. Discharge Medications Discharge Medications: No Known Allergies Allergy (Verified 08/10/24 17:00) CONTINUE taking the following medications celecoxib 200 mg capsule 200 mg PO BID 11/05/24 [History] valsartan 160 mg-hydrochlorothiazide 12.5 mg tablet 1 tab PO QDAY 11/05/24 [History] New Prescriptions cefdinir 300 mg capsule 300 mg PO BID 7 days #14 caps 11/07/24 [Rx] Discharge Disposition Discharge Disposition: swing bed Discharge Condition: stable Discharge Plan Discharge Plan Hospital Course: Ms. Dooley is a 74-year-old female who presented with generalized weakness and fall. She contacted her PCPs office and was concerned that she might have a UTI. Patient was directly admitted for further care. Initial workup showed elevated WBC, low magnesium and potassium. She was started on IV fluids and electrolyte replacement. Her UA was negative. AIT UTI panel is pending. She has been on IV Rocephin. She does report feeling better this morning. She denies having any chest pain, shortness of breath, nausea or vomiting. Labs to monitor daily and electrolytes replaced as needed. She was initially started on antibiotics and fluids. Her chest x-ray was negative. UA was negative. Physical therapy was consulted. She was feeling better and tolerating p.o. intake. Patient has a history of recurrent falls and does not have assistance at home. Patient and family agreed to swing bed for physical therapy. Patient completed antibiotics and her labs were better. WBC normal. She was stable to be transition to swing bed for physical therapy. Patient Disposition: 62 XFER/DISC TO [facility] Condition: Stable Health Concerns: Post Hospitalization: new medications and changes needed to prevent readmission or further decline. Pt educated and given instructions on all concerns. Care Plan Goals: Problem: Infection Goal: Temperature within normal limits. Resolved infection. Instructions: Follow provided instructions. Follow up with primary physician as directed. Contact primary care physician or report to the closest Emergency Room if condition worsens. Plan of Treatment: Continue with present treatment and follow up plan. Pt is to keep follow up appointment as instructed and take medications as ordered. Prescription drug monitoring program results: PDMP reviewed and no concerns identified Prescriptions: New cefdinir 300 mg Capsule 300 mg PO BID 7 Days Qty: 14 0RF Continued trazodone 50 mg tablet 50 mg PO QPM meclizine 25 mg tablet 25 mg PO TID PRN amlodipine 10 mg tablet 10 mg PO QDAY Linzess 72 mcg capsule 72 mcg PO DAILY Patient Comments: [NO ORIGINAL SIG] celecoxib 200 mg capsule 200 mg PO BID valsartan-hydrochlorothiazide 160-12.5 mg tablet 1 tab PO QDAY Orders to Discharge Patient Discharge Orders: Discharge (Routine); Ordered 11/11/24 Ordered By: Shobha Wilder Follow ups/Referrals Follow ups/Referrals: [employer]. [Other] Jann Vargas [STAFF PHYSICIAN, MEDICAL] - 11/13/24 9:30 am Instructions Instructions: Hypomagnesemia, Hypokalemia, Weakness: What to Know, [id number], Malnutrition, Adult, [id number] Stand Alone Forms: Find Help Web Site, [facility] Follow Up Care Print Language: MONGOLIAN
== END 2024-11-11 11:29 | disposition swing bed (61) ==
LOC: MED/SURG
PROVIDERS: ADMIT Internal Medicine; ATTEND Internal Medicine
DX: D72.828 Other elevated white blood cell count; Z74.2 Need for assistance at home and no other household member able to render care; E87.1 Hypo-osmolality and hyponatremia; R53.1 Weakness; R73.09 Other abnormal glucose; R26.89 Other abnormalities of gait and mobility; R29.6 Repeated falls; R62.7 Adult failure to thrive; N39.0 Urinary tract infection, site not specified; E83.42 Hypomagnesemia; I10 Essential (primary) hypertension; E87.6 Hypokalemia; J98.11 Atelectasis; R94.31 Abnormal electrocardiogram [ECG] [EKG]; R00.0 Tachycardia, unspecified

== ENCOUNTER 2024-11-11 11:30 | Inpatient (IN) ==
[2024-11-11] MEDS ORDERED: MILK OF MAGNESIA PO PRN (11:57)
[2024-11-11] MEDS ORDERED: COLACE CAP 100 MG PO PRN (11:57)
[2024-11-11 12:06] VITALS: BMI 23.7
--- NOTE | 2024-11-11 13:03 | DR.H&P ---
H&P History & Physical for Day of: H&P Date: 11/11/24 Chief Complaint Chief Complaint: generalized weakness History of Present Illness History of Present Illness: Patient is a 74-year-old female with past medical history of hypertension, constipation, insomnia was recently admitted with generalized weakness and UTI. She did work with physical therapy and requires assistance. She will be admitted to swing bed for PT/OT. Labs/imaging reviewed: -WBC 9.6 hemoglobin 10.9 platelet 470 Plan: Admit as swing bed for physical therapy due to generalized weakness. Completed antibiotics. Resume home medications. Monitor labs as needed. Replace electrolytes as per protocol. Past Medical History Past Medical History: Hypertension Additional Medical History: VERTIGO, INSOMNIA Past Surgical History Surgical History: Hysterectomy, Ortho Surgery and Tonsillectomy Family History Family Medical History: Hypertension Social History Alcohol Use: None Drug Use: None Medications Home Medications: Home Medications Medication Instructions Recorded Confirmed Type amlodipine 10 mg tablet 10 mg PO QDAY 08/10/2411/05 History linaclotide 72 mcg capsule 72 mcg PO DAILY 08/10/24 History (Linzess) meclizine 25 mg tablet 25 mg PO TID PRN 08/10/24 History trazodone 50 mg tablet 50 mg PO QPM 08/10/24 History celecoxib 200 mg capsule 200 mg PO BID 11/05/2411/05 History valsartan 160 1 tab PO QDAY 11/05/2411/05 History mg-hydrochlorothiazide 12.5 mg tablet Allergies Allergies Allergy/AdvReac Type Severity Reaction Status Date / Time No Known Allergies Allergy Verified 08/10/24 17:00 Review of Systems Constitutional: Weakness Eyes: No Symptoms Reported ENT: No Symptoms Reported Respiratory: No Symptoms Reported Cardiovascular: No Symptoms Reported Gastrointestinal: No Symptoms Reported Genitourinary: No Symptoms Reported Musculoskeletal: Other (generalized pain) Skin: No Symptoms Reported Neurological: No Symptoms Reported Physical Exam Vital Signs: Vital Signs Blood Pressure [Left Arm] 155/70 Oriented: Normal Respiratory: Clear Throughout Cardiovascular: Normal Auscultation: Bowel Sounds: Normal Palpation: Normal Tenderness: Normal Skin: Normal Musculoskeletal: Normal Psychiatric: Normal Mood Description: Calm Speech Pattern: Clear and Appropriate Assessment/Plan (1) HTN (hypertension): Qualifiers: Hypertension type: primary hypertension Qualified Code(s): I10 - Essential (primary) hypertension Status: Chronic (2) Recurrent falls: Status: Chronic (3) Generalized weakness: Status: Acute (4) UTI (urinary tract infection): Qualifiers: Urinary tract infection type: acute cystitis Hematuria presence: wit hout hematuria Qualified Code(s): N30.00 - Acute cystitis without hematuria Status: Chronic Review H&P Reviewed: Yes Patient was examined?: Yes
--- NOTE | 2024-11-11 13:52 | PT/OTEVAL ---
PT/OT OBJECTIVES - HISTORY Prescription: OT Consult Diagnosis: UTI, FTT, Generalized Weakness Precautions: Fall risk PMH: Hypertension Prior Level of Function: Assistance Required Other: Per pt report, pt lives alone in a 1 story home with 2 steps and No HR. Pt is (I) with ADLs and IADLs. Pt is not getting HH. DME includes a cane. No pain stated during eval. History of Present Illness: Ms. Dooley is a 74-year-old female who came to the ER at [facility] with generalized weakness and fall. She contacted her PCPs office and was concerned that she might have a UTI. Patient was directly admitted to [facility] for further care. Initial workup showed elevated WBC, low magnesium and potassium. She was started on IV fluids and electrolyte replacement. Her UA was negative. Once pt was medically stable, she was eligible for swing bed program. - COGNITION Mental Status: Alert Communication Status: Verbal Ability to Follow Directions: 1 Step Affect: Calm - PAIN Left Arm Pain Scale: No Pain Comments: Pt reports no pain today No signs of pain Pain Scale: No Pain Generalized Comments: "I'm just sore all over, but mostly my back and legs" - BED MOBILITY Rolling: Supervision - TRANSFERS Supine to Sit: Supervision Sit to Stand: Minimal Toileting: Minimal Toileting comment: Janessa for safety - ADL'S Grooming: Setup Upper Body ADL: Minimum Lower Body ADL: Minimum Toileting: Minimum - BALANCE Static Sitting: Good Standing: Fair Dynamic Sitting: Good Standing: Fair - NEUROMOTOR/SENSATION Dave. Upper Ext Sensation: WFL Coordination: WFL - ROM Left UE ROM: Impaired Right UE ROM: WFL - STRENGTH Left UE Strength Number: 3 Other comment: 3- Right UE Strength Number: 4 - GAIT Pt. ambulates how many feet?: 150 Amount of assistance required: Minimal Type of Assistive Device: Rolling Walker - TREATMENT Date: 11/11/24 Time: 11:45 Treatment Type: Evaluation Treatment Provided: Therapeutic Activities, Other - TOTAL TREATMENT TIME Total Time: 30 - POST ASSESSMENT Post Assessment Comment: Pt seen for OT eval to assess CLOF in the swing bed program. Pt supine in bed upon arrival. Pt agreeable to participate in the eval. Pt completed sit to stand t/f with Janessa due to safety and decreased balance at this time. Pt completed functional mobility to the bathroom with verbal cues to keep the RW in front of her. Pt completed toileting with Jaenssa for clothing management. Pt stood at the sink to wash her hands with Janessa and she loss her balance once. Pt the t/f to the recliner and completed UB and LB dressing with Janessa. She used a comb to brush hair with with RUE. Call light within reach and all needs met at this time. Pt has limitations such as weakness, decreased balance, and decreased activity tolerance that limit (I) with ADLs. - EXIT DISPOSITION Exit Position: CHAIR Call light in reach: Yes PT/OT ASSESSMENT - PT Problem List: Other Other, Comment: - - OT Problem List: Decreased Mobility ADL's, Decreased Safety Aware, Decreased Dressing, Decreased Bathing, Decreased Grooming, Decreased UE Strength - OT GOALS Swimming Pool Attendant Goals Days: 20 Mobility for ADL's: Pt will complete safe t/f with SetUpA to increase (I) with ADLs. Safety Awareness: Pt will require no cues for safety awareness when completing functional t/f Dressing: Pt will complete UB dressing with Flora. Bathing: Pt will complete all bathing tasks with Flora for (I) with ADLs. Grooming: Pt will complete brushing teeth with Flora. Upper Ext. Strength/Use: Pt will increase BUE MMT by 1 grade to facilitate increased (I). Short Term Goals Days: 10 Mobility for ADL's: Pt will complete safe t/f with Flora to increase (I) with ADLs. Safety Awareness: Pt will require 2 or fewer cues for safety during ADLs or f unctional t/f. Dressing: Pt will complete LB dressing with Flora. Bathing: Pt will complete UB bathing with Janessa for safety. Grooming: Pt will brush her hair with Flora for increased (I) with ADLs. Upper Ext. Strength/Use: - Other: Pt will increase F.A.T. to G. - PATIENT GOALS Patient/Family Goals: To return home Rehabilitation Potential: Good with stated goals Justification for Potential: To increase (I) with ADLs for safe d/c planning - PLAN Suggested Treatment Plan: Therapeutic Activity, Self Care Training, Neuro Re- education, Therapeutic Ex with HEP, Patient Education - FREQUENCY AND DURATION PT: - OT: 5x/week for 20 days Expected Continuation of Care at Discharge: Skilled Care Facility, Determined on Progress
[2024-11-11] MEDS: NS + KCL 20 MEQ/L 1,000 ML with MAGNESIUM SULFATE 50% INJ VIAL 1 G IV SCH (16:27)
--- NOTE | 2024-11-11 17:55 | PT/OTEVAL ---
PT/OT OBJECTIVES - HISTORY Prescription: PT Consult Diagnosis: Frequent Falls, Deconditioning, Weakness Precautions: Fall Risk, Decreased Safety Awareness PMH: Vertigo, HTN, UTI, Frequent Falls, Hx LUE Fx, Hysterectomy, Cholecystectomy, Ortho Sx, Tonsillectomy Other: Per patient report- she resides at home alone in single story home with ramp to 2 steps to enter and HR. PLOF: Pt reports performing all mobility tasks independently and uses cane as needed. Pt states that she has not had any home health services recently. States she has no other DME. History of Present Illness: Ms. Dooley is a 72 year old female admitted to [facility] with UTI, frequent falls and weakness on 11/05/2024 and due to decline in overall mobility and balance pt unable to safely return home and was transitioned to swing bed program on the late morning of 11/11/2024. - COGNITION Mental Status: Alert, Oriented, Name, Place, Decreased Safety Awarenes Communication Status: Verbal Ability to Follow Directions: 1 Step - PAIN Left Arm Comments: Pt reports no pain today No signs of pain Pain Scale: No Pain Comments: No reports of pain at time of evaluation - BED MOBILITY Rolling: Supervision - TRANSFERS Supine to Sit: Supervision Sit to Stand: Supervision, Minimal Sit to Stand Comment: Touch to min assist Sit or Stand Pivot: Supervision, Minimal Sit or Stand Pivot Comment: Touch to min assist - BALANCE Static Sitting: Good Standing: Fair Balance Comment: Fair- Dynamic Sitting: Good Standing: Poor - NEUROMOTOR/SENSATION Dave. Lower Ext Sensation: WFL Coordination: WFL Proprioception: WFL - ROM Bilateral LE ROM: WFL Muscle Tone: WFL - STRENGTH Bilateral Hip Strength Number: 3 Bilateral Knee Strength Number: 4 Bilateral Ankle Strength Number: 4 - GAIT Pt. ambulates how many feet?: 150 Amount of Assistance Required: Minimal Type of Assistive Device: Rolling Walker, Straight Cane - TREATMENT Date: 11/11/24 Time: 13:15 Treatment Type: Evaluation Treatment Provided: Gait, Therapeutic Activities - TOTAL TREATMENT TIME Total Time: 60 - POST ASSESSMENT Post Assessment Comment: Pt was transitioned to swing bed rehab program on this date. Pt education provided on purpose of swing bed and goals with pt agreeing to stay and participate. Pt able to perform bed mobility tasks with supervision. Transfer level of assist varies from touch to min assist depending on surface height and level of distraction. Pt initially performed gait training with SPC; however, required min to mod assist for balance and safety- with increasing fatigue pt noted with posterior lean and increased Trendelenberg gait pattern noted. Following seated rest break, pt education on safety with using FWW for increased balance and gait technique. Pt was able to ambulate for an additional 150ft with improved gait noted. Pt was agreeable to sit in chair- left with all needs met and clip alarm donned for safety. Pt would benefit from continued participation in PT services to address remaining deficits and facilitate highest level of function and safe discharge planning. - EXIT DISPOSITION Exit Position: CHAIR Call light in reach: Yes Bed Alarm On: YES Comments: Chair clip alarm PT/OT ASSESSMENT - PT Problem List: Decreased Bed Mobility, Decreased Transfers, Decreased Gait, Decreased Balance, Decreased LE Strength - PT GOALS Short Term Goals Days: 10 Mobility: Pt will perform bed mobility tasks with mod I Transfers: Pt will perform functional transfers with mod I Gait: Pt will ambulate 400ft with FWW with mod I Balance: Pt will increase static standing balance to good Rn Internship Goals Days: 20 Gait: Pt will ambulate 400ft with SPC and mod I Balance: Pt will increase dynamic standing balance to good ROM/Strength: Pt will increase BLE strength to 5/5 Others: Pt will ascend/descend 2 stairs with mod I - OT GOALS Rn Internship Goals Days: 20 Mobility for ADL's: Pt will complete safe t/f with SetUpA to increase (I) with ADLs. Safety Awareness: Pt will require no cues for safety awareness when completing functional t/f Dressing: Pt will complete UB dressing with Flora. Bathing: Pt will complete all bathing tasks with Flora for (I) with ADLs. Grooming: Pt will complete brushing teeth with Flora. Upper Ext. Strength/Use: Pt will increase BUE MMT by 1 grade to facilitate increased (I). Short Term Goals Days: 10 Mobility for ADL's: Pt will complete safe t/f with Flora to increase (I) with ADLs. Safety Awareness: Pt will require 2 or fewer cues for safety during ADLs or functional t/f. Dressing: Pt will complete LB dressing with Flora. Bathing: Pt will complete UB bathing with Janessa for safety. Grooming: Pt will brush her hair with Flora for increased (I) with ADLs. Upper Ext. Strength/Use: - Other: Pt will increase F.A.T. to G. - PATIENT GOALS Patient/Family Goals: "I want to go home" Goals Discussed with Patient/Family: Yes Rehabilitation Potential: Good to meet stated goals Justification for Potential: Facilitate highest level of function and safe discharge planning. - PLAN Suggested Treatment Plan: Bed Mobility Training, Therapeutic Activity, Gait Training, Neuro Re-education, Therapeutic Ex with HEP, Patient Education, Family Education, Other Other comment: Manual Therapy - FREQUENCY AND DURATION PT: 5x per week x 20 days Expected Continuation of Care at Discharge: Home Health, Skilled Care Facility Anticipated Equipment Needs: Pt may need walker for safety with ambulation; will determine closer to DC
[2024-11-11] MEDS: CELEBREX PO SCH (20:45)
[2024-11-11] MEDS: DESYREL PO SCH (20:45)
[2024-11-12] MEDS: HYDROCHLOROTHIAZIDE 12.5 MG CAP PO SCH (08:07)
[2024-11-12] MEDS: NORVASC TAB 10 MG PO SCH (08:08)
[2024-11-12] MEDS: DIOVAN TAB 160 MG PO SCH (08:08)
[2024-11-13 05:59] LABS: MEAN PLATELET VOLUME 7.7 fL (7.4-11.0); RED CELL DISTRIBUTION WIDTH 13.3 % (11.6-16.5)
[2024-11-13 06:17] LABS: COR CA(FOR HYPOALB) 11.1 mg/dL (8.5-10.1); CREATININE 0.75 mg/dL (0.55-1.02); eGFR NON BLACK RACES > 60 (>60)
--- NOTE | 2024-11-13 09:41 | PCM.PROG ---
Progress Note Progress Note for Day of Date of Exam: 11/13/24 Subjective Subjective: Patient seen at bedside, no acute events overnight. She is currently admitted to swing bed. She has been working with physical therapy, doing better. Labs reviewed. Patient denies any complaints. Labs/imaging reviewed: - WBC 9.1 hemoglobin 11 creatinine 0.75 Plan: Continue current treatment. Continue physical therapy as tolerated. Fall precautions. Replace electrolytes as per protocol. Continue home medications. Monitor labs as needed. Past Medical Family Social History Allergies: Allergies No Known Allergies Allergy (Verified 08/10/24 17:00) Vital Signs and I&O's Vital Signs: Vital Signs Temperature 97.5 F Pulse Rate [Left Radial] 114 Respiratory Rate 20 Blood Pressure [Left Arm] 155/90 O2 Sat by Pulse Oximetry 98 Intake and Output: Intake & Output 11/10/24 11/11/24 11/12/24 11/13/24 23:59 23:59 23:59 23:59 Intake Total 2386 / 2386 2767 / 2767 Output Total 0 / 0 Balance 2386 / 2386 2767 / 2767 Physical Exam Oriented: Normal Respiratory: Normal Cardiovascular: Normal Auscultation: Bowel Sounds: Normal Palpation: Normal Tenderness: Normal Skin: Normal Musculoskeletal: Normal Psychiatric: Normal Mood Description: Calm Speech Pattern: Clear and Appropriate Laboratory and Diagnostics 11/13/24 05:08 11/13/24 05:08 Labs: Laboratory WBC 9.1 X10^3/uL (3.6-10.0) 11/13/24 05:08 RBC 3.60 X10^6/uL (3.5-5.4) 11/13/24 05:08 Hgb 11.0 g/dL (12.0-16.0) L 11/13/24 05:08 Hct 32.4 % (36.0-47.0) L 11/13/24 05:08 MCV 90.0 fL (80.0-100.0) 11/13/24 05:08 MCH 30.6 pg (27.0-34.0) 11/13/24 05:08 MCHC 34.0 g/dL (33.0-35.0) 11/13/24 05:08 RDW 13.3 % (11.6-16.5) 11/13/24 05:08 Plt Count 500 X10^3/uL (150.0-450.0) H 11/13/24 05:08 MPV 7.7 fL (7.4-11.0) 11/13/24 05:08 Neut % (Auto) 66.0 % (42.0-75.0) 11/13/24 05:08 Lymph % (Auto) 24.6 % (21.0-51.0) 11/13/24 05:08 [place] % (Auto) 5.5 % (0.0-13.0) 11/13/24 05:08 Eos % (Auto) 2.7 % (0.9-2.9) 11/13/24 05:08 Baso % (Auto) 1.2 % (0.2-1.0) H 11/13/24 05:08 Neut # (Auto) 6.0 x10^3/uL (2.2-4.8) H 11/13/24 05:08 Lymph # (Auto) 2.2 X10^3/uL (1.3-2.9) 11/13/24 05:08 [place] # (Auto) 0.5 x10^3/uL (0.3-0.8) 11/13/24 05:08 Eos # (Auto) 0.2 x10^3/uL (0.0-0.2) 11/13/24 05:08 Baso # (Auto) 0.1 X10^3/uL (0.0-0.1) 11/13/24 05:08 Absolute Nucleated RBC 0.1 /100WBC 11/13/24 05:08 Sodium 140 mmol/L (136-145) 11/13/24 05:08 Corrected Sodium TNP 11/13/24 05:08 Potassium 3.9 mmol/L (3.5-5.1) 11/13/24 05:08 Chloride 104 mmol/L (98-107) 11/13/24 05:08 Carbon Dioxide 30.9 mmol/L (21-32) 11/13/24 05:08 BUN 10 mg/dL (7-18) 11/13/24 05:08 Creatinine 0.75 mg/dL (0.55-1.02) 11/13/24 05:08 Est GFR (MDRD) Af Amer > 60 (>60) 11/13/24 05:08 Est GFR (MDRD) Non-Af > 60 (>60) 11/13/24 05:08 Glucose 97 mg/dL (65-99) 11/13/24 05:08 Calcium 10.2 mg/dL (8.5-10.1) H 11/13/24 05:08 Corrected Calcium 11.1 mg/dL (8.5-10.1) H 11/13/24 05:08 Total Bilirubin 0.10 mg/dL (0.2-1.0) L 11/13/24 05:08 AST 14 Units/L (15-37) L 11/13/24 05:08 ALT 18 Units/L (12-78) 11/13/24 05:08 Alkaline Phosphatase 88 Units/L (46-116) 11/13/24 05:08 Total Protein 7.2 g/dL (6.4-8.2) 11/13/24 05:08 Albumin 2.9 g/dL (3.4-5.0) L 11/13/24 05:08 Globulin 4.3 g/dL (2.5-4.5) 11/13/24 05:08 Albumin/Globulin Ratio 0.7 Ratio (1.1-2.1) L 11/13/24 05:08 Plan (1) HTN (hypertension): Status: Chronic Qualifiers: Hypertension type: primary hypertension Qualified Code(s): I10 - Essential (primary) hypertension (2) Recurrent falls: Status: Chronic (3) Generalized weakness: Status: Acute (4) UTI (urinary tract infection): Status: Chronic Qualifiers: Urinary tract infection type: acute cystitis Hematuria presence: w ithout hematuria Qualified Code(s): N30.00 - Acute cystitis without hematuria
[2024-11-14] MEDS ORDERED: TYLENOL 325 MG TAB PO PRN (18:39)
[2024-11-15 05:19] LABS: MEAN PLATELET VOLUME 7.6 fL (7.4-11.0); RED CELL DISTRIBUTION WIDTH 13.5 % (11.6-16.5)
[2024-11-15 05:33] LABS: COR CA(FOR HYPOALB) 11.2 mg/dL (8.5-10.1); CREATININE 0.75 mg/dL (0.55-1.02); eGFR NON BLACK RACES > 60 (>60)
[2024-11-15] MEDS ORDERED: CONSULT PHARMACY - POTASSIUM & MAGNESIUM XX SCH (06:00)
[2024-11-15] MEDS: MAG-OX TAB PO SCH (08:30)
[2024-11-15] MEDS: K-DUR TAB 20 MEQ PO SCH (08:30)
[2024-11-16] MEDS: CONSULT PHARMACY - POTASSIUM & MAGNESIUM XX SCH (09:58)
--- NOTE | 2024-11-16 11:06 | PCM.PROG ---
Progress Note Progress Note for Day of Date of Exam: 11/15/24 Subjective Subjective: Patient is resting in bed this morning. No acute events overnight. She is currently admitted to swing bed. She has been working with physical therapy and is gradually improving. Per physical therapy she is still very unstable. Labs reviewed. Patient denies any complaints. Labs/imaging reviewed: - WBC 9.7, hemoglobin 11.2, platelets 563, sodium 139, potassium 3.7, creatinine 0.75, glucose 99. Plan: Continue current treatment. Continue physical therapy as tolerated. Fall precautions. Replace electrolytes as per protocol. Continue home medications. Monitor labs as needed. Past Medical Family Social History Allergies: Allergies No Known Allergies Allergy (Verified 08/10/24 17:00) Review of Systems ROS changes noted: see HPI Vital Signs and I&O's Vital Signs: Vital Signs Temperature 97.8 F Pulse Rate [Left Radial] 105 Respiratory Rate 16 Blood Pressure [Left Arm] 140/72 O2 Sat by Pulse Oximetry 95 Intake and Output: Intake & Output 11/13/24 11/14/24 11/15/24 11/16/24 23:59 23:59 23:59 23:59 Intake Total 1200 / 1200 1000 / 1000 Balance 1200 / 1200 1000 / 1000 Physical Exam Oriented: Normal Respiratory: Normal Cardiovascular: Normal Auscultation: Bowel Sounds: Normal Tenderness: Normal Skin: Normal Musculoskeletal: Normal Psychiatric: Normal Mood Description: Calm Speech Pattern: Clear and Appropriate Laboratory and Diagnostics 11/15/24 04:45 11/15/24 04:45 Labs: Laboratory WBC 9.7 X10^3/uL (3.6-10.0) 11/15/24 04:45 RBC 3.62 X10^6/uL (3.5-5.4) 11/15/24 04:45 Hgb 11.2 g/dL (12.0-16.0) L 11/15/24 04:45 Hct 32.2 % (36.0-47.0) L 11/15/24 04:45 MCV 88.9 fL (80.0-100.0) 11/15/24 04:45 MCH 31.0 pg (27.0-34.0) 11/15/24 04:45 MCHC 34.8 g/dL (33.0-35.0) 11/15/24 04:45 RDW 13.5 % (11.6-16.5) 11/15/24 04:45 Plt Count 563 X10^3/uL (150.0-450.0) H 11/15/24 04:45 MPV 7.6 fL (7.4-11.0) 11/15/24 04:45 Neut % (Auto) 64.1 % (42.0-75.0) 11/15/24 04:45 Lymph % (Auto) 24.8 % (21.0-51.0) 11/15/24 04:45 [place] % (Auto) 5.9 % (0.0-13.0) 11/15/24 04:45 Eos % (Auto) 2.5 % (0.9-2.9) 11/15/24 04:45 Baso % (Auto) 2.7 % (0.2-1.0) H 11/15/24 04:45 Neut # (Auto) 6.2 x10^3/uL (2.2-4.8) H 11/15/24 04:45 Lymph # (Auto) 2.4 X10^3/uL (1.3-2.9) 11/15/24 04:45 [place] # (Auto) 0.6 x10^3/uL (0.3-0.8) 11/15/24 04:45 Eos # (Auto) 0.2 x10^3/uL (0.0-0.2) 11/15/24 04:45 Baso # (Auto) 0.3 X10^3/uL (0.0-0.1) H 11/15/24 04:45 Absolute Nucleated RBC 0.0 /100WBC 11/15/24 04:45 Sodium 139 mmol/L (136-145) 11/15/24 04:45 Corrected Sodium TNP 11/15/24 04:45 Potassium 3.7 mmol/L (3.5-5.1) 11/15/24 04:45 Chloride 103 mmol/L (98-107) 11/15/24 04:45 Carbon Dioxide 32.2 mmol/L (21-32) H 11/15/24 04:45 BUN 11 mg/dL (7-18) 11/15/24 04:45 Creatinine 0.75 mg/dL (0.55-1.02) 11/15/24 04:45 Est GFR (MDRD) Af Amer > 60 (>60) 11/15/24 04:45 Est GFR (MDRD) Non-Af > 60 (>60) 11/15/24 04:45 Glucose 99 mg/dL (65-99) 11/15/24 04:45 Calcium 10.6 mg/dL (8.5-10.1) H 11/15/24 04:45 Corrected Calcium 11.2 mg/dL (8.5-10.1) H 11/15/24 04:45 Magnesium 1.7 mg/dL (2.0-2.9) L 11/15/24 04:45 Total Bilirubin 0.10 mg/dL (0.2-1.0) L 11/15/24 04:45 AST 11 Units/L (15-37) L 11/15/24 04:45 ALT 18 Units/L (12-78) 11/15/24 04:45 Alkaline Phosphatase 90 Units/L (46-116) 11/15/24 04:45 Total Protein 7.4 g/dL (6.4-8.2) 11/15/24 04:45 Albumin 3.2 g/dL (3.4-5.0) L 11/15/24 04:45 Globulin 4.2 g/dL (2.5-4.5) 11/15/24 04:45 Albumin/Globulin Ratio 0.8 Ratio (1.1-2.1) L 11/15/24 04:45 Plan (1) HTN (hypertension): Status: Chronic Qualifiers: Hypertension type: primary hypertension Qualified Code(s): I10 - Essential (primary) hypertension (2) Recurrent falls: Status: Chronic (3) Generalized weakness: Status: Acute (4) UTI (urinary tract infection): Status: Chronic Qualifiers: Urinary tract infection type: acute cystitis Hematuria presence: w ithout hematuria Qualified Code(s): N30.00 - Acute cystitis without hematuria
[2024-11-16] MEDS: MAG-OX TAB PO SCH (11:28)
[2024-11-16] MEDS: K-DUR TAB 20 MEQ PO SCH (11:28)
[2024-11-18 06:10] LABS: MEAN PLATELET VOLUME 7.9 fL (7.4-11.0); RED CELL DISTRIBUTION WIDTH 13.7 % (11.6-16.5)
[2024-11-18 06:31] LABS: COR CA(FOR HYPOALB) 11.3 mg/dL (8.5-10.1); CREATININE 0.83 mg/dL (0.55-1.02); eGFR NON BLACK RACES > 60 (>60)
--- NOTE | 2024-11-18 09:40 | PCM.PROG ---
Progress Note Progress Note for Day of Date of Exam: 11/18/24 Subjective Subjective: Patient is resting in bed this morning. No acute events overnight. She is currently admitted to swing bed. She has been working with physical therapy and is gradually improving. She is a fall risk as per PT. Labs showed elevated corrected calcium. Labs/imaging reviewed: - WBC 10.1, hemoglobin 10.9, platelets 561, sodium 139, potassium 3.9, creatinine 0.83, glucose 100 -Corrected Ca: 11.3 Plan: Continue current treatment. Continue physical therapy as tolerated. Fall precautions. Replace electrolytes as per protocol. Hold HCTZ due to hypercalcemia. Continue other home medications. Monitor labs in the AM. Past Medical Family Social History Allergies: Allergies No Known Allergies Allergy (Verified 08/10/24 17:00) Vital Signs and I&O's Vital Signs: Vital Signs Temperature 97.5 F Pulse Rate [Left Radial] 118 Respiratory Rate 18 Blood Pressure [Left Arm] 126/74 O2 Sat by Pulse Oximetry 97 Intake and Output: Intake & Output 11/15/24 11/16/24 11/17/24 11/18/24 23:59 23:59 23:59 23:59 Intake Total 1000 / 1000 1460 / 1460 2049 120 / 120 Balance 1000 / 1000 1460 / 1460 2049 120 / 120 Physical Exam Oriented: Normal Respiratory: Normal Cardiovascular: Normal Auscultation: Bowel Sounds: Normal Palpation: Normal Tenderness: Normal Skin: Normal Musculoskeletal: Normal Psychiatric: Normal Mood Description: Calm Affect: Normal Speech Pattern: Clear and Appropriate Laboratory and Diagnostics 11/18/24 05:25 11/18/24 05:25 Labs: Laboratory WBC 10.1 X10^3/uL (3.6-10.0) H 11/18/24 05:25 RBC 3.51 X10^6/uL (3.5-5.4) 11/18/24 05: Hgb 10.9 g/dL (12.0-16.0) L 11/18/24 05:25 Hct 31.5 % (36.0-47.0) L 11/18/24 05:25 MCV 89.7 fL (80.0-100.0) 11/18/24 05: MCH 31.2 pg (27.0-34.0) 11/18/24 05:25 MCHC 34.8 g/dL (33.0-35.0) 11/18/24 05:25 RDW 13.7 % (11.6-16.5) 11/18/24 05:25 Plt Count 561 X10^3/uL (150.0-450.0) H 11/18/24 05:25 MPV 7.9 fL (7.4-11.0) 11/18/24 05:25 Neut % (Auto) 67.7 % (42.0-75.0) 11/18/24 05:25 Lymph % (Auto) 24.5 % (21.0-51.0) 11/18/24 05:25 [place] % (Auto) 4.4 % (0.0-13.0) 11/18/24 05:25 Eos % (Auto) 2.4 % (0.9-2.9) 11/18/24 05:25 Baso % (Auto) 1.0 % (0.2-1.0) 11/18/24 05:25 Neut # (Auto) 6.8 x10^3/uL (2.2-4.8) H 11/18/24 05:25 Lymph # (Auto) 2.5 X10^3/uL (1.3-2.9) 11/18/24 05:25 [place] # (Auto) 0.4 x10^3/uL (0.3-0.8) 11/18/24 05:25 Eos # (Auto) 0.2 x10^3/uL (0.0-0.2) 11/18/24 05:25 Baso # (Auto) 0.1 X10^3/uL (0.0-0.1) 11/18/24 05:25 Absolute Nucleated RBC 0.1 /100WBC 11/18/24 05:25 Sodium 139 mmol/L (136-145) 11/18/24 05:25 Corrected Sodium TNP 11/18/24 05:25 Potassium 3.9 mmol/L (3.5-5.1) 11/18/24 05:25 Chloride 102 mmol/L (98-107) 11/18/24 05:25 Carbon Dioxide 31.4 mmol/L (21-32) 07/14/25 05:25 BUN 13 mg/dL (7-18) 11/18/24 05:25 Creatinine 0.83 mg/dL (0.55-1.02) 11/18/24 05:25 Est GFR (MDRD) Af Amer > 60 (>60) 11/18/24 05:25 Est GFR (MDRD) Non-Af > 60 (>60) 11/18/24 05:25 Glucose 100 mg/dL (65-99) H 11/18/24 05:25 Calcium 10.7 mg/dL (8.5-10.1) H 11/18/24 05:25 Corrected Calcium 11.3 mg/dL (8.5-10.1) H 11/18/24 05:25 Magnesium 1.9 mg/dL (2.0-2.9) L 11/18/24 05:25 Total Bilirubin 0.20 mg/dL (0.2-1.0) 11/18/24 05:25 AST 11 Units/L (15-37) L 11/18/24 05:25 ALT 18 Units/L (12-78) 11/18/24 05:25 Alkaline Phosphatase 95 Units/L (46-116) 11/18/24 05:25 Total Protein 7.2 g/dL (6.4-8.2) 11/18/24 05:25 Albumin 3.3 g/dL (3.4-5.0) L 11/18/24 05:25 Globulin 3.9 g/dL (2.5-4.5) 11/18/24 05:25 Albumin/Globulin Ratio 0.8 Ratio (1.1-2.1) L 11/18/24 05:25 Plan (1) HTN (hypertension): Status: Chronic Qualifiers: Hypertension type: primary hypertension Qualified Code(s): I10 - Essential (primary) hypertension (2) Recurrent falls: Status: Chronic (3) Generalized weakness: Status: Acute (4) UTI (urinary tract infection): Status: Chronic Qualifiers: Urinary tract infection type: acute cystitis Hematuria presence: w ithout hematuria Qualified Code(s): N30.00 - Acute cystitis without hematuria (5) Hypercalcemia: Status: Acute
[2024-11-19 07:03] LABS: COR CA(FOR HYPOALB) 11.1 mg/dL (8.5-10.1); CREATININE 0.86 mg/dL (0.55-1.02); eGFR NON BLACK RACES > 60 (>60)
[2024-11-20 06:08] LABS: MEAN PLATELET VOLUME 8.3 fL (7.4-11.0); RED CELL DISTRIBUTION WIDTH 13.5 % (11.6-16.5)
[2024-11-20 06:23] LABS: COR CA(FOR HYPOALB) 10.9 mg/dL (8.5-10.1); CREATININE 0.83 mg/dL (0.55-1.02); eGFR NON BLACK RACES > 60 (>60)
[2024-11-20] MEDS ORDERED: CONSULT PHARMACY - POTASSIUM & MAGNESIUM XX SCH (08:00)
[2024-11-20] MEDS: MAG-OX TAB PO SCH (08:53)
--- NOTE | 2024-11-20 10:38 | PCM.PROG ---
Progress Note Progress Note for Day of Date of Exam: 11/20/24 Subjective Subjective: Patient is resting in bed this morning. No acute events overnight. She is currently admitted to swing bed. She has been working with physical therapy and has improved. She will be discharged tomorrow. Labs/imaging reviewed: - WBC 10.1, hemoglobin 11, platelets 512 sodium 140, potassium 3.9, creatinine 0.83, glucose 91 -Corrected Ca: 10.6 Plan: Continue current treatment. Continue physical therapy as tolerated. Fall precautions. Replace electrolytes as per protocol. Continue other home medications. Possible discharge home tomorrow. Past Medical Family Social History Allergies: Allergies No Known Allergies Allergy (Verified 08/10/24 17:00) Vital Signs and I&O's Vital Signs: Vital Signs Temperature 98.0 F Pulse Rate [Left Radial] 102 Respiratory Rate 21 Blood Pressure [Left Arm] 142/73 O2 Sat by Pulse Oximetry 99 Intake and Output: Intake & Output 11/17/24 11/18/24 11/19/24 11/20/24 23:59 23:59 23:59 23:59 Intake Total 2049 1740 / 1740 500 / 500 120 / 120 Balance 2049 1740 / 1740 500 / 500 120 / 120 Physical Exam Oriented: Normal Respiratory: Normal Cardiovascular: Normal Auscultation: Bowel Sounds: Normal Palpation: Normal Tenderness: Normal Skin: Normal Musculoskeletal: Normal Psychiatric: Normal Mood Description: Calm Affect: Normal Speech Pattern: Clear and Appropriate Laboratory and Diagnostics 11/20/24 05:12 11/20/24 05:12 Labs: Laboratory WBC 10.1 X10^3/uL (3.6-10.0) H 11/20/24 05:12 RBC 3.67 X10^6/uL (3.5-5.4) 11/20/24 05:12 Hgb 11.0 g/dL (12.0-16.0) L 11/20/24 05:12 Hct 32.9 % (36.0-47.0) L 11/20/24 05:12 MCV 89.7 fL (80.0-100.0) 11/20/24 05:12 MCH 30.1 pg (27.0-34.0) 11/20/24 05:12 MCHC 33.5 g/dL (33.0-35.0) 11/20/24 05:12 RDW 13.5 % (11.6-16.5) 11/20/24 05:12 Plt Count 512 X10^3/uL (150.0-450.0) H 11/20/24 05:12 MPV 8.3 fL (7.4-11.0) 11/20/24 05:12 Neut % (Auto) 62.4 % (42.0-75.0) 11/20/24 05:12 Lymph % (Auto) 28.9 % (21.0-51.0) 11/20/24 05:12 [place] % (Auto) 4.6 % (0.0-13.0) 11/20/24 05:12 Eos % (Auto) 2.7 % (0.9-2.9) 11/20/24 05:12 Baso % (Auto) 1.4 % (0.2-1.0) H 11/20/24 05:12 Neut # (Auto) 6.3 x10^3/uL (2.2-4.8) H 11/20/24 05:12 Lymph # (Auto) 2.9 X10^3/uL (1.3-2.9) 11/20/24 05:12 [place] # (Auto) 0.5 x10^3/uL (0.3-0.8) 11/20/24 05:12 Eos # (Auto) 0.3 x10^3/uL (0.0-0.2) H 11/20/24 05:12 Baso # (Auto) 0.1 X10^3/uL (0.0-0.1) 11/20/24 05:12 Absolute Nucleated RBC 0.1 /100WBC 11/20/24 05:12 Sodium 141 mmol/L (136-145) 11/20/24 05:12 Corrected Sodium TNP 11/20/24 05:12 Potassium 3.9 mmol/L (3.5-5.1) 11/20/24 05:12 Chloride 105 mmol/L (98-107) 11/20/24 05:12 Carbon Dioxide 28.3 mmol/L (21-32) 11/20/24 05:12 BUN 10 mg/dL (7-18) 11/20/24 05:12 Creatinine 0.83 mg/dL (0.55-1.02) 11/20/24 05:12 Est GFR (MDRD) Af Amer > 60 (>60) 11/20/24 05:12 Est GFR (MDRD) Non-Af > 60 (>60) 11/20/24 05:12 Glucose 91 mg/dL (65-99) 11/20/24 05:12 Calcium 10.3 mg/dL (8.5-10.1) H 11/20/24 05:12 Corrected Calcium 10.9 mg/dL (8.5-10.1) H 11/20/24 05:12 Magnesium 1.9 mg/dL (2.0-2.9) L 11/20/24 05:12 Total Bilirubin 0.20 mg/dL (0.2-1.0) 11/20/24 05:12 AST 14 Units/L (15-37) L 11/20/24 05:12 ALT 18 Units/L (12-78) 11/20/24 05:12 Alkaline Phosphatase 93 Units/L (46-116) 11/20/24 05:12 Total Protein 6.8 g/dL (6.4-8.2) 11/20/24 05:12 Albumin 3.3 g/dL (3.4-5.0) L 11/20/24 05:12 Globulin 3.5 g/dL (2.5-4.5) 11/20/24 05:12 Albumin/Globulin Ratio 0.9 Ratio (1.1-2.1) L 11/20/24 05:12 Plan (1) HTN (hypertension): Status: Chronic Qualifiers: Hypertension type: primary hypertension Qualified Code(s): I10 - Essential (primary) hypertension (2) Recurrent falls: Status: Chronic (3) Generalized weakness: Status: Acute (4) UTI (urinary tract infection): Status: Chronic Qualifiers: Urinary tract infection type: acute cystitis Hematuria presence: w ithout hematuria Qualified Code(s): N30.00 - Acute cystitis without hematuria (5) Hypercalcemia: Status: Acute
[2024-11-20 19:58] VITALS: O2SAT 98
[2024-11-21 08:13] VITALS: BP 127/73; PULSE 105; RESP 18; TEMP 98.1
== END 2024-11-21 11:25 | disposition home health service (06) | DRG 690 ==
LOC: MED/SURG 11:30
PROVIDERS: ADMIT Internal Medicine; ATTEND Internal Medicine
DX: N39.0 Urinary tract infection, site not specified; R62.7 Adult failure to thrive; R53.1 Weakness; E83.52 Hypercalcemia; R29.6 Repeated falls; R53.81 Other malaise; Z51.89 Encounter for other specified aftercare; R26.89 Other abnormalities of gait and mobility; E83.42 Hypomagnesemia; I10 Essential (primary) hypertension